=== PATIENT | female | born 1955 | race Caucasian/White ===

== ENCOUNTER 2023-05-17 07:36 | Outpatient (OUT) | payer BC, SELFPAY ==
[2023-05-17 08:29] LABS: Chol HDL Ratio 3.1; Cholesterol 135 mg/dL (<=200); HDL Cholesterol 44 mg/dL (40-60); LDL Cholesterol Calculated 73.6 mg/dL; Triglycerides 87 mg/dL (<=150); VLDL CHOLESTEROL 17.4 mg/dL
== END 2023-05-17 07:37 ==
LOC: LAB 07:39
PROVIDERS: PCP Family Medicine; Visit Provider Nurse Practitioner Family
DX: I25.10 Atherosclerotic heart disease of native coronary artery without angina pectoris (principal)
CPT/HCPCS: 36415; 80061

== ENCOUNTER 2023-06-14 12:46 | Outpatient (OUT) | payer BC, SELFPAY ==
[2023-06-14 14:12] LABS: Bilirubin Urine NEGATIVE (NEGATIVE); Blood Urine MODERATE (NEGATIVE); Glucose Urine UA NEGATIVE (NEGATIVE); Ketones Urine NEGATIVE (NEGATIVE); Leukocyte Esterase Urine MODERATE (NEGATIVE); Nitrite Urine POSITIVE (NEGATIVE); Protein Urine 30 mg/dL (NEG/TRACE); Specific Gravity Urine 1.025 (1.005-1.025); Urobilinogen Urine 0.2 EU/dL (0.2-1.0)
[2023-06-14 14:19] LABS: Clarity Urine CLOUDY (CLEAR); Color Urine YELLOW (YELLOW)
[2023-06-14 14:22] LABS: WBC Urine >100 #/HPF (NONE SEEN)
[2023-06-14 14:23] LABS: Bacteria Urine LARGE #/HPF (NONE SEEN); Mucus Urine NONE SEEN (NONE SEEN)
[2023-06-14 14:24] LABS: Squamous Epithelial Cell Urine FEW #/LPF (NONE/RARE)
== END 2023-06-14 12:47 | disposition home or self-care (01) ==
PROVIDERS: PCP Family Medicine; Visit Provider Internal Medicine
DX: N30.01 Acute cystitis with hematuria (principal)
CPT/HCPCS: 81001; 87086; 87186

== ENCOUNTER 2023-07-04 15:25 | Outpatient (OUT) | payer BC, SELFPAY ==
--- NOTE | 2023-07-04 16:04 | CA_ITS ---
Patient: MAXWELL TAI Exam Date: 07/04/2023 : 1955 Gender:F Ordering : MENDOZA NICK [facility] Admission #: [id number] Family : Order #: [id number] CLICK HERE TO VIEW EXAM ECHOCARDIOGRAM REPORT PROCEDURE: CA ECHO DOPPLER COMPLETE INDICATIONS: CAD, Chronic systolic heart failure COMPARISON: None. DESCRIPTION: COMPLETE ECHOCARDIOGRAM Real-time transthoracic echocardiography with 2D, M-mode, spectral and color flow Doppler performed. QUALITY: Technical quality was good. LEFT VENTRICLE: Normal chamber size. Normal left ventricular wall thickness. Global left ventricular systolic function is normal. LV EF: Visual estimation of left ventricular ejection fraction is 65-70% DIASTOLIC: Diastolic function is indeterminate. ATRIAL SEPTUM: LEFT ATRIUM: Mild dilatation. RIGHT ATRIUM: Mild dilatation. RIGHT VENTRICLE: Normal chamber size. Normal right ventricular systolic function. TRICUSPID VALVE: Normal mobility and thickness. No stenosis with mild regurgitation. Moderate pulmonary hypertension. RVSP 45 mmHg MITRAL VALVE: Normal mobility and thickness. No evidence of mitral valve stenosis. There is no mitral annular calcification. Trivial mitral regurgitation. AORTIC VALVE: Normal trileaflet appearance. No visible sclerosis. Normal leaflet mobility. No evidence of aortic valve stenosis. No aortic regurgitation. AORTIC ROOT: Normal diameter and appearance. PULMONIC VALVE: Normal thickness and mobility. No stenosis. No regurgitation. PERICARDIUM: No evidence of pericardial effusion. IVC: Collapses with inspirations. Normal size. PLEURA: CONCLUSION: 1. Normal left ventricular systolic function. LVEF is estimated at 65 to 70%. 2. Normal right ventricular size and systolic function. 3. Mild biatrial dilatation. 4. Mild tricuspid regurgitation. 5. Moderately elevated right-sided pressures. RVSP is 45 mmHg. 6. No pericardial effusion. Adult Echocardiography Procedure Report Left Ventricle LVEDD (3.7 - 5.6 cm): 5.43 cm LVESD (2.2 - 4.0 cm): 3.56 cm LVIVS thickness (0.6 - 1.2 cm): 0.96 cm LVPW thickness (0.5 - 1.0 cm): 1.01 cm e': 0.09 m/s E - e': 8.94 LVOT Max Gradient: 3.69 mm[Hg] LVOT Area (cm2): 0.96 m/s Peak Velocity (LVOT): 0.96 m/s Mean Velocity (LVOT): 0.60 m/s LVOT Diameter 2.03 cm Left Ventricular Ejection Fraction: 65-70% Left Atrium LA Volume Index (2D A2C): 41.91 ml/m2 Left Atrium Systolic Dimension: 4.77 cm Mitral Valve MV E to A Ratio: 1.08 Mitral Valve A-Wave Peak Velocity: 0.72 m/s Mitral Valve E-Wave Peak Velocity: 0.77 m/s Right Ventricle RV Internal Diastolic Dimension: 2.95 cm Aorta AO Root Diam: 2.75 cm Ascending Ao Diam: 2.58 cm Aortic Valve AoV Area (Peak Brad): 1.67 cm2, 1.67 cm2 AoV Area (VTI): 1.60 cm2, 1.60 cm2 Peak Velocity(Antegrade Flow): 1.86 m/s Peak Gradient(Antegrade Flow): 13.77 mm[Hg] Mean Velocity(Antegrade Flow): 1.24 m/s Mean Gradient(Antegrade Flow): 7.02 mm[Hg] Velocity Time Integral: 44.54 cm Tricuspid Valve Peak Velocity (Regurgitant Flow): 2.97 m/s, 2.82 m/s, 3.26 m/s Pulmonic Valve Mean Gradient: 3.22 mm[Hg], 3.70 mm[Hg] Mean Velocity: 0.85 m/s, 0.91 m/s Peak Velocity: 1.20 m/s Peak Gradient: 5.21 mm[Hg], 6.29 mm[Hg] Right Atrium Right Atrium Systolic Pressure: 46.77 ml, 46.77 ml Dictated by: Marv Cox M.D. on 07/04/2023 at 17:27 Approved by: Marv Cox M.D. on 07/04/2023 at 17:30
== END 2023-07-04 15:26 | disposition home or self-care (01) ==
LOC: CARD 15:27
PROVIDERS: PCP Family Medicine; Visit Provider Nurse Practitioner Family
DX: I25.10 Atherosclerotic heart disease of native coronary artery without angina pectoris (principal); I50.22 Chronic systolic (congestive) heart failure; I07.1 Rheumatic tricuspid insufficiency
CPT/HCPCS: 93306

== ENCOUNTER 2023-09-17 15:31 | Outpatient (OUT) | payer BC, SELFPAY ==
--- NOTE | 2023-09-17 15:55 | MM_ITS ---
Patient: MAXWELL TAI Exam Date: 09/17/2023 : 1955 Gender:F Ordering : DR Florencia Tipton M.D. Admission #: [id number] Family : Order #: [id number] CLICK HERE TO VIEW EXAM RADIOLOGY REPORT PROCEDURE: MM TOMOSYNTHESIS SCREENING BI COMPARISON: MG MAMM SCREEN 3D PETAR CAD, 09/06/2021. MG MAMM SCREEN 3D PETAR CAD, 09/10/2022. INDICATIONS: Screening Calculator Name NCI Breast Cancer Risk Assessment Tool 5 Year Breast Cancer Risk 3.60% Lifetime Breast Cancer Risk 12.60% Personal Breast Cancer No Personal Ovarian Cancer No Treatments None Family Cancers Mother with breast cancer at age 73; Father with skin cancer at age ~70. LOCATION: [facility] BREAST COMPOSITION: Heterogeneously dense,which may obscure small masses. FINDINGS: DIAGNOSTIC CATEGORY 1--NEGATIVE. NO CHANGE FROM COMPARISON ASSESSMENT. Scattered benign-appearing calcifications are present. RIGHT BREAST: No significant suspicious finding. LEFT BREAST: No significant suspicious finding. RECOMMENDATIONS: ROUTINE MAMMOGRAM AND CLINICAL EVALUATION IN 12 MONTHS. PLEASE NOTE: A NORMAL MAMMOGRAM DOES NOT EXCLUDE THE POSSIBILITY OF BREAST CANCER. A CLINICALLY SUSPICIOUS PALPABLE LUMP SHOULD BE BIOPSIED. Dictated by: Angel Young MD on 09/18/2023 at 06:48 Approved by: Angel Young MD on 09/18/2023 at 06:49
== END 2023-09-17 15:32 | disposition home or self-care (01) ==
LOC: MAMMO 15:31
PROVIDERS: PCP Family Medicine; Visit Provider Family Medicine
DX: Z12.31 Encounter for screening mammogram for malignant neoplasm of breast (principal); Z80.3 Family history of malignant neoplasm of breast; Z80.8 Family history of malignant neoplasm of other organs or systems
CPT/HCPCS: 77063; 77067

== ENCOUNTER 2023-11-22 07:05 | Outpatient (OUT) | payer BC, SELFPAY ==
[2023-11-22 07:25] LABS: Basophils Percent Auto 0.5 % (0.2-2.0); Eosinophils Absolute Auto 0.4 10^3/uL (0.0-0.7); Eosinophils Percent Auto 4.7 % (0.9-7.0); Hematocrit 42.9 % (36.0-48.0); Hemoglobin 14.3 g/dL (12.0-16.0); Immature Granulocytes Abs Auto 0.02 10^3/uL (0.00-0.03); Immature Granulocytes Pct Auto 0.2 % (0.0-0.5); Lymphocytes Absolute Auto 2.9 10^3/uL (1.2-3.8); Lymphocytes Percent Auto 35.5 % (20.5-60.0); Mean Corpuscular HGB Conc 33.3 g/dL (29.9-35.2); Mean Corpuscular Hemoglobin 30.2 pg (26.7-34.0); Mean Corpuscular Volume 90.7 fL (81.0-99.0); Mean Platelet Volume 10.3 fL (9.5-13.5); Monocytes Absolute Auto 0.8 10^3/uL (0.3-0.8); Neutrophils Absolute Auto 4.1 10^3/uL (1.4-6.5); Neutrophils Percent Auto 49.1 % (43.0-75.0); Platelet Count 310 10^3/uL (150-450); Red Blood Count 4.73 10^6/uL (4.20-5.40); Red Cell Distribution Width 12.2 % (11.0-15.0); White Blood Count 8.3 10^3/uL (4.0-11.0)
[2023-11-22 07:59] LABS: Estimated Average Glucose 131 mg/dL; Glycohemoglobin A1C 6.2 % (4.5-6.2)
[2023-11-22 08:13] LABS: Alanine Aminotransferase 23 U/L (14-59); Albumin Globulin Ratio 1.2; Albumin Level 3.8 g/dL (3.4-5.0); Alkaline Phosphatase 65 U/L (46-116); Anion Gap 10.8; Aspartate Amino Transferase 13 U/L (15-37); BUN Creatinine Ratio 33.3; Bilirubin Total 0.5 mg/dL (0.2-1.0); Calcium 9.4 mg/dL (8.5-10.1); Carbon Dioxide 30.7 mmol/L (21.0-32.0); Chloride 101 mmol/L (98-107); Chol HDL Ratio 3.1; Cholesterol 126 mg/dL (<=200); Estimated GFR (African America >60 (>=60); Estimated GFR (Non-African Ame >60 (>=60); Globulin 3.1 g/dL; Glucose 119 mg/dL (74-106); HDL Cholesterol 41 mg/dL (40-60); LDL Cholesterol Calculated 68.6 mg/dL; Potassium 3.5 mmol/L (3.5-5.1); Sodium 139 mmol/L (136-145); Thyroid Stimulating Hormone 0.258 uIU/mL (0.358-3.740); Total Protein 6.9 g/dL (6.4-8.2); Triglycerides 82 mg/dL (<=150); VLDL CHOLESTEROL 16.4 mg/dL
== END 2023-11-22 07:06 | disposition home or self-care (01) ==
LOC: LAB 07:05
PROVIDERS: PCP Family Medicine; Visit Provider Family Medicine
DX: Z00.00 Encounter for general adult medical examination without abnormal findings (principal); R39.15 Urgency of urination
CPT/HCPCS: 36415; 80053; 80061; 83036; 84443; 85025; 87086; 87150; 87186

== ENCOUNTER 2023-12-05 15:42 | Outpatient (OUT) | payer BC, SELFPAY ==
[2023-12-05 15:53] LABS: Bilirubin Urine NEGATIVE (NEGATIVE); Blood Urine TRACE-I (NEGATIVE); Clarity Urine CLEAR (CLEAR); Color Urine YELLOW (YELLOW); Glucose Urine UA NEGATIVE (NEGATIVE); Ketones Urine NEGATIVE (NEGATIVE); Leukocyte Esterase Urine TRACE (NEGATIVE); Nitrite Urine NEGATIVE (NEGATIVE); Protein Urine NEGATIVE (NEG/TRACE); Specific Gravity Urine >=1.030 (1.005-1.025); Urobilinogen Urine 0.2 EU/dL (0.2-1.0); pH Urine 5.5 (5.0-9.0)
--- OUTSIDE RECORDS SUMMARY | 2023-12-05 16:04 | XMS_ITS | CCD ---
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 common femoral vein and artery was obtained. A 6-Telugu 11 cm sheath was placed in each. Baseline femoral angiography was performed via the inner cannula of a micropuncture kit prior to up sizing to a 6-Telugu sheath. Right heart catheterization was performed using a Martinez catheter via the venous sheath. Pressures were measured in the right atrium, right ventricle, pulmonary artery, and pulmonary capillary wedge positions. Oxygen saturations were obtained and cardiac output/cardiac index was calculated using the Nithya principle. Bilateral selective coronary angiography was performed using JL4 and JR4 catheters. An angled pigtail catheter was used for left heart catheterization and left ventriculography utilizing 36 mL at a constant rate of 12 mL/second. Aortic pullback pressure measurements were performed. At this point, it was elected to conclude the procedure. A 6-Telugu MynxGrip closure device was deployed per protocol achieving optimal hemostasis over the femoral arterial puncture site. The venous sheath was removed with application of manual pressure to achieve optimal hemostasis. Overall, the patient tolerated the procedure well. There were no overt complications. She was to be transferred to the holding area in stable condition. FINDINGS: Hemodynamics: AO 118/64. RA 10. RV 35/8, 10. PA 35/16 (25). PCWP 15. TPG 10. Cardiac output 4.59/cardiac index 2.65. AO sat 89%/PA sat 65%. LEFT VENTRICULOGRAPHY: This shows an ejection fraction of 30% to 35% with global hypokinesis and 1 to 2+ mitral regurgitation. The left ventricular cavity appears enlarged. The aorta is within normal limits with no obvious aneurysmal segments or dissection flaps. CORONARY ARTERIES: Left main coronary artery: This arises from the left coronary cusp. It bifurcates into the left anterior descending and left circumflex coronary arteries and is free of significant stenosis. Left anterior descending coronary artery: This shows mild luminal irregularities. Left circumflex coronary artery: This shows mild luminal irregularities particularly in the midportion and the AV groove. Right coronary artery: This shows a dominant vessel giving rise to the posterior descending and posterolateral branches. It shows a 20% to 30% proximal stenosis with superimposed spasm. The distal circulation shows mild caliber reduction. No high-grade stenosis is seen. Limited femoral angiography: that shows mild plaque and anatomy suitable for closure device. INDICATIONS: The patient is a 64-year-old woman who requires upcoming orthopedic surgery; an echocardiogram revealed a significantly reduced ejection fraction. She was referred for invasive coronary angiography and a hemodynamic study. Findings and management strategies are outlined above. Electronically Signed by: Benitez Vallejo M.D. 11/12/2019 03:17 P Benitez Vallejo M.D. Date Dict: 11/05/201901:53 Ravi/Benitez Vallejo M.D. Date Trans: 11/06/2019 06:49 Neri/ryan [id number] cc: Florencia Wolf M.D. [address] [place] [address] Girish Schilling M.D. [address] [place] [id number] Normal [facility] BASIC METABOLIC PANELon 12-0 Calcium [Mass/Vol] 7.4 mg/dL Low 8.6-10.3 [facility] Comment on above: Performed By: #### 0 0071 #### [facility] [address] [facility] [place] [address], [facility] Chloride [Moles/Vol] 110 mmol/L High 98-107 [facility] Comment on above: Performed By: #### 0 0071 #### [facility] [address] [place] [address], [facility] CO2 [Moles/Vol] 24 mmol/L Normal 21-31 [facility] Comment on above: Performed By: #### 0 0071 #### [facility] [address] [address], [facility] Creatinine [Mass/Vol] 0.50 mg/dL Low 0.60-1.20 [facility] Comment on above: Performed By: #### 0 0071 #### [facility] [address] [place] [address], [place] GFR/1.73 sq M predicted among blacks MDRD (S/P/Bld) [Vol rate/Area] mL/min/{1.73_m2} Normal >60 [facility] Comment on above: Performed By: #### 0 0071 #### [facility] [address] [place] [address], [place] GFR/1.73 sq M predicted among non-blacks MDRD (S/P/Bld) [Vol rate/Area] mL/min/{1.73_m2} Normal >60 [facility] Comment on above: Performed By: #### 0 0071 #### [facility] [address] [place] [address], [place] Glucose [Mass/Vol] 75 mg/dL Normal 70-100 [facility] Comment on above: Performed By: #### 0 0071 #### [facility] [address] [place] [address], [place] Potassium [Moles/Vol] 2.7 mmol/L Low 3.5-5.1 [facility] Comment on above: Performed By: #### 0 0071 #### [facility] [address] [place] [address], [place] Sodium [Moles/Vol] 141 mmol/L Normal 136-145 [facility] Comment on above: Performed By: #### 0 0071 #### [facility] [address] [place] [address], [place] Urea nitrogen [Mass/Vol] 16 mg/dL Normal 7-25 [facility] Comment on above: Performed By: #### 0 0071 #### [facility] [address] [place] [address], [place] Vital Signs Date Time Vital Sign Value Performing Clinician Facility 11-18-2023 14:00-0500 Body height 157.48 cm Florencia Wolf Other [facility] 11-18-2023 14:00-0500 Body mass index (BMI) [Ratio] 28.82 kg/m2 Florencia Wolf Other [facility] 11-18-2023 14:00-0500 Body temperature 96.8 [degF] Florencia Wolf Other [facility] Other 11-18-2023 14:00-0500 Body weight 71.49 kg Florencia Wolf Other [facility] Other 11-18-2023 14:00-0500 Diastolic blood pressure 72 mm[Hg] Florencia Wolf Other [facility] Other 11-18-2023 14:00-0500 Systolic blood pressure 130 mm[Hg] Florencia Wolf Other [facility] Other Encounters Encounter Date Encounter Type Care Provider Facility Start: 11-28-2023 End: 11-28-2023 ambulatory Florencia Wolf Other [facility] Start: 11-28-2023 Telephone encounter Florencia Wolf [facility] Start: 11-18-2023 End: 11-18-2023 ambulatory Florencia Wolf Other [facility] Start: 11-18-2023 Encounter for genera l adult medical examination without abnormal findings Florencia Wolf [facility] Start: 11-18-2023 Periodic preventive med est patient 65yrs& older Florencia Wolf [facility] Start: 11-15-2023 End: 11-15-20[facility] Start: 09-11-2023 End: 09-11-2023 ambulatory Florencia Wolf Other [facility] Start: 09-11-2023 Telephone encounter Florencia Wolf [facility] Start: 07-10-2023 End: 07-10-2023 ambulatory Boo Walker Other [facility] Other Start: 07-10-2023 Telephone encounter Boo Walker [facility] Start: 06-18-2023 End: 06-18-2023 ambulatory Boo Walker Other [facility] Other Start: 06-18-2023 Telephone encounter Boo Walker [facility] Start: 06-14-2023 End: 06-14-2023 ambulatory Boo Walker Other [facility] Other Start: 06-14-2023 Telephone encounter Boo Walker [facility] Start: 06-07-2023 End: 06-07-2023 ambulatory Florencia Wolf Other [facility] Other Start: 06-07-2023 Nursing evaluation o f patient and report Florencia Wolf [facility] Start: 05-06-2023 End: 05-06-2023 ambulatory [facility] Start: 03-28-2023 End: 03-29-[address] BOO WALKER Facility:[facility] Start: 12-12-2022 ambulatory [facility] Facility:[facility] Start: 11-19-2022 End: 11-20-[address] HORACIO ORO Facility:[facility] Start: 11-19-2022 End: 11-19-2022 ambulatory [facility] Start: 11-13-2022 Adult health examination Boo Walker Other [facility] Other Start: 11-12-2022 Encounter for genera l adult medical examination without abnormal findings DR FLORENCIA WOLF [facility] Start: 11-09-2022 End: 11-10-[address] FLORENCIA WOLF Facility:[facility] Start: 11-09-2022 End: 11-10-2022 Encounter for general adult medical examination without abnormal findings DR FLORENCIA WOLF Facility: Start: 10-05-2022 End: 10-06-[address] LILIYA PONCE . Facility:[facility] Start: 09-10-2022 End: 09-11-[address] FLORENCIA WOLF Facility: Start: 11-05-2019 End: 11-06-2019 Patient encounter procedure EHAB Neri VALLEJO Facility:[facility] Start: 10-06-2019 Problem, abnormal examination Boo Walker Other [facility] Other Procedures Date Procedure Procedure Detail Performing Clinician Start: 04-08-2014 General examination of patient Boo Walker Other Screening for malign ant neoplasm of breast Boo Walker Other Immunizations Immunization Date Immunization Notes Care Provider Miguel kirk 03-25-2023 Shingrix 50 MCG/0.5M L; Translations: [Shingrix 50 MCG/0.5ML] Florencia Wolf Other [facility] Other Payers Date Payer Category Payer Unknown [id number] 2022 Unknown [id number] 2019 Unknown [id number] 1957 Self-pay [id number] 1955 Unknown [id number] 2.16.8 [id number] 1955 Unknown [id number] 2.16.84 [id number] 1955 Unknown [id number] 2.16.84 [id number] 1955 Unknown [id number] 2.16.84 [id number] 1955 Unknown [id number] 2.16.84 [id number] 1955 Unknown [id number] 2.16.84 [id number] Unknown [id number] Unknown [id number] Social History Date Type Detail Facility Sex Assigned At [facility] Other Clinical Notes 11-19-2022 to 11-29-2023 Note Date & Type Note Facility 11-29-2023 History general N arrative - Reported Type Medical History Problem Title : Adul t BMI between 22 kg/m2 and 30 kg/m2, Problem Description : Adult BMI between 22 kg/m2 and 30 kg/m2, Problem Comment : 0~0~0, Problem Status : Active,, Medical History Problem Title : Adul t BMI greater than or equal to 30 kg/m2, Problem Description : Adult BMI greater than or equal to 30 kg/m2, Problem Comment : 0~1~0, Problem Status : Active,, Medical History Problem Title : Adul t BMI less than 22 kg/m2, Problem Description : Adult BMI less than 22 kg/m2, Problem Comment : 0~0~0, Problem Status : Active,, Medical History Problem Title : Chil d BMI less than 18.5 kg/m2, Problem Description : Child BMI less than 18.5 kg/m2, Problem Comment : 0~1~0, Problem Status : Active,, Medical History Problem Title : comp liance with medical treatment, Problem Description : compliance with medical treatment, Problem Comment : Done, Problem Status : Active,, Medical History Problem Title : Depr ession Screening, Problem Description : Depression Screening, Problem Comment : Negative, Problem Status : Active,, Medical History Problem Title : Esse ntial (primary) hypertension [], Problem Description : Essential (primary) hypertension [], Problem Comment : Essential (primary) hypertension, Problem Status : Active,, Medical History Problem Title : narc otic contract, date signed, Problem Description : narcotic contract, date signed, Problem Comment : Done , Problem Status : Active,, Medical History Problem Title : no k nown problems, Problem Description : no known problems, Problem Comment : F, Problem Status : Active,, Medical History Problem Title : past medical history E&M, Problem Description : past medical history E&M, Problem Comment : HTN Anxiety Insomnia Hx of nephrocalcinosis GERD Hypertriglycerides, Problem Status : Active,, Medical History Problem Title : past medical history reviewed, Problem Description : past medical history reviewed, Problem Comment : reviewed - no changes required, Problem Status : Active,, Medical History Problem Title : PHQ2 Questionairre Score, Problem Description : PHQ2 Questionairre Score, Problem Comment : 0, Problem Status : Active,, Medical History Problem Title : PHQ9 Question One score, Problem Description : PHQ9 Question One score, Problem Comment : 0, Problem Status : Active,, Medical History Problem Title : PHQ9 Question Two score, Problem Description : PHQ9 Question Two score, Problem Comment : 0, Problem Status : Active,, Medical History Problem Title : smok ing/tobacco cessation, patient education and counseling, Problem Description : smoking/tobacco cessation, patient education and counseling, Problem Comment : yes, Problem Status : Active,, Medical History Problem Title : very low density lipoproteins, Problem Description : very low density lipoproteins, Problem Comment : 29.0, Problem Status : Active,, Surgical History Problem Title : past surgical history reviewed, Problem Description : past surgical history reviewed, Problem Comment : reviewed - no changes required, Problem Status : Active, Surgical History Problem Title : surg ical procedures, hx of, Problem Description : surgical procedures, hx of, Problem Comment : [facility] 1996 - dysmenorrhea - BSO and Appy B upper blepharoplasty Colonoscopy 2010 - hyperplastic polyp, Problem Status : Active, Surgical History 2: 06/2018 - Stepanic, Problem S tatus : Active, Surgical History 1: Problem Title : s urgical procedures, hx of, Problem Description : surgical procedures, hx of, Problem Comment : [facility] 1996 - dysmenorrhea - BSO and Appy B upper blepharoplasty Colonoscopy 2010 - hyperplastic polyp R knee arthroscopic surgery Surgical History 2: 06/2018, Problem Status : Act linnea, [facility] Other 12-28-2023 Evaluation note* Encounter Date Diagnosis Assessment Notes Treatment Notes Treatment Clinical Notes Nov, Acute cystitis without hematuria (ICD-10 - N30.00) [facility] Other 12-22-2023 History general Narrative - Reported* Type Description Date Medical History Problem Title : Adul t BMI between 22 kg/m2 and 30 kg/m2, Problem Description : Adult BMI between 22 kg/m2 and 30 kg/m2, Problem Comment : 0~0~0, Problem Status : Active,, Medical History Problem Title : Adul t BMI greater than or equal to 30 kg/m2, Problem Description : Adult BMI greater than or equal to 30 kg/m2, Problem Comment : 0~1~0, Problem Status : Active,, Medical History Problem Title : Adul t BMI less than 22 kg/m2, Problem Description : Adult BMI less than 22 kg/m2, Problem Comment : 0~0~0, Problem Status : Active,, Medical History Problem Title : Chil d BMI less than 18.5 kg/m2, Problem Description : Child BMI less than 18.5 kg/m2, Problem Comment : 0~1~0, Problem Status : Active,, Medical History Problem Title : comp liance with medical treatment, Problem Description : compliance with medical treatment, Problem Comment : Done, Problem Status : Active,, Medical History Problem Title : Depr ession Screening, Problem Description : Depression Screening, Problem Comment : Negative, Problem Status : Active,, Medical History Problem Title : Esse ntial (primary) hypertension [], Problem Description : Essential (primary) hypertension [], Problem Comment : Essential (primary) hypertension, Problem Status : Active,, Medical History Problem Title : narc otic contract, date signed, Problem Description : narcotic contract, date signed, Problem Comment : Done , Problem Status : Active,, Medical History Problem Title : no k nown problems, Problem Description : no known problems, Problem Comment : F, Problem Status : Active,, Medical History Problem Title : past medical history E&M, Problem Description : past medical history E&M, Problem Comment : HTN Anxiety Insomnia Hx of nephrocalcinosis GERD Hypertriglycerides, Problem Status : Active,, Medical History Problem Title : past medical history reviewed, Problem Description : past medical history reviewed, Problem Comment : reviewed - no changes required, Problem Status : Active,, Medical History Problem Title : PHQ2 Questionairre Score, Problem Description : PHQ2 Questionairre Score, Problem Comment : 0, Problem Status : Active,, Medical History Problem Title : PHQ9 Question One score, Problem Description : PHQ9 Question One score, Problem Comment : 0, Problem Status : Active,, Medical History Problem Title : PHQ9 Question Two score, Problem Description : PHQ9 Question Two score, Problem Comment : 0, Problem Status : Active,, Medical History Problem Title : smok ing/tobacco cessation, patient education and counseling, Problem Description : smoking/tobacco cessation, patient education and counseling, Problem Comment : yes, Problem Status : Active,, Medical History Problem Title : very low density lipoproteins, Problem Description : very low density lipoproteins, Problem Comment : 29.0, Problem Status : Active,, Surgical History Problem Title : past surgical history reviewed, Problem Description : past surgical history reviewed, Problem Comment : reviewed - no changes required, Problem Status : Active, Surgical History Problem Title : surg ical procedures, hx of, Problem Description : surgical procedures, hx of, Problem Comment : [facility] 1996 - dysmenorrhea - BSO and Appy B upper blepharoplasty Colonoscopy 2010 - hyperplastic polyp, Problem Status : Active, Surgical History 2: 06/2018 - Stepanic, Problem S tatus : Active, Surgical History 1: Problem Title : s urgical procedures, hx of, Problem Description : surgical procedures, hx of, Problem Comment : [facility] 1996 - dysmenorrhea - BSO and Appy B upper blepharoplasty Colonoscopy 2010 - hyperplastic polyp R knee arthroscopic surgery Surgical History 2: 06/2018, Problem Status : Act [facility] Other 12-18-2023 Evaluation note* Encounter Date Diagnosis Assessment Notes Treatment Notes Treatment Clinical Notes Nov, Well adult exam (ICD-10 - Z00.00) We have discussed the necessity of following up with PCP regularly as well as specialists, as needed. Discussed F/U with dentistry and optometry at least yearly. Discussed all preventative measures/ cancer screenings as applicable to this patient. Emphasized the importance of a reduced fat, low carb diet to promote heart health and controlled blood sugars. Reviewed social history and ensured patient is safe within the home today. Pt denies any abuse of alcohol, nicotine, caffeine or recreational drugs. I have ensured patient is of stable mental and physical health today. We have discussed appropriate F/U schedule as well as blood work and vaccinations that apply. All questions answered and patient is sent home pleased, without concerns. Nov, Urinary urgency (ICD-10 - R39.15) assess UA r/o UTI Nov, Acute sinusitis, unspecified (ICD-10 - J01.90) Sinus infections can be triggered by a secondary infection from a viral URI or even seasonal allergies. Take antibiotic as directed, and complete all doses even if symptoms are no longer present. Encouraged pt to take antibiotic with food to prevent GI upset. Use Flonase, once daily. Takes 5-7 days of consistent use to see full benefits of medication. Encouaged patient to begin using Mucinex OTC as directed to help thin and break up mucus. Patient advised to follow up with PCP if symptoms persist despite treatment, or sooner if symptoms worsen. Patient verbalized understanding and agreement with treatment plan. Nov, Anxiety, generalized (ICD-10 - F41.1) Pt uses med sparingly Take medication PRN for anxiety. Never use Alprazolam in any other way than it is prescribed on the bottle by the provider. Alprazolam may be habit-forming. Never share this medicine with another person, especially someone with a history of drug abuse or addiction. Keep the medication in a place where others cannot get to it, especially out of reach of children. Misuse of habit-forming medicine can cause addiction, overdose, or . Selling or giving away this medicine is against the law. Do not drink alcohol while taking this medication. Can cause drowsiness. Do not drive or operate machinery while taking this medication. [facility] Other [id number] NoteCurrently euvolemic without exacerbation She has never been evaluated for any pulmonary disease emphysema that she has a long history of smoking and is a current Discussed with her about pulmonary function test and referral to pulmonology with RSVP/right-sided pressures elevated and she does not want to pursue this at this time.[facility]12-15-2023 NoteCoronary artery disease is stable Continue GDMT continue risk factor modifications- heart healthy diet, regular exercise as tolerated and continue all medications.[facility] 11-15-2023 NoteHypertension is Currently well-controlled 109/68 Continue all current medications including carvedilol, hydrochlorothiazide, lisinopril Patient has annual follow-up with her PCP [facility]Un[facility] NoteMild MR on current echo- Will monitor with routine echoes currently asymptomaticUnMercy Health St. [facility]12-15-2023 Note Recovered EF- 65% on recent echo [facility] II- currently euvolemic without exacerbation Continue GDMT- ASA, lipitor, coreg and lisinopril Diuretic therapy- none needed at this time Monitor daily weights, I&O, fluid restriction 1.5-2L/day, renal function and electrolytesWadsworth-Rittman Hospital12-15-2023 NoteUTP CARDIOLOGY PROGRESS NOTE HPI: Robyn Tai is a 68 y.o. female here for PMHx of HFrEF, NICM (viral), mild CAD per 11/2019 cath, diastolic dysfunction, MR, HTN, anxiety. Patient here for 6 mo follow up CAD, chronic CHF, hypertension, and mitral valve regurgitation. Had echo in Jul 2023. She denies chest pain, palpitations, and lightheadedness. Says her SOB w/ exertion remains unchanged. Remains a current smoker states she is not ready to quit smoking at this time Does admit typical shortness of breath but denies chest pain, orthopnea. Currently states she has a upper respiratory infection, denies fever, chills, worsening shortness of breath Review of Systems HENT: Positive for tinnitus. Cardiovascular: Positive for dyspnea on exertion. Respiratory: Positive for cough. Musculoskeletal: Positive for back pain and joint pain. All other systems reviewed and are negative. Visit Vitals BP 109/68 (BP Location: Left arm, Patient Position: Sitting) Pulse 77 Ht 1.575 m (5' 2 ) Wt 71.2 kg (157 lb) SpO2 94% BMI 28.72 kg/m??? Smoking Status Every Day BSA 1.76 m??? No Known Allergies Medications: Current Outpatient Medications on File Prior to Visit Medication Sig Dispense Refill aspirin 81 mg EC tablet Take 1 tablet every day by oral route. atorvastatin (Lipitor) 40 mg tablet Take 1 tablet (40 mg) by mouth in the morning. 90 tablet 3 carvedilol (Coreg) 6.25 mg tablet Take 1 tablet (6.25 mg) by mouth in the morning and at bedtime. 180 tablet 3 fenofibrate (Lofibra) 160 mg tablet Take 160 mg by mouth in the morning. hydroCHLOROthiazide (HYDRODiuril) 25 mg tablet Take 25 mg by mouth in the morning. lansoprazole (Prevacid) [address] capsule Take by mouth in the morning. lisinopril 10 mg tablet TAKE 1 TABLET BY MOUTH EVERY DAY 90 tablet 3 No current facility-administered medications on file prior to visit. Physical Exam: Constitutional: Appearance: Normal appearance. Without apparent distress HENT: Head: Normocephalic and atraumatic. Nose: Nose normal. Mouth/Throat: Mouth: Mucous membranes are moist. Eyes: Extraocular Movements: Extraocular movements intact. Conjunctiva/sclera: Conjunctivae normal. Neck: Vascular: No JVD. Cardiovascular: Rate and Rhythm: Normal rate and regular rhythm. Pulses: Dorsalis pedis pulses are 3 on the right side and 3on the left side. Posterior tibial pulses are 3 on the right side and 3 on the left side. Heart sounds: Normal heart sounds, S1 normal and S2 normal. Pulmonary: Effort: Pulmonary effort is normal. Breath sounds: Normal breath sounds. Abdominal: General: Bowel sounds are normal. Palpations: Abdomen is soft. Musculoskeletal: General: Normal range of motion. Cervical back: Normal range of motion. Right lower leg: No edema. Left lower leg: No edema. Skin: General: Skin is warm and dry. Capillary Refill: Capillary refill takes less than 2 seconds. Neurological: General: No focal deficit present. Mental Status: She is alert and oriented to person, place, and time. Psychiatric: Mood and Affect: Mood normal. Behavior: Behavior normal. Thought Content: Thought content normal. Judgment: Judgment normal. Labs: Lipid levels well-controlled cholesterol 135 and LDL 73.6- Continue statin Chol 135, TRIG 87, HDL 44, LDL 73.6 Last lab values have been reviewed CV Testing: Reviewed echocardiogram with patient ejection fraction LV systolic function normal, elevated right-sided pressures with RVSP of 45 and discussed with her about pulmonary studies and she defers at this time 07/04/23 TTE ECHO 08/25/20: EF >55%, grade I DD, mild LA dilatation, mild MR and mild TR, normal right sided pressures Echocardiogram 01/2020 Global left ventricular systolic function is low normal limits. EF is 50 to 55%. Normal right ventricular systolic function. Moderate diastolic dysfunction. Left ventricular hypertrophy. Mild mitral regurgitation. Normal right-sided pressures. Event monitor 12/2019: Sinus rhythm with couplets, PVCs, trigeminal PVCs and multifocal PVCs. Heart rate average of 80 bpm. Assessment/Plan: Systolic heart failure (CMS/HCC) Recovered EF- 65% on recent echo [facility] II- currently euvolemic without exacerbation Continue GDMT- ASA, lipitor, coreg and lisinopril Diuretic therapy- none needed at this time Monitor daily weights, I&O, fluid restriction 1.5-2L/day, renal function and electrolytes Mitral valve regurgitation Mild MR on current echo- Will monitor with routine echoes currently asymptomatic Essential hypertension Hypertension is Currently well-controlled 109/68 Continue all current medications including carvedilol, hydrochlorothiazide, lisinopril Patient has annual follow-up with her PCP tomorrow Coronary atherosclerosis Coronary artery disease is stable Continue GDMT continue risk factor modifications- heart healthy diet, regular exercise as tolerated and continue al (more content not included)...[facility]12-15-2023 NotePatient here for 6 mo follow up CAD, chronic CHF, hypertension, and mitral valve regurgitation. Had echo in Jul 2023. She denies chest pain, palpitations, and lightheadedness. Says her SOB w/ exertion remains unchanged. Review of Systems HENT: Positive for tinnitus. Cardiovascular: Positive for dyspnea on exertion. Respiratory: Positive for cough. Musculoskeletal: Positive for back pain and joint pain. All other systems reviewed and are negative.[facility] 09-11-2023 Evaluation note* Encounter Date Diagnosis Assessment Notes Treatment Notes Treatment Clinical Notes Sep, Screening mammogram, encounter for (ICD-10 - Z12.31) [facility] Other 07-14-2023 Evaluation note* Encounter Date Diagnosis Assessment Notes Treatment Notes Treatment Clinical Notes Jun, Acute cystitis with hematuria (ICD-10 - N30.01) [employer] Other 07-14-2023 Evaluation note* Encounter Date Diagnosis Assessment Notes Treatment Notes Treatment Clinical Notes Jun, Acute cystitis without hematuria (ICD-10 - N30.00) [facility] Other 07-07-2023 Evaluation note* Encounter Date Diagnosis Assessment Notes Treatment Notes Treatment Clinical Notes Jun, Acute cystitis with hematuria (ICD-10 - N30.01) [facility] SUB[facility] Chief Complaint Patient presents with Coronary Artery Disease Hypertension Congestive Heart Failure Robyn aTi is a 67 y.o. female here for follow-up. HPI PMHx of HFrEF, NICM (viral), mild CAD per 11/2019 cath, diastolic dysfunction, MR, HTN, anxiety. 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 She gets her BP checked at work periodically and readings have been normal. She stays active at her job, no other exercise regimen. She denies c/o CP, worsening dyspnea, orthopnea, PND, LE edema, dizziness/LH, palpitations. Patient Active Problem List Diagnosis Coronary atherosclerosis Diastolic dysfunction Essential hypertension Generalized anxiety disorder Mitral valve regurgitation Systolic heart failure (CMS/HCC) Past Medical History: Diagnosis Date CHF (congestive heart failure) (CMS/HCC) Coronary artery disease Diastolic dysfunction Heart valve disease Hypertension No family history on file. No Known Allergies ROS HENT: Positive for tinnitus. Cardiovascular: Positive for dyspnea on exertion. Respiratory: Positive for cough. Musculoskeletal: Positive for back pain and joint pain. All other systems reviewed and are negative. OBJECTIVE Visit Vitals BP 101/57 (BP Location: Left arm, Patient Position: Sitting) Pulse 59 Ht 1.575 m (5' 2 ) Wt 73.9 kg (163 lb) SpO2 98% BMI 29.81 kg/m??? BSA 1.8 m??? Medications: Current Outpatient Medications: aspirin 81 mg EC tablet, Take 1 tablet every day by oral route., Disp: , Rfl: atorvastatin (Lipitor) 40 mg tablet, TAKE 1 TABLET BY MOUTH EVERY DAY, Disp: 90 tablet, Rfl: 2 carvedilol (Coreg) 6.25 mg tablet, Take 1 tablet (6.25 mg) by mouth in the morning and at bedtime., Disp: 180 tablet, Rfl: 3 fenofibrate (Lofibra) 160 mg tablet, Take 160 mg by mouth in the morning., Disp: , Rfl: hydroCHLOROthiazide (HYDRODiuril) 25 mg tablet, Take 25 mg by mouth in the morning., Disp: , Rfl: lansoprazole (Prevacid) [address] capsule, Take by mouth in the morning., Disp: , Rfl: lisinopril 10 mg tablet, TAKE 1 TABLET BY MOUTH EVERY DAY, Disp: 90 tablet, Rfl: 3 Physical Exam Vitals reviewed. Constitutional: Appearance: Normal appearance. She is normal weight. HENT: Head: Normocephalic and atraumatic. Right Ear: External ear normal. Left Ear: External ear normal. Eyes: Extraocular Movements: Extraocular movements intact. Conjunctiva/sclera: Conjunctivae normal. Pupils: Pupils are equal, round, and reactive to light. Neck: Vascular: No carotid bruit. Cardiovascular: Rate and Rhythm: Normal rate and regular rhythm. Pulses: Normal pulses. Heart sounds: Normal heart sounds. Pulmonary: Effort: Pulmonary effort is normal. Breath sounds: Normal breath sounds. Abdominal: General: Bowel sounds are normal. Palpations: Abdomen is soft. Musculoskeletal: Cervical back: Neck supple. Right lower leg: No edema. Left lower leg: No edema. Skin: General: Skin is warm and dry. Neurological: General: No focal deficit present. Mental Status: She is alert and oriented to person, place, and time. Psychiatric: Mood and Affect: Mood normal. Behavior: Behavior normal. Thought Content: Thought content normal. Judgment: Judgment normal. Labs: 11/09/2022 Cr 0.71, BUN 21, K 3.6, Na 141, eGFR >60 Chol 150, HDL 46, trig 72, LDL 89 TSH 0.294 [facility] Encounter on 11/05/2019 Component Date Value Ref Range Status Glucose 11/05/2019 75 70 - 100 mg/dL Final BUN 11/05/2019 16 7 - 25 mg/dL Final Creatinine 11/05/2019 0.50 (A) 0.60 - 1.20 mg/dL Final Sodium 11/05/2019 141 136 - 145 meq/L Final Potassium 11/05/2019 2.7 (A) 3.5 - 5.1 meq/L Final Chloride 11/05/2019 110 (A) 98 - 107 meq/L Final CO2 11/05/2019 24 21 - 31 meq/L Final Calcium 11/05/2019 7.4 (A) 8.6 - 10.3 mg/dL Final eGFR - Non- 11/05/2019 >60 >60 ml/min/1.73sq m Final eGFR - 11/05/2019 >60 >60 ml/min/1.73sq m Final Testing/Procedures: ECHO 08/25/20: EF >55%, grade I DD, mild LA dilatation, mild MR and mild TR, normal right sided pressures Echocardiogram 01/2020 Global left ventricular systolic function is low normal limits. EF is 50 to 55%. Normal right ventricular systolic function. Moderate diastolic dysfunction. Left ventricular hypertrophy. Mild mitral regurgitation. Normal right-sided pressures. Event monitor 12/2019: Sinus rhythm with couplets, PVCs, trigeminal PVCs and multifocal PVCs. Heart rate average of 80 bpm. ASSESSMENT/PLAN: Diagnosis Plan 1. Coronary artery disease involving kar[place] coronary artery of kar[place] heart without angina pectoris Lipid panel Transthoracic echo (TTE) complete 2. Chronic combined systolic and diastolic heart failure (CMS/HCC) Transthoracic echo (TTE) complete 3. Benign hypertensive heart disease with heart failure (CMS/HCC) 4. Mixed hyperlipidemia 5 (more content not included)...[facility]06-05-2023 NotePatient here for 6 mo follow up CAD, systolic heart failure, and hypertension. No lab work or testing since last visit in Nov 2022. Denies chest pain, and states her SOB w/ exertion remains unchanged. Review of Systems HENT: Positive for tinnitus. Cardiovascular: Positive for dyspnea on exertion. Respiratory: Positive for cough. Musculoskeletal: Positive for back pain and joint pain. All other systems reviewed and are negative.[facility] 11-19-2022 Note-recent echo 08/2020 shows EF 55%, mild MR and TR -she has had no symptoms in last 6 months -appears euvolemic today -continue coreg, lisinopril, coreg, statin, fenofibrate, hydrochlorothiazide [facility]12-19-2022 NoteHypertension is stable today -continue coreg, hydrochlorothiazide, lisinoprilUn[facility]12-[facility]2022 NoteMild grade 1 -stable at this timeUnMercy [facility] St[facility]12-19-2022 NoteCoronary artery disease is stable -continue lipitor, fenofibrate, aspirin -opted to wait 6 months and repeat lipids to determine if she needs increase in lipitor as LDL was elevated at 89 compared to previous -she is aware if she does end up planning right knee replacement she will need a stress test priorUnMercy Health St. [facility]12-19-2022 NoteUT Cardiology Note [facility] Reason for follow up: 6 month follow chronic systolic heart failure HPI: Robyn Tai is a 67 y.o. year old with past medical history of heart failure with reduced ejection fraction which is now preserved with ef 55%, nonischemic cardiomyopathy, mild CAD, mild diastolic dysfunction, mitral regurgitation, hypertension. She is here for routine 6 month follow up. Her recent echo From 08/25/2020 shows improved EF >55% when compared to previous echo in 2019 with an EF of 30-35% when she was being cleared for knee arthroscopy and had complaints of chest pain, shortness of breath. She has been doing well since last visit, with no complaints of chest pain, shortness of breath, lower extremity edema, palpitations. She states she is looking in to try to get her right knee replaced within the next year. She is aware if she is to proceed we recommend a stress test prior to per her last visit note with Dr. Vallejo. Review of Systems Constitutional: Negative for fever and malaise/fatigue. Eyes: Negative for blurred vision. Cardiovascular: Negative for chest pain, dyspnea on exertion, leg swelling, near-syncope, orthopnea and palpitations. Respiratory: Negative for shortness of breath. Neurological: Negative for dizziness, headaches and light-headedness. All other systems reviewed and are negative. ---- Previous HPI Carlitos HAMPTON 10/2021 Ms. Tai is a 66 y/o F who presents to clinic as a 6 month f/u. She has a known hx of HFrEF, NICM (viral), mild CAD per 11/2019 cath, diastolic dysfunction, MR, HTN, anxiety. 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 -Mother dx'd with dementia - she has been living with her and her siblings, possibly will be admitting her to an ECF -Notes SILVEIRA while wearing mask -Denies any CP, SOB, dizziness/LH, syncope, LE edema, PND, orthopnea. Weight has been stable. -Of note...she was put on HCTZ in the past for kidney stones _ ECHO 08/25/20: EF >55%, grade I DD, mild LA dilatation, mild MR and mild TR, normal right sided pressures Echocardiogram 01/2020 Global left ventricular systolic function is low normal limits. EF is 50 to 55%. Normal right ventricular systolic function. Moderate diastolic dysfunction. Left ventricular hypertrophy. Mild mitral regurgitation. Normal right-sided pressures. Event monitor: Sinus rhythm with couplets, PVCs, trigeminal PVCs and multifocal PVCs. Heart rate average of 80 bpm PMH: Past Medical History: Diagnosis Date CHF (congestive heart failure) ([facility]) Coronary artery disease Diastolic dysfunction Heart valve disease Hypertension PSH: Past Surgical History: Procedure Laterality Date CARDIAC CATHETERIZATION SH: Social Determinants of Health Tobacco Use: Not on file Alcohol Use: Not on file Financial Resource Strain: Not on file Food Insecurity: Not on file Transportation Needs: Not on file Physical Activity: Not on file Stress: Not on file Social Connections: Not on file Intimate Partner Violence: Not on file Depression: Not on file Housing Stability: Not on file Allergies: No Known Allergies Weight: 72.6kg (160lb), was 159lb on last visit in 05/2022. Meds: Current Outpatient Medications on File Prior to Visit Medication Sig Dispense Refill aspirin 81 mg EC tablet Take 1 tablet every day by oral route. atorvastatin (Lipitor) 40 mg tablet TAKE 1 TABLET BY MOUTH EVERY DAY 90 tablet 2 carvedilol (Coreg) 6.25 mg tablet Take 6.25 mg by mouth in the morning and at bedtime. fenofibrate (Lofibra) 160 mg tablet Take 160 mg by mouth in the morning. hydroCHLOROthiazide (HYDRODiuril) 25 mg tablet Take 25 mg by mouth in the morning. lansoprazole (Prevacid) [address] capsule Take by mouth in the morning. lisinopril 10 mg tablet TAKE 1 TABLET BY MOUTH EVERY DAY 90 tablet 3 [DISCONTINUED] loratadine (Claritin) 10 mg tablet Take 10 mg by mouth in the morning. No current facility-administered medications on file prior to visit. Physical Exam: Constitutional General Appearance: well-nourished, well-developed, appears stated age Level of Distress: comfortable Psychiatric Mental Status: alert, normal affect Orientation: oriented to time, place, and person Insight: good judgement Eyes Lids and Conjunctivae: non-injected, no xanthelasma ENMT Ears: no lesions on external ear Nose: no lesions on external nose Oropharynx: no cyanosis, no pallor Neck Neck: supple, trachea midline Carotid Arteries: bilateral normal upstroke, no bruits Jugular Veins: normal jugular venous pressure Thyroid: not enlarged Lungs Respiratory Effort: unlabored Chest Exam: normal c (more content not included)...[facility]12-19-2022 NotePatient here for 6 mo follow up systolic heart failure, CAD, and palpitations. Had routine labs 2 weeks ago. Does sometimes get chest pain at rest, and sometimes with position changes. Review of Systems HENT: Positive for tinnitus. Cardiovascular: Positive for dyspnea on exertion. Respiratory: Positive for cough. Musculoskeletal: Positive for back pain and joint pain. All other systems reviewed and are negative.[facility] Evaluation noteNo [employer] Other History general Narrative - Reported* Type Description Date Surgical History Problem Title : past surgical history reviewed, Problem Description : past surgical history reviewed, Problem Comment : reviewed - no changes required, Problem Status : Active, Surgical History Problem Title : surg ical procedures, hx of, Problem Description : surgical procedures, hx of, Problem Comment : [facility] 1996 - dysmenorrhea - BSO and Appy B upper blepharoplasty Colonoscopy 2010 - hyperplastic polyp, Problem Status : Active, Surgical History 2: 06/2018 - Stepanic, Problem S tatus : Active, Surgical History 1: Problem Title : s urgical procedures, hx of, Problem Description : surgical procedures, hx of, Problem Comment : [facility] 1996 - dysmenorrhea - BSO and Appy B upper blepharoplasty Colonoscopy 2010 - hyperplastic polyp R knee arthroscopic surgery Surgical History 2: 06/2018, Problem Status : Act linnea, [facility] Other Summary Purpose Family History No Family History Records FoundNo Family History Records FoundNo Family History Records Found Advance Directives No Advanced Directives Records FoundNo Advanced Directives Records FoundNo Advanced Directives Records Found Additional Source Comments INFORMATION SOURCE (unrecogn ized section and content) DATE CREATED AUTHOR 03/29/2020 [facility] DATE CREATED AUTHOR AUTHOR'S ORGANIZ ATION 04/04/2023 [facility] DATE CREATED AUTHOR AUTHOR'S ORGANIZ ATION 11/17/2023 [facility] REASON FOR VISIT (unrecogniz ed section and content) UA-Frequency, BurningNo Info rmationNo InformationNo InformationUpdaterefillMammogram [facility] FOR RECORDS PERTAINING TO PATIENTS WHO ARE OR HAVE BEEN ENROLLED IN A CHEMICAL DEPENDENCY/SUBSTANCEABUSE PROGRAM, SOME INFORMATION MAY BE OMITTED. This clinical summary was aggregated from multiple sources. Caution should be exercised in using it in the provision of clinical care. This summary normalizes information from multiple sources, and as a consequence, information in this document may materially change the coding, format and clinical context of patient data. In addition, data may be omitted in some cases. CLINICAL DECISIONS SHOULD BE BASED ON THE PRIMARY CLINICAL RECORDS. [facility]. provides no warranty or guarantee of the accuracy or completeness of information in this document.
== END 2023-12-05 15:43 | disposition home or self-care (01) ==
LOC: LAB 15:42
PROVIDERS: PCP Family Medicine; Visit Provider Family Medicine
DX: N30.00 Acute cystitis without hematuria (principal)
CPT/HCPCS: 81003; 87086

== ENCOUNTER 2024-03-05 10:38 | Emergency (ER) | payer OTHER, BC, SELFPAY ==
[2024-03-05 10:43] VITALS: BP 135/69; PULSE 61; TEMP 36.6; O2SAT 97; BMI 29.3
--- NOTE | 2024-03-05 10:51 | PC.NURSE ---
AT WORK, PT WAS PICKING UP NEEDLE OFF THE FLOOR FROM A PATIENT ROOM. PRICKED R POINTER FINGER. KNOWN SOURCE. PT UNSURE IF SHE IS VACCINATED FOR HEPATITIS.
--- NOTE | 2024-03-05 12:15 | ED.GENADUL1 ---
HPI HPI - General Adult General Chief complaint: Needle Stick Stated complaint: FINGER STICK-[facility] Time Seen by Provider: 03/05/24 12:07 Source: patient Mode of arrival: walk-in Limitations: no limitations History of Present Illness HPI narrative: Patient here for evaluation of an accidental needlestick. 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 Actually there was a needle in it and she poked herself with her right index finger. She thinks she had a needlestick, accidental, approximately 10 years ago. She has never had hepatitis HIV previously. She is otherwise healthy. Routine laboratory protocol his blood work has already been done on her after she poked herself. Same has been done for the source up in room 230. We do not have any stat laboratory results back as of yet. She did clean her wound thoroughly. She is behind on her tetanus update so we will get her that updated. She is to follow-up with [facility]. Related Data Home Medications ?Medication ?Instructions ?Recorded ?Confirmed alprazolam 0.25 mg tablet 0.25 mg PO PRN 03/05/24 03/05/24 atorvastatin 40 mg tablet 40 mg PO .qhs 03/05/24 03/05/24 carvedilol 6.25 mg tablet 6.25 mg PO Q12H 03/05/24 03/05/24 fenofibrate 160 mg tablet 160 mg PO QDAY 03/05/24 03/05/24 hydrochlorothiazide 25 mg tablet 25 mg PO QDAY 03/05/24 03/05/24 lansoprazole 30 mg capsule,delayed 30 mg PO QDAY 03/05/24 03/05/24 release lisinopril 10 mg tablet 10 mg PO QDAY 03/05/24 03/05/24 loratadine 10 mg tablet 10 mg PO Q24H 03/05/24 03/05/24 Allergies Allergy/AdvReac Type Severity Reaction Status Date / Time No Known Drug Allergies Allergy Verified 03/05/24 10:55 Opioid HPI Opioid Management Most Recent Opioid Data: No Data to Display [facility] Medical History (Updated 03/05/24 @ 12:18 by Gerry Childs MD) HTN (hypertension) ?I10 - Essential (primary) hypertension (ICD-10) Exam Narrative Exam Narrative: Well-hydrated well-nourished pleasant vital signs are stable. Problem focused examination shows a fine needle PICC in the midline volar surface distal phalanx right index finger. No active bleeding no swelling no tenderness. Constitutional Vital Signs, click to edit/add: Last Vital Signs Temp 98 F 03/05/24 10:43 Pulse 61 03/05/24 10:43 Resp 14 03/05/24 10:43 BP 135/69 03/05/24 10:43 Pulse Ox 97 03/05/24 10:43 O2 Del Method Room Air 03/05/24 10:43 Course Vital Signs Vital signs: Vital Signs Temperature 98 F 03/05/24 10:43 Pulse Rate 61 03/05/24 10:43 Respiratory Rate 14 03/05/24 10:43 Blood Pressure 135/69 03/05/24 10:43 Pulse Oximetry 97 03/05/24 10:43 Oxygen Delivery Method Room Air 03/05/24 10:43 Temperature 98 F 03/05/24 10:43 Pulse Rate 61 03/05/24 10:43 Respiratory Rate 14 03/05/24 10:43 Blood Pressure 135/69 03/05/24 10:43 Pulse Oximetry 97 03/05/24 10:43 Oxygen Delivery Method Room Air 03/05/24 10:43 Discharge Plan Discharge Stand Alone Forms: Portal Instructions Chief Complaint: Needle Stick Clinical Impression: Needlestick injury accident Patient Disposition: Home, Self-Care Time of Disposition Decision: 12:17 Prescriptions / Home Meds: No Action lisinopril 10 mg tablet 10 mg PO QDAY lansoprazole 30 mg capsule,delayed release(DR/EC) 30 mg PO QDAY hydrochlorothiazide 25 mg tablet 25 mg PO QDAY fenofibrate 160 mg tablet 160 mg PO QDAY carvedilol 6.25 mg tablet 6.25 mg PO Q12H atorvastatin 40 mg tablet 40 mg PO .qhs loratadine 10 mg tablet 10 mg PO Q24H alprazolam 0.25 mg tablet 0.25 mg PO PRN Print Language: Peruvian Additional Instructions: Follow-up with [facility] for follow up recommendations and treatment as necessary Referrals: Florencia Tipton MD [Primary Care Provider] - 1 week
--- NOTE | 2024-03-05 12:23 | ED_ITS ---
HPI HPI - General Adult General Chief complaint: Needle Stick Stated complaint: FINGER STICK-C [facility] Time Seen by Provider: 03/05/24 12:07 Source: patient Mode of arrival: walk-in Limitations: no limitations Related Data Home Medications ?Medication ?Instructions ?Recorded ?Confirmed alprazolam 0.25 mg tablet 0.25 mg PO PRN 03/05/24 03/05/24 atorvastatin 40 mg tablet 40 mg PO .qhs 03/05/24 03/05/24 carvedilol 6.25 mg tablet 6.25 mg PO Q12H 03/05/24 03/05/24 fenofibrate 160 mg tablet 160 mg PO QDAY 03/05/24 03/05/24 hydrochlorothiazide 25 mg tablet 25 mg PO QDAY 03/05/24 03/05/24 lansoprazole 30 mg capsule,delayed 30 mg PO QDAY 03/05/24 03/05/24 release lisinopril 10 mg tablet 10 mg PO QDAY 03/05/24 03/05/24 loratadine 10 mg tablet 10 mg PO Q24H 03/05/24 03/05/24 Allergies Allergy/AdvReac Type Severity Reaction Status Date / Time No Known Drug Allergies Allergy Verified 03/05/24 10:55 Opioid HPI Opioid Management Most Recent Opioid Data: No Data to Display [facility] Medical History (Updated 03/05/24 @ 12:18 by Gerry Childs MD) HTN (hypertension) ?I10 - Essential (primary) hypertension (ICD-10) Exam Constitutional Vital Signs, click to edit/add: Last Vital Signs Temp 98 F 03/05/24 10:43 Pulse 61 03/05/24 10:43 Resp 14 03/05/24 10:43 BP 135/69 03/05/24 10:43 Pulse Ox 97 03/05/24 10:43 O2 Del Method Room Air 03/05/24 10:43 Course Vital Signs Vital signs: Vital Signs Temperature 98 F 03/05/24 10:43 Pulse Rate 61 03/05/24 10:43 Respiratory Rate 14 03/05/24 10:43 Blood Pressure 135/69 03/05/24 10:43 Pulse Oximetry 97 03/05/24 10:43 Oxygen Delivery Method Room Air 03/05/24 10:43 Temperature 98 F 03/05/24 10:43 Pulse Rate 61 03/05/24 10:43 Respiratory Rate 14 03/05/24 10:43 Blood Pressure 135/69 03/05/24 10:43 Pulse Oximetry 97 03/05/24 10:43 Oxygen Delivery Method Room Air 03/05/24 10:43 Discharge Plan Discharge Stand Alone Forms: Portal Instructions Chief Complaint: Needle Stick Clinical Impression: Needlestick injury accident Patient Disposition: Home, Self-Care Time of Disposition Decision: 12:17 Prescriptions / Home Meds: No Action lisinopril 10 mg tablet 10 mg PO QDAY lansoprazole 30 mg capsule,delayed release(DR/EC) 30 mg PO QDAY hydrochlorothiazide 25 mg tablet 25 mg PO QDAY fenofibrate 160 mg tablet 160 mg PO QDAY carvedilol 6.25 mg tablet 6.25 mg PO Q12H atorvastatin 40 mg tablet 40 mg PO .qhs loratadine 10 mg tablet 10 mg PO Q24H alprazolam 0.25 mg tablet 0.25 mg PO PRN Print Language: Korean Additional Instructions: Follow-up with [facility] for follow up recommendations and treatment as necessary Referrals: Florencia Tipton MD [Primary Care Provider] - 1 week
[2024-03-05] MEDS: ADACEL DIPH,PERTUSS(ACELL),TET VAC/PF 0.5 ML ADULT SYRINGE IM (12:30)
[2024-03-06 06:09] LABS: HCV Antibody Non Reactive (Non Reactive); HIV Ab/p24 Ag Screen Non Reactive (Non Reactive); Hepatitis B Surf Ab Quant 16.5 mIU/mL (Immunity>9.9)
[2024-03-06 11:09] LABS: Rapid Plasma Reagin, Quant Non Reactive titer (NonRea<1:1)
== END 2024-03-05 12:39 | disposition home or self-care (01) ==
PROVIDERS: Emergency Provider Emergency Medicine Emergency Medical Services; PCP Family Medicine
DX: Z77.21 Contact with and (suspected) exposure to potentially hazardous body fluids (principal); Z23 Encounter for immunization
CPT/HCPCS: 36415; 86317; 86592; 86803; 87389; 90471; 90715; 99283

== ENCOUNTER 2024-07-08 07:45 | Outpatient (OUT) | payer BC, SELFPAY ==
--- NOTE | 2024-07-08 | PCN_ITS ---
CARDIAC STRESS TEST Requesting Physician: Procedure Date: 07/08/2024 This was a Lexiscan Stress Test with myocardial perfusion imaging, performed at the [facility] on 07/08/2024. Informed consent was obtained. An intravenous line was secured. Baseline ECG and vital signs were obtained. Lexiscan 0.4 mg was administered intravenously, followed by administration of Cardiolite. The patient then went on to obtain myocardial perfusion imaging. Baseline heart rate was 72 BPM and maximum heart rate was 92 BPM. Resting blood pressure was 122/68 and maximum blood pressure was 142/68. Resting ECG showed sinus rhythm with possible old anteroseptal myocardial infarction and occasional PVCs. ECG following infusion of Lexiscan showed evidence of sinus rhythm with occasional PVCs. No ischemic ST changes were seen. SUMMARY OF THE FINDINGS: 1. No evidence of ischemic ECG changes seen following infusion of Lexiscan. 2. Myocardial perfusion imaging will be reportedly separately. MTDD
--- OUTSIDE RECORDS SUMMARY | 2024-07-08 07:47 | XMS_ITS | CCD ---
Author Organization [facility] Inform ion [facility] Care Team Providers Care Research Mechanic Name Role Phone ELTAHAWY, EHAB A Admitting Unavailable ELSUZAN EHAB A Attending Unavailable FLORENCIA WOLF Primary [...] ASHTON Admitting Unavailable FRAN ASHTON Attending Unavailable WOLF, DR FLORENCIA [place] [facility] Unavailable PREETHI, [...] NICK Attending Unavailable GABRIELE ESTEBAN Attending Unavailable Allergies Allergy Classification Reported Allergen(s) Allergy Type Date of Onset Reaction(s) Facility (2 sources) patient allergy list reviewed by nurse or physicia Propensity to adverse reactions 4 Comment:Done [place] [facility] [place] Other (2 sources) Allergies Reconciled Propensity to adverse reactions Unknown Green [facility] [place] Other Medications Current Medications Medication Drug Class(es) Dates Sig (Normalized) Sig (Original) ALPRAZolam 0.25 mg oral tablet (4 sources) Benzodiazepine Start: 11-18-20 take 1 tablet by mouth twice daily as needed ALPRAZolam 0.25 MG 1 tablet Orally Twice a day prn for 30 days Nov, Active azithromycin 250 mg oral tablet (4 sources) Macrolide Antimicrobial Start: 11-18-20 Azithromycin 250 MG as directed Orally 2 tabs po today, then 1 tab daily x 4 more days for 5 Nov, Active carvedilol 6.25 mg oral tablet (4 sources) alpha-Adrenergic Darius, beta-Adrenergic Darius take 1 tablet by mouth every twelve hours Carvedilol 6.25 MG 1 tablet twice a day Active ciprofloxacin 250 mg oral tablet (3 sources) Quinolone Antimicrobial Start: 06-14-20 take 1 tablet by mouth every twelve hours Cipro 250 MG 1 tablet Orally every 12 hrs for 7 days Jun, Active fenofibrate 160 mg oral tablet (11 sources) Peroxisome Proliferator Receptor alpha Agonist take 1 tablet by mouth once daily Fenofibrate 160 MG TAKE 1 TABLET BY MOUTH EVERY DAY for 90 Active hydroCHLOROthiazide 25 mg oral tablet (11 sources) Thiazide Diuretic take 1 tablet by mouth once daily hydroCHLOROthiazide 25 MG TAKE 1 TABLET BY MOUTH EVERY DAY for 90 Active lansoprazole 30 mg delayed release oral capsule (11 sources) Proton Pump Inhibitor take 1 capsule by mouth once daily Lansoprazole 30 MG TAKE 1 CAPSULE BY MOUTH EVERY DAY for 90 Active lisinopril 10 mg oral tablet (4 sources) Angiotensin Converting Enzyme Inhibitor Lisinopril 10 MG 1tablet once a day Active loratadine 10 mg oral tablet (11 sources) take 1 tablet by mouth once [...] Problem Date Documented Date Episodic/Chronic Anxiety disorders (12 sources) Anxiety disorder; Translations: [Other specified anxiety disorders] Chronic Congestive heart failure; nonhypertensive (2 sources) Chronic systolic (congestive) heart failure; Translations: [Chronic systolic (congestive) heart failure] Onset: 11-19-2022 Chronic Coronary atherosclerosis and other heart disease (2 sources) Atherosclerotic heart disease of [place] coronary artery without angina pectoris; Translations: [Atherosclerotic heart disease of [place] coronary artery without angina pectoris] Onset: 11-19-2022 Chronic Disorders of lipid metabolism (18 sources) Familial hypercholesterolemia; Translations: [Familial hypercholesterolemia] Onset: 04-08-2014 Chronic Esophageal disorders (11 sources) Esophageal reflux finding; Translations: [Esophageal reflux] Onset: 04-08-2014 Chronic Esophageal disorders (1 source) Esophageal disorders; Translations: [Gastro-esophageal reflux disease with esophagitis, without bleeding] Essential hypertension (14 sources) Essential hypertension; Translations: [Essential (primary) hypertension] Onset: 04-08-2014 Chronic Genitourinary symptoms and ill-defined conditions (2 sources) Urgency of urination Episodic Heart valve disorders (2 sources) Nonrheumatic mitral (valve) insufficiency; Translations: [Nonrheumatic mitral (valve) insufficiency] Onset: 11-19-2022 Chronic Immunizations and screening for infectious disease (4 sources) Encounter for immunization; Translations: [ENCOUNTER FOR IMMUNIZATION] Onset: 03-28-2023 Episodic Osteoarthritis (6 sources) Idiopathic osteoarthritis; 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, right knee] Chronic Other and ill-defined heart disease (2 sources) Other ill-defined heart diseases; Translations: [Other ill-defined heart diseases] Onset: 11-19-2022 Chronic Other lower respiratory disease (2 sources) Other forms of dyspnea; Translations: [Other forms of dyspnea] Onset: 06-17-2024 Episodic Other nutritional; endocrine; and metabolic disorders (12 sources) Body mass index 25-29 - overweight; Translations: [Body mass index (BMI) 29.0-29.9, adult] Onset: 10-17-2017 Episodic Other screening for suspected conditions (not mental disorders or infectious disease) (15 sources) Other specified abnormal findings of blood chemistry; Translations: [Encounter for screening mammogram for malignant neoplasm of breast] Onset: 09-10-2022 Episodic Other upper respiratory infections (8 sources) Acute sinusitis; Translations: [Acute sinusitis, unspecified] Onset: 02-01-2014 Episodic [place]-; endo-; and myocarditis; cardiomyopathy (except that caused by tuberculosis or sexually transmitted disease) (6 sources) Cardiomyopathy associated with another disorder; Translations: [Other cardiomyopathies] Chronic Residual codes; unclassified (6 sources) Tobacco user; Translations: [Tobacco use] Episodic Urinary tract infections (5 sources) Acute cystitis with hematuria; Translations: [Acute cystitis without hematuria] Episodic Past or Other Problems Problem Classification Problem Date Documented Date Episodic/Chronic Acute bronchitis (6 sources) Acute bronchitis; Translations: [Acute bronchitis, unspecified] Onset: 02-01-2014 Episodic Blindness and vision defects (6 sources) Visual disturbance; Translations: [Unspecified visual disturbance] Onset: 09-08-2018 Episodic Intestinal infection (6 sources) Viral enteritis; Translations: [Intestinal infection due to other organism, NEC] Onset: 07-26-2017 Episodic Other non-traumatic joint disorders (6 sources) Arthralgia of the lower leg; Translations: [Pain in joint, lower leg] Onset: 06-05-2018 Episodic Residual codes; unclassified (1 source) Family history of malignant neoplasm of breast; Translations: [FAMILY HX MALIG NEOPLASM OF BREAST] Onset: 09-13-2022 Episodic Residual codes; unclassified (1 source) Family history of malignant neoplasm of other organs or systems; Translations: [FAM HX MALIG NEOPLASM OTH ORGN/SYS] Onset: 09-13-2022 Episodic Residual codes; unclassified (6 sources) Postmenopausal state; Translations: [Asymptomatic menopausal state] Onset: 10-17-2017 Episodic Residual codes; unclassified (6 sources) Family history of breast cancer; Translations: [Family history of malignant neoplasm of breast] Onset: 04-08-2014 Episodic Residual codes; unclassified (6 sources) Family history of diabetes mellitus; Translations: [Family history of diabetes mellitus] Onset: 04-08-2014 Episodic Unclassified (6 sources) Blisters with epidermal loss due to burn (second degree) of single digit [finger (nail)] other than thumb; Translations: [Blisters with epidermal loss due to burn (second degree) of single digit [finger (nail)] other than thumb] Onset: 02-01-2015 Results Test Name Value Interpretation Reference Range Facility Office Visiton 06-17-2024 Follow-up visit [id number] Robyn Tai 1955 F Date Provider Department Center 06/17/2024 166-APRKMENDOZA MENJIVAR MARCOS [facility] No family history on file Level of Service:04559 DC OFFICE/OUTPATIENT ESTABLISHED MOD MDM 30 MIN Reason for Visit and Comments: Follow-up [015788] - 6 month follow up Normal [facility] Office Visiton 11-15-2023 Follow-up visit [id number] Robyn Tai 1955 F Date Provider Department Center 11/15/2023 120-GABRIELE ESTEBAN M[facility] No family history on file Level of Service:13119 DC OFFICE/OUTPATIENT ESTABLISHED MOD MDM 30-39 MIN Normal [facility] Orders Onlyon 10-22-2023 Orders Only [id number] Robyn Tai 1955 Date Provider Department Center 10/22/2023 FRAN REYES [facility]. No family history on file Normal [facility] US THYROIDon 11-20-2022 US THYROID EXAMINATION: US [...] cm, fine needle aspiration. Electronically authenticated by: HORACIO ORO Date: 2022-11-19 23:59 Normal [facility] CBC AUTO DIFFon 11-09-2022 BASO # 0.0 103/ul Normal 0.0-0.1 [facility] Comment on above: Performed By: #### C BC #### [facility] [address] [address] [address] Mike Ball Basophils/100 WBC (Bld) 0.2 % Normal 0.2-2.0 [facility] Comment on above: Performed By: #### C BC #### [facility] [address] [address] [address] Mike Ball EO # 0.3 103/ul Normal 0.0-0.7 [facility] Comment on above: Performed By: #### C BC #### [facility] [address] [place] [address] Dr. Mike Ball Eosinophils/100 WBC (Bld) 4.2 % Normal 0.9-7.0 [facility] Comment on above: Performed By: #### C BC #### [facility] [address] [address] [address] Mike Ball Erythrocyte distribution width (RBC) [Ratio] 12.5 % Normal 11.0-15.0 [facility] Comment on above: Performed By: #### C BC #### [facility] [address] [place] [address] Dr. Mike Ball Hematocrit (Bld) [Volume fraction] 43.2 % Normal 36.0-48.0 [facility] Comment on above: Performed By: #### C BC #### [facility] [address] [address] [address] Mike Ball Hemoglobin (Bld) [Mass/Vol] 14.6 g/dL Normal 12.0-16.0 [facility] Comment on above: Performed By: #### C BC #### [facility] [address] [place] [address] Dr. Mike Ball IG # 0.01 10e3/ul Normal 0.00-0.03 [facility] Comment on above: Performed By: #### C BC #### [facility] [address] [place] [address] Dr. Mike Ball IG % 0.1 % Normal 0.0-0.5 [facility] Comment on above: Performed By: #### C BC #### [facility] [address] [place] [address] Dr. Mike Ball LYMPH # 2.4 103/ul Normal 1.2-3.8 [facility] Comment on above: Performed By: #### C BC #### [facility] [address] [place] [address] Dr. Mike Ball Lymphocytes/100 WBC (Bld) 30.0 % Normal 20.5-60.0 [facility] Comment on above: Performed By: #### C BC #### [facility] [address] [place] [address] Dr. Mike Ball MANUAL DIFF REQ NO Normal [facility] Comment on above: Performed By: #### C BC #### [facility] [address] [place] [address] Dr. Mike Ball MCH (RBC) [Entitic mass] 30.4 pg Normal 26.7-34.0 [facility] Comment on above: Performed By: #### C BC #### [facility] [address] [place] [address] Dr. Mike Ball MCHC (RBC) [Mass/Vol] 33.8 g/dL Normal 29.9-35.2 [facility] Comment on above: Performed By: #### C BC #### [facility] [address] [place] [address] Dr. Mike Ball MCV (RBC) [Entitic vol] 89.8 fL Normal 81.0-99.0 [facility] Comment on above: Performed By: #### C BC #### [facility] [address] [place] [address] Dr. Mike Ball MONO # 0.7 103/ul Normal 0.3-0.8 [facility] Comment on above: Performed By: #### C BC #### [facility] [address] [place] [address] Dr. Mike Ball Monocytes/100 WBC (Bld) 8.6 % Normal 1.7-12.0 [facility] Comment on above: Performed By: #### C BC #### [facility] [address] [place] [address] Dr. Mike Ball NEUT # 4.6 103/ul Normal 1.4-6.5 [facility] Comment on above: Performed By: #### C BC #### [facility] [address] [place] [address] Dr. Mike Ball Neutrophils/100 WBC (Bld) 56.9 % Normal 43.0-75.0 [facility] Comment on above: Performed By: #### C BC #### [facility] [address] [place] [address] Dr. Mike Ball Platelet mean volume (Bld) [Entitic vol] 10.7 fL Normal 9.5-13.5 [facility] Comment on above: Performed By: #### C BC #### [facility] [address] [place] [address] Dr. Mike Ball PLT 276 103/ul Normal 150-450 [facility] Comment on above: Performed By: #### C BC #### [facility] [address] [place] [address] Dr. Mike Ball RBC 4.81 106/ul Normal 4.20-5.40 [facility] Comment on above: Performed By: #### C BC #### [facility] [address] [place] [address] Dr. Mike Ball WBC 8.1 103/ul Normal 4.0-11.0 [facility] Comment on above: Performed By: #### C BC #### [facility] [address] [place] [address] Dr. Mike Ball GLYCOHEMOGLOBIN A1Con 2021 ADA RECOMMENDATION SEE BELOW Normal [facility] Comment on above: Result Comment: ADA RECOMMENDED LIMIT 4.0 - 6.0 ADA THERAPEUTIC TARGET < 7.0 ACTION SUGGESTED > 7.0 Performed By: #### A 1C #### [facility] [address] [place] [address] Dr. Mike Ball Glucose [Mass/Vol] 128 mg/dL Normal [facility] Comment on above: Performed By: #### A 1C #### [facility] [address] [place] [address] Dr. Mike Ball HbA1c (Bld) [Mass fraction] 6.1 % Normal 4.5-6.2 [facility] Comment on above: Performed By: #### A 1C #### [facility] [address] [place] [address] Dr. Mike Ball LIPID PROFILEon 11-09-2022 CHOL-HDL RATIO NORM SEE BELOW Normal [facility] Comment on above: Result Comment: 3.3 - 4.4 LOW RISK 4.4 - 7.1 AVERAGE RISK 7.1 - 11.0 MODERATE RISK >11.0 HIGH RISK Performed By: #### C MP, LIPID, TSH #### [facility] [address] [place] [address] Dr. Mike Ball Cholesterol [Mass/Vol] 150 mg/dL Normal <=200 [facility] Comment on above: Performed By: #### C MP, LIPID, TSH #### [facility] [address] [place] [address] Dr. Mike Ball Cholesterol in HDL [Mass/Vol] 46 mg/dL Normal 40-60 [facility] Comment on above: Performed By: #### C MP, LIPID, TSH #### [facility] [address] [place] [address] Dr. Mike Ball Cholesterol in LDL [Mass/Vol] 89.6 mg/dL Normal [facility] Comment on above: Performed By: #### C MP, LIPID, TSH #### [facility] [address] [place] [address] Dr. Mike Ball Cholesterol.total/Ch olesterol in HDL [Mass ratio] 3.3 {ratio} Normal [facility] Comment on above: Performed By: #### C MP, LIPID, TSH #### [facility] [address] [place] [address] Dr. Mike Ball HDL NORMAL > or = 60 mg/dl - LOW CARDIOVASCULAR RISK <40 mg/dl - HIGH CARDIOVASCULAR RISK Normal [facility] Comment on above: Performed By: #### C MP, LIPID, TSH #### [facility] [address] [address] [address] Mike Ball LDL CALC NORMAL SEE BELOW Normal [facility] Comment on above: Result Comment: <100 mg/dl OPTIMAL 100 - 129 mg/dl NEAR OR ABOVE OPTIMAL 130 - 159 mg/dl BORDERLINE HIGH 160 - 189 mg/dl HIGH >190 mg/dl VERY HIGH Performed By: #### C MP, LIPID, TSH #### [facility] [address] [address] [address] Mike Ball Triglyceride [Mass/Vol] 72 mg/dL Normal <=150 [facility] Comment on above: Performed By: #### C MP, LIPID, TSH #### [facility] [address] [address] [address] Mike Ball VLDL CALC 14.4 mg/dL Normal [facility] Comment on above: Performed By: #### C MP, LIPID, TSH #### [facility] [address] [address] [address] Mike Ball PROF 14(COMP METB)on 022 Albumin [Mass/Vol] 4.1 g/dL Normal 3.4-5.0 [facility] Comment on above: Performed By: #### C MP, LIPID, TSH #### [facility] [address] [address] [address] Mike Ball Albumin/Globulin [Mass ratio] 1.4 {ratio} Normal [facility] Comment on above: Performed By: #### C MP, LIPID, TSH #### [facility] [address] [address] [address] Mike Ball ALP [Catalytic activity/Vol] 63 U/L Normal 46-116 [facility] Comment on above: Performed By: #### C MP, LIPID, TSH #### [facility] [address] [address] [address] Mike Ball ALT [Catalytic activity/Vol] 22 U/L Normal 14-59 [facility] Comment on above: Performed By: #### C MP, LIPID, TSH #### [facility] [address] [address] [address] Mike Ball Anion gap [Moles/Vol] 9.0 mmol/L Normal [facility] Comment on above: Performed By: #### C MP, LIPID, TSH #### [facility] [address] [address] [address] Mike Ball AST [Catalytic activity/Vol] 18 U/L Normal 15-37 [facility] Comment on above: Performed By: #### C MP, LIPID, TSH #### [facility] [address] [address] [address] Mike Ball Bilirubin [Mass/Vol] 0.5 mg/dL Normal 0.2-1.0 [facility] Comment on above: Performed By: #### C MP, LIPID, TSH #### [facility] [address] [place] [address] Dr. Mike Ball Calcium [Mass/Vol] 9.2 mg/dL Normal 8.5-10.1 [facility] Comment on above: Performed By: #### C MP, LIPID, TSH #### [facility] [address] [place] [address] Dr. Mike Ball Chloride [Moles/Vol] 102 mmol/L Normal 98-107 [facility] Comment on above: Performed By: #### C MP, LIPID, TSH #### [facility] [address] [place] [address] Dr. Mike Ball CO2 [Moles/Vol] 33.6 mmol/L Critically high 21.0-32.0 [facility] Comment on above: Performed By: #### C MP, LIPID, TSH #### [facility] [address] [place] [address] Dr. Mike Ball Creatinine [Mass/Vol] 0.71 mg/dL Normal 0.55-1.02 [facility] Comment on above: Performed By: #### C MP, LIPID, TSH #### [facility] [address] [place] [address] Dr. Mike Ball EGFR-AF [place] >60 Normal >=60 [facility] Comment on above: Performed By: #### C MP, LIPID, TSH #### [facility] [address] [place] [address] Dr. Mike Ball EGFR-NON AF [place] >60 Normal >=60 [facility] Comment on above: Performed By: #### C MP, LIPID, TSH #### [facility] [address] [address] [address] Mike Ball Globulin (S) [Mass/Vol] 2.9 g/dL Normal [facility] Comment on above: Performed By: #### C MP, LIPID, TSH #### [facility] [address] [place] [address] Dr. Mike Ball Glucose [Mass/Vol] 120 mg/dL Critically high 74-106 [facility] Comment on above: Performed By: #### C MP, LIPID, TSH #### [facility] [address] [place] [address] Dr. Mike Ball Potassium [Moles/Vol] 3.6 mmol/L Normal 3.5-5.1 [facility] Comment on above: Performed By: #### C MP, LIPID, TSH #### [facility] [address] [place] [address] Dr. Mike Ball Protein [Mass/Vol] 7.0 g/dL Normal 6.4-8.2 [facility] Comment on above: Performed By: #### C MP, LIPID, TSH #### [facility] [address] [place] [address] Dr. Mike Ball Sodium [Moles/Vol] 141 mmol/L Normal 136-145 [facility] Comment on above: Performed By: #### C MP, LIPID, TSH #### [facility] [address] [place] [address] Dr. Mike Ball Urea nitrogen [Mass/Vol] 21.0 mg/dL Critically high 7.0-18.0 [facility] Comment on above: Performed By: #### C MP, LIPID, TSH #### [facility] [address] [place] [address] Dr. Mike Ball Urea nitrogen/Creatinine [Mass ratio] 29.6 mg/mg Normal [facility] Comment on above: Performed By: #### C MP, LIPID, TSH #### [facility] [address] [address] [address] Mike Ball TSHon 11-09-2022 TSH 0.294 uIU/mL Critically low 0.358-3.740 [facility] Comment on above: Performed By: #### C MP, LIPID, TSH #### [facility] [address] [address] [address] Mike Ball MG MAMM SCREEN 3D PETAR CADon 09-10-2022 MG MAMM SCREEN 3D PETAR CAD Patient: ROBYN TAI Exam Date: 09/10/2022 : 1955 Gender:F Ordering : DR FLORENCIA WOLF M.D. Admission #: [id number] Family : Order #: [id number] CLICK HERE TO VIEW EXAM RADIOLOGY REPORT [...] skin cancer at age 72. LOCATION: [facility] BREAST COMPOSITION: Heterogeneously dense,which may obscure small [...] MD on 09/10/2022 at 11:53 Normal [facility] Cardiovascular Lab Reporton 11-06-2019 Cardiovascular Lab Report [facility] Patient Name: [facility] Robyn He MR #: [id number] Department of Physician: Louis Miranda M.D. Division of Service Date: 11/05/2019 Cardiology Birthdate: 1955 Adult Cardiovascular Room #: [address] [place] [id number] Cardiovascular Laboratory Report FINAL IMPRESSIONS: 1. Mild coronary artery disease. 2. Moderately reduced global left ventricular systolic function. 3. [id number] mitral regurgitation. 4. Mildly elevated right-sided heart [...] asymptomatic. 5. Follow up with Dr. Schilling/Dr. Patterson in the [facility]. 6. Follow up with Dr. Florencia oWlf as scheduled. PROCEDURES: Right heart catheterization, bilateral selective coronary angiography, left heart catheterization, left ventriculography, limited femoral angiography, placement of a 6-[place] MynxGrip closure device. METHODS: After risks, benefits, and alternatives were explained, written informed consent was obtained. The patient was prepped and draped in the usual sterile fashion over the right groin. Using 1% lidocaine solution, local infiltration anesthesia was achieved. Using a modified Seldinger technique, micropuncture kit, access to the right common femoral vein and artery was obtained. A 6-[place] 11 cm sheath was placed in each. Baseline femoral angiography was performed via the inner cannula of a micropuncture kit prior to up sizing to a 6-[place] sheath. Right heart catheterization was performed using [...] was elected to conclude the procedure. A 6-[place] MynxGrip closure device was deployed per protocol [...] are outlined above. Electronically Signed by: Benitez Patterson M.D. 11/12/2019 03:17 P Benitez Patterson M.D. Date Dict: 11/05/2019/01:53 PLois Patterson M.D. Date Trans: 11/06/2019 06:49 A/evelino [id number] cc: Florencia Wolf M.D. [address] [facility] [address] Girish Schilling M.D. [address] [id number] Normal [facility] BASIC METABOLIC PANELon 12-0 Calcium [Mass/Vol] 7.4 mg/dL Low 8.6-10.3 [facility] Comment on above: Performed By: #### 0 0071 #### [facility] [address] [place] [address], [place] Chloride [Moles/Vol] 110 mmol/L High 98-107 [facility] Comment on above: Performed By: #### 0 0071 #### [facility] [address] [place] [address], [place] CO2 [Moles/Vol] 24 mmol/L Normal 21-31 [facility] Comment on above: Performed By: #### 0 0071 #### [facility] [address] [place] [address], [place] Creatinine [Mass/Vol] 0.50 mg/dL Low 0.60-1.20 [facility] Comment on above: Performed By: #### 0 0071 #### [facility] [address] [place] [address], [place] GFR/1.73 sq M predicted among blacks MDRD (S/P/Bld) [Vol rate/Area] mL/min/{1.73_m2} Normal >60 [facility] Comment on above: Performed By: #### 0 0071 #### [facility] [address] [place] [address], [place] GFR/1.73 sq M predicted among non-blacks MDRD (S/P/Bld) [Vol rate/Area] mL/min/{1.73_m2} Normal >60 [facility] Comment on above: Performed By: #### 0 0071 #### [facility] [address] [place] [address], [place] Glucose [Mass/Vol] 75 mg/dL Normal 70-100 [facility] Comment on above: Performed By: #### 0 [id number] #### [facility] [address] [place] [address], [place] Potassium [Moles/Vol] 2.7 mmol/L Low 3.5-5.1 The [facility] Comment on above: Performed By: #### [id number] #### [facility] [address] [place] [address], [place] Sodium [Moles/Vol] 141 mmol/L Normal 136-145 The [facility] Comment on above: Performed By: #### [id number] #### [facility] [address] [place] [address], [place] Urea nitrogen [Mass/Vol] 16 mg/dL Normal 7-25 The [facility] Comment on above: Performed By: #### [id number] #### [facility] [address] [place] [address], [place] Vital Signs Date Time Vital Sign Value Performing Clinician Facility 12-16-2023 16:05-0500 Body height 157.48 cm Florencia Wolf Other [facility] 11-18-2023 14:00-0500 Body height 157.48 cm Florencia Wolf Other [facility] Other 11-18-2023 14:00-0500 Body mass index (BMI) [Ratio] 28.82 kg/m2 Florencia Wolf Other [facility] Other 11-18-2023 14:00-0500 Body temperature 96.8 [degF] Florencia Wolf Other [facility] Other 11-18-2023 14:00-0500 Body weight 71.49 kg Florencia Wolf Other [facility] Other 11-18-2023 14:00-0500 Diastolic blood pressure 72 mm[Hg] Florencia Wolf Other [facility] Other 11-18-2023 14:00-0500 Systolic blood pressure 130 mm[Hg] Florencia Wolf Other [facility] Other Encounters Encounter Date Encounter Type Care Provider Facility Start: 06-17-2024 End: 06[facility]17[facility]: 12-16-2023 End: 12-16-2023 ambulatory Florencia Wolf Other [facility] Start: 12-16-2023 Telephone encounter Florencia Wolf [facility] Start: 11-28-2023 End: 11-28-2023 ambulatory Florencia Wolf Other [facility] Other Start: 11-28-2023 Telephone encounter Florencia Wolf [facility] Start: 11-18-2023 End: 11-18-2023 ambulatory Florencia Wolf Other [facility] Other Start: 11-18-2023 Encounter for genera l adult medical examination without abnormal findings Florencia Wolf [facility] Start: 11-18-2023 Periodic preventive med est patient 65yrs& older Florencia Wolf [facility] Start: 11-15-2023 End: 11-15-2023 ambulatory GABRIELE ESTEBAN [facility] Start: 09-11-2023 End: 09-11-2023 ambulatory Florencia Wolf Other [facility] Start: 09-11-2023 Telephone encounter Florencia Wolf [facility] Start: 07-10-2023 End: 07-10-2023 ambulatory Boo Walker Other [facility] Other Start: 07-10-2023 Telephone encounter Boo Walker [facility] Start: 06-18-2023 End: 06-18-2023 ambulatory Boo Walker Other [facility] Other Start: 06-18-2023 Telephone encounter Boo Walker [facility] Start: 06-14-2023 End: 06-14-2023 ambulatory Boo Walker Other [facility] Other Start: 06-14-2023 Telephone encounter Boo Walker [facility] Start: 06-07-2023 End: 06-07-2023 ambulatory Florencia Wolf Other [facility] Other Start: 06-07-2023 Nursing evaluation o f patient and report Florencia Wolf [facility] Start: 03-28-2023 End: 03-29-[address] BOO WALKER Facility:[facility] Start: 12-12-2022 ambulatory FRAN ASHTON Facility:[facility] Start: 11-19-2022 End: 11-20-[address] HORACIO ORO Facility:[facility] Start: 11-13-2022 Adult health examination Boo Walker Other [facility] Start: 11-12-2022 Encounter for genera l adult medical examination without abnormal findings DR FLORENCIA WOLF [facility] Start: 11-09-2022 End: 11-10-[address] FLORENCIA WOLF Facility:[facility] Start: 11-09-2022 End: 11-10-2022 Encounter for general adult medical examination without abnormal findings DR FLOERNCIA WOLF Facility:[facility] Start: 10-05-2022 End: 10-06-[address] LILIYA PONCE . Facility:[facility] Start: 09-10-2022 End: 09-11-[address] FLORENCIA WOLF Facility: Start: 11-05-2019 End: 11-06-2019 Patient encounter procedure EHAB Neri REMYGRISELDAARSALANLeatha Facility:[facility] Start: 10-06-2019 Problem, abnormal examination Boo Walker Other [facility] Other Procedures Date Procedure Procedure Detail Performing Clinician Start: 04-08-2014 General examination of patient Boo Walker Other Screening for malign ant neoplasm of breast Boo Walker Other Immunizations Immunization Date Immunization Notes Care Provider Fa reagan 03-25-2023 Shingrix 50 MCG/0.5M L; Translations: [Shingrix 50 MCG/0.5ML] Florencia Wolf Other [facility] Other Payers Date Payer Category Payer Unknown [id number] 2019 Unknown [id number] 1957 Self-pay [id number] 1955 Unknown [id number] [id number] 1955 Unknown [id number] 2.16.84 [id number] 1955 Unknown [id number] 2.16.84 [id number] 1955 Unknown [id number] 2.16.84 [id number] 1955 Unknown [id number] 2.16.84 [id number] 1955 Unknown [id number] 2.16.84 [id number] Unknown [id number] Unknown [id number] 2.16.84 [id number] Social History Date Type Detail Facility Sex Assigned At [facility] Other Clinical Notes 06-07-2023 to 06-17-2024 Note Date & Type Note Facility 06-17-2024 Note Cardiovascular [facility] SUBJECTIVE Chief Complaint Patient presents with Follow-up 6 month follow up Robyn Tai is a 68 y.o. female here for follow-up. HPI PMHx of HFrEF, NICM (viral), mild CAD per 11/2019 cath, diastolic dysfunction, MR, HTN, anxiety. 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 She has intermittent dizziness, warmer humid weather makes it worse. She stays active at her job, no other exercise regimen. She denies c/o CP, orthopnea, PND, LE edema, palpitations. Patient Active Problem List Diagnosis Coronary atherosclerosis Diastolic dysfunction Essential hypertension Generalized anxiety disorder Mitral valve regurgitation Systolic heart failure (CMS/HCC) Past Medical History: Diagnosis Date CHF (congestive heart failure) (CMS/HCC) Coronary artery disease Diastolic dysfunction Heart valve disease Hypertension No family history on file. Social History Tobacco Use Smoking status: Every Day Types: Cigarettes Smokeless tobacco: Never No Known Allergies ROS HENT: Positive for tinnitus. Cardiovascular: Positive for dyspnea on exertion. Respiratory: Positive for cough. Musculoskeletal: Positive for back pain and joint pain. All other systems reviewed and are negative. OBJECTIVE Visit Vitals BP 108/70 (BP Location: Left arm, Patient Position: Sitting, BP Cuff Size: Adult) Pulse 79 Resp 13 Ht 1.575 m (5' 2 ) Wt 73.9 kg (163 lb) SpO2 94% BMI 29.81 kg/m??? Smoking Status Every Day BSA 1.8 m??? Medications: Current Outpatient Medications: aspirin 81 mg EC tablet, Take 1 tablet every day by oral route., Disp: , Rfl: atorvastatin (Lipitor) 40 mg tablet, Take 1 tablet (40 mg) by mouth in the morning., Disp: 90 tablet, Rfl: 3 carvedilol (Coreg) 6.25 mg tablet, TAKE 1 TABLET (6.25 MG) BY MOUTH IN THE MORNING AND AT BEDTIME., Disp: 180 tablet, Rfl: 3 fenofibrate (Lofibra) [...] Thought content normal. Judgment: Judgment normal. Labs: 11/22/2023 CBC - unremarkable Cr 0.78, BN 26, K 3.5, eGFR >60, AST 13, ALT 23 Chol 126, trig 82, LDL 68, HDL 41 11/09/2022 Cr 0.71, BUN 21, K 3.6, Na 141, eGFR >60 Chol 150, HDL 46, trig 72, LDL 89 TSH 0.294 [facility] Encounter on 11/05/2019 Component Date Value Ref Range Status Glucose 11/05/2019 75 70 - 100 mg/dL Final BUN 11/05/2019 16 7 - 25 mg/dL Final Creatinine 11/05/2019 0.50 (L) 0.60 - 1.20 mg/dL Final Sodium 11/05/2019 141 136 - 145 meq/L Final Potassium 11/05/2019 2.7 (L) 3.5 - 5.1 meq/L Final Chloride 11/05/2019 110 (H) 98 - 107 meq/L Final CO2 11/05/2019 24 21 - 31 meq/L Final Calcium 11/05/2019 7.4 (L) 8.6 - 10.3 mg/dL Final eGFR - Non- 11/05/2019 >60 >60 ml/min/1.73sq m Final eGFR - 11/05/2019 >60 >60 ml/min/1.73sq m Final Testing/Procedures: 07/04/23 TTE ECHO 08/25/20: EF >55%, grade [...] of 80 bpm. ASSESSMENT/PLAN: Diagnosis Plan 1. Dyspnea on exertion Transthoracic echo (TTE) complete Lexiscan Stress Myocardial Perfusion Imaging 2. Coronary (more content not included)... [facility] 11-29-2023 History general N arrative - Reported [...] surgical procedures, hx of, Problem Comment : [facility] 1996 - dysmenorrhea - BSO and Appy B upper blepharoplasty Colonoscopy 2010 - hyperplastic polyp, Problem Status : Active, Surgical History 2: 06/2018 - Stepanic, Problem S tatus : Active, Surgical History 1: Problem Title : s urgical procedures, hx of, Problem Description : surgical procedures, hx of, Problem Comment : [facility] 1996 - dysmenorrhea - BSO and Appy B upper blepharoplasty Colonoscopy 2010 - hyperplastic polyp R knee arthroscopic surgery Surgical History 2: 06/2018, Problem Status : Act linnea, [facility] Other 12-28-2023 Evaluation note* Encounter Date Diagnosis Assessment Notes Treatment Notes Treatment Clinical Notes Nov, Acute cystitis without hematuria (ICD-10 - N30.00) [facility] Other 12-22-2023 History general Narrative - Reported* [...] surgical procedures, hx of, Problem Comment : [facility] 1996 - dysmenorrhea - BSO and Appy B upper blepharoplasty Colonoscopy 2010 - hyperplastic polyp, Problem Status : Active, Surgical History 2: 06/2018 - Stepanic, Problem S tatus : Active, Surgical History 1: Problem Title : s urgical procedures, hx of, Problem Description : surgical procedures, hx of, Problem Comment : [facility] 1996 - dysmenorrhea - BSO and Appy B upper blepharoplasty Colonoscopy 2010 - hyperplastic polyp R knee arthroscopic surgery Surgical History 2: 06/2018, Problem Status : Act linnea, [facility] Other 12-18-2023 Evaluation note* Encounter Date Diagnosis [...] or operate machinery while taking this medication. [facility] Other [id number] NoteCurrently euvolemic without exacerbation She has never been evaluated for any pulmonary disease emphysema that she has a long history of smoking and is a current Discussed with her about pulmonary function test and referral to pulmonology with RSVP/right-sided pressures elevated and she does not want to pursue this at this time.[facility]12-15-2023 NoteCoronary artery disease is stable Continue GDMT continue risk factor modifications- heart healthy diet, regular exercise as tolerated and continue all medications.[facility] 11-15-2023 NoteHypertension is Currently well-controlled 109/68 Continue all current medications including carvedilol, hydrochlorothiazide, lisinopril Patient has annual follow-up with her PCP tomorrowUnTri[facility]12-[facility]-2023 NoteMild MR on current echo- Will monitor with routine echoes currently asymptomaticUnTriHealth Good Samaritan Hospital12-15-2023 Note Recovered EF- 65% on recent echo [facility] II- currently euvolemic without exacerbation Continue GDMT- ASA, lipitor, coreg and lisinopril Diuretic therapy- none needed at this time Monitor daily weights, I&O, fluid restriction 1.5-2L/day, renal function and electrolytesUnTriHealth Good Samaritan [facility]12-15-2023 NoteUTP CARDIOLOGY PROGRESS NOTE HPI: Robyn [...] (CMS/HCC) Recovered EF- 65% on recent echo [facility] II- currently euvolemic without exacerbation Continue GDMT- [...] tolerated and continue al (more content not included)...[facility]12-15-2023 NotePatient here for 6 mo follow up [...] pain. All other systems reviewed and are negative.[facility] 09-11-2023 Evaluation note* Encounter Date Diagnosis Assessment Notes Treatment Notes Treatment Clinical Notes Sep, Screening mammogram, encounter for (ICD-10 - Z12.31) [facility] Other 07-14-2023 Evaluation note* Encounter Date Diagnosis Assessment Notes Treatment Notes Treatment Clinical Notes Jun, Acute cystitis with hematuria (ICD-10 - N30.01) [facility] Other 07-14-2023 Evaluation note* Encounter Date Diagnosis Assessment Notes Treatment Notes Treatment Clinical Notes Jun, Acute cystitis without hematuria (ICD-10 - N30.00) [facility] Other 07-07-2023 Evaluation note* Encounter Date Diagnosis Assessment Notes Treatment Notes Treatment Clinical Notes Jun, Acute cystitis with hematuria (ICD-10 - N30.01) [facility] Other Evaluation noteNo InformationNort [email or web address] Other History general Narrative - Reported* Type Description Date Surgical History Problem Title : past surgical history reviewed, Problem Description : past surgical history reviewed, Problem Comment : reviewed - no changes required, Problem Status : Active, Surgical History Problem Title : surg ical procedures, hx of, Problem Description : surgical procedures, hx of, Problem Comment : [facility] 1996 - dysmenorrhea - BSO and Appy B upper blepharoplasty Colonoscopy 2010 - hyperplastic polyp, Problem Status : Active, Surgical History 2: 06/2018 - Stepanic, Problem S tatus : Active, Surgical History 1: Problem Title : s urgical procedures, hx of, Problem Description : surgical procedures, hx of, Problem Comment : [facility] 1996 - dysmenorrhea - BSO and Appy B upper blepharoplasty Colonoscopy 2010 - hyperplastic polyp R knee arthroscopic surgery Surgical History 2: 06/2018, Problem Status : Act linnea, [facility] Other History general Narrative - Reported* Type Description Date Medical History hypertension Medical History anxiety Medical History insomnia Medical History hypertriglyceridemia Medical History GERD Surgical History Hysterectomy 1996 Surgical History Bilateral Salpingo oophorectomy Surgical History Blepharoplasty Surgical History Colonoscopy [facility] Other Summary Purpose Family History No Family History Records FoundNo Family History Records FoundNo Family History Records Found Advance Directives No Advanced Directives Records FoundNo Advanced Directives Records FoundNo Advanced Directives Records Found Additional Source Comments INFORMATION SOURCE (unrecogn ized section and content) DATE CREATED AUTHOR 03/29/2020 [facility] DATE CREATED AUTHOR AUTHOR'S ORGANIZ ATION 04/04/2023 [facility] DATE CREATED AUTHOR AUTHOR'S ORGANIZ ATION 06/21/2024 [facility] REASON FOR VISIT (unrecogniz ed section and content) UA-Frequency, BurningNo Info rmationNo InformationNo InformationUpdaterefillMammogram OrderwellnesslabsUpdated Medical Historywellness FOR RECORDS PERTAINING TO PATIENTS WHO ARE [...] BE BASED ON THE PRIMARY CLINICAL RECORDS. [facility]. provides no warranty or guarantee of the accuracy or completeness of information in this document.
--- NOTE | 2024-07-08 07:50 | NM_ITS ---
Patient Name: MAXWELL TAI MR#: [id number] : 1955 Exam Date: 07/08/2024 Ordering Doctor: MENDOZA NICK CNP RADIOLOGY REPORT PROCEDURE: NM VINOD PERF SPECT REST STR COMPARISON: None. INDICATIONS: SHORTNESS OF BREATH, CORONARY ARTERY DISEASE TECHNIQUE: Exam Description: Stress/Rest one day protocol gated SPECT Rest Imagin.4 mCi Tc-99m Cardiolite IV on 07/08/2024 Stress Imaging 31.1 mCi Tc-99m Cardiolite IV on 07/08/2024 Exercise Protocol: 0.4 mg Lexiscan given IV Heart Rate (bpm): Rest: 72 Max: 92 PMHR: 59 Blood Pressure: Rest: 122/68 Max: 142/68 Symptoms: Rest and peak stress ECG findings were normal and the exercise portion of the study was normal per attending physician Dr. Cox . For more details please see separate cardiac stress test report. FINDINGS: QUALITY OF STUDY: Good. PERFUSION DEFECT: LOCATION: Basal anterior. Mid-anterior. SIZE: Small (1-2 segments). SEVERITY: Mild. TYPE: Persistent. WALL MOTION: Normal. LV SIZE: Normal. 109 mL. TID / TCD: None; 0.9 LVEF: Normal. Calculated EF 64%. SUMMARY: Myocardial perfusion imaging study has ABNORMAL findings. CONCLUSION: 1. Small area of decreased uptake in the anterior wall, I favor breast attenuation artifact 2. No reversible ischemia 3. Normal exercise test Dictated by: Angel Young MD on 07/09/2024 at 12:43 Approved by: Angel Young MD on 07/09/2024 at 12:47
--- NOTE | 2024-07-08 08:30 | CA_ITS ---
Patient Name: MAXWELL TAI MR#: [id number] : 1955 Exam Date: 07/08/2024 Ordering Doctor: MENDOZA NICK CR[employer] UNION TELLER ECHOCARDIOGRAM REPORT PROCEDURE: CA ECHO DOPPLER COMPLETE INDICATIONS: Dyspnea on exertion, coronary artery disease, mitral regurgitation COMPARISON: None. DESCRIPTION: COMPLETE ECHOCARDIOGRAM Real-time transthoracic echocardiography with 2D, M-mode, spectral and color flow Doppler performed. QUALITY: Technical quality was good. LEFT VENTRICLE: Normal chamber size. Normal left ventricular wall thickness. LV EF: Normal left ventricular systolic function is hyperdynamic; visually estimated ejection fraction is 65 to 70%. No obvious wall motion abnormalities. DIASTOLIC: Diastolic function is indeterminate. ATRIAL SEPTUM: Visually appears intact. LEFT ATRIUM: Normal chamber size. RIGHT ATRIUM: Normal chamber size. RIGHT VENTRICLE: Normal chamber size. Normal right ventricular systolic function. TRICUSPID VALVE: Normal mobility and thickness. No stenosis with trivial regurgitation. Doppler studies reveal mildly (35-45) elevated right sided pressures. RVSP 37 mmHg MITRAL VALVE: Normal mobility and thickness. No evidence of mitral valve stenosis. There is no mitral annular calcification. Mild mitral regurgitation. AORTIC VALVE: Normal trileaflet appearance. No visible sclerosis. Normal leaflet mobility. No evidence of aortic valve stenosis. No aortic regurgitation. AORTIC ROOT: Normal diameter and appearance. PULMONIC VALVE: Normal thickness and mobility. No stenosis. No regurgitation. PERICARDIUM: No evidence of pericardial effusion. IVC: Collapses with inspirations. IVC is normal in size. CONCLUSION: 1. Global left ventricular systolic function is hyperdynamic; visually estimated ejection fraction is 65 to 70% 2. Normal right ventricular size and systolic function 3. Diastolic function is indeterminant 4. Mildly elevated right ventricular systolic pressure; RVSP 37 mmHg 5. Mild mitral regurgitation Adult Echocardiography Procedure Report Left Ventricle LVEDD (3.7 - 5.6 cm): 5.54 cm LVESD (2.2 - 4.0 cm): 4.29 cm LVIVS thickness (0.6 - 1.2 cm): 0.96 cm LVPW thickness (0.5 - 1.0 cm): 0.96 cm e': 0.07 m/s E - e': 8.91 LVOT Max Gradient: 2.31 mm[Hg] LVOT Area (cm2): 0.76 m/s Peak Velocity (LVOT): 0.76 m/s Mean Velocity (LVOT): 0.60 m/s LVOT Diameter 2.38 cm Left Atrium LA Volume Index (2D A2C): 28.87 ml/m2 Left Atrium Systolic Dimension: 4.16 cm Mitral Valve MV E to A Ratio: 0.99 Mitral Valve A-Wave Peak Velocity: 0.67 m/s Mitral Valve E-Wave Peak Velocity: 0.66 m/s Right Ventricle Aorta AO Root Diam: 2.81 cm Ascending Ao Diam: 2.59 cm Aortic Valve AoV Area (Peak Brad): 2.89 cm2, 2.89 cm2 AoV Area (VTI): 2.88 cm2, 2.88 cm2 Peak Velocity(Antegrade Flow): 1.17 m/s Peak Gradient(Antegrade Flow): 5.48 mm[Hg] Mean Velocity(Antegrade Flow): 0.88 m/s Mean Gradient(Antegrade Flow): 3.41 mm[Hg] Velocity Time Integral: 31.05 cm Tricuspid Valve Peak Velocity (Regurgitant Flow): 2.92 m/s Pulmonic Valve Peak Gradient: 2.14 mm[Hg], 3.70 mm[Hg] Right Atrium Right Atrium Systolic Pressure: 45.09 ml, 45.09 ml Dictated by: Benitez Patterson M.D. on 07/08/2024 at 11:32 Approved by: Benitez Patterson M.D. on 07/08/2024 at 11:38
[2024-07-08] MEDS: REGADENOSON 0.4 MG/5 ML SYRINGE IV (09:59)
== END 2024-07-08 07:46 | disposition home or self-care (01) ==
LOC: NM 07:45
PROVIDERS: PCP Family Medicine; Visit Provider Nurse Practitioner Family
DX: R06.09 Other forms of dyspnea (principal); I25.10 Atherosclerotic heart disease of native coronary artery without angina pectoris; I34.0 Nonrheumatic mitral (valve) insufficiency
CPT/HCPCS: 78452; 93017; 93306; A9500; J2785

== ENCOUNTER 2024-09-21 10:47 | Outpatient (OUT) | payer BC, SELFPAY ==
--- NOTE | 2024-09-21 10:50 | MM_ITS ---
Patient Name: MAXWELL TAI MR#: [id number] : 1955 Exam Date: 09/21/2024 Ordering Doctor: DR Florencia Tipton M.D. RADIOLOGY REPORT PROCEDURE: MM TOMOSYNTHESIS SCREENING BI COMPARISON: MG MAMM SCREEN 3D PETAR CAD, 09/10/2022. MM TOMOSYNTHESIS SCREENING BI, 09/17/2023. INDICATIONS: Screening Calculator Name NCI Breast Cancer Risk Assessment Tool 5 Year Breast Cancer Risk 3.60% Lifetime Breast Cancer Risk 12.10% Personal Breast Cancer No Personal Ovarian Cancer No Treatments None Family Cancers Mother with breast cancer at age 73; Father with skin cancer at age ~70. LOCATION: [facility] BREAST COMPOSITION: The breasts are heterogeneously dense,which may obscure small masses. FINDINGS: DIAGNOSTIC CATEGORY 2--BENIGN FINDING. NO CHANGE FROM COMPARISON. Scattered benign-appearing calcifications are present. Scattered benign-appearing lymph nodes are present. RIGHT BREAST: No significant suspicious finding. LEFT BREAST: No significant suspicious finding. RECOMMENDATIONS: ROUTINE MAMMOGRAM AND CLINICAL EVALUATION IN 12 MONTHS. PLEASE NOTE: A NORMAL MAMMOGRAM DOES NOT EXCLUDE THE POSSIBILITY OF BREAST CANCER. A CLINICALLY SUSPICIOUS PALPABLE LUMP SHOULD BE BIOPSIED. Dictated by: Angel Young MD on 09/21/2024 at 12:14 Approved by: Angel Young MD on 09/21/2024 at 12:28
--- OUTSIDE RECORDS SUMMARY | 2024-09-21 10:54 | XMS_ITS | CCD ---
Author Organization [facility] Team Providers Care Gasket Maker Name Role Phone ELTAHAWY, EHAB A Admitting [...] Florencia Wolf Unavailable Boo Walker Unavailable MENDOZA URBINA Attending Unavailable GABRIELE ESTEBAN Attending Unavailable Allergies Allergy Classification Reported Allergen(s) Allergy Type Date of Onset Reaction(s) Facility (2 sources) patient allergy list reviewed by nurse or physicia Propensity to adverse reactions 4 Comment:Done [facility] Other (2 sources) Allergies Reconciled Propensity to adverse reactions Unknown [facility] Other Medications Current Medications Medication Drug Class(es) [...] disease (2 sources) Atherosclerotic heart disease of [place] coronary artery without angina pectoris; Translations: [Atherosclerotic heart disease of [place] coronary artery without angina pectoris] Onset: 11-19-2022 [...] Test Name Value Interpretation Reference Range Facility 36on 07-21-2024 36 LM on patient's VM with message from Marimar Urbina CNP. [facility] 36on 07-16-2024 36 Please let her know her stress test was negative. Her ECHO was also good, no significant changes. She has mild mitral regurg which has been stable compared to previous ECHOs. No objections for her to proceed with surgery if she decides to proceed with things. Thanks! [facility] 36on 07-15-2024 36 Patient had echo and stress test completed and they're scanned into [employer]. Can you please review when you have time and let me know what you need for her? Thanks! [facility] Office Visiton 06-17-2024 Follow-up visit [id number] Robyn Tai 1955 F Date Provider Department Center 06/17/2024 166MENDOZA FAUST MARCOS [facility] No family history on file Level of Service:05052 MD OFFICE/OUTPATIENT ESTABLISHED MOD MDM 30 MIN Reason for Visit and Comments: Follow-up [579892] - 6 month follow up [facility] Office Visiton 11-15-2023 Follow-up visit [id number] Robyn Tai 1955 F Date Provider Department Center 11/15/2023 120-GABRIELE ESTEBAN MARCOS [facility] No family history on file Level of Service:48871 MD OFFICE/OUTPATIENT ESTABLISHED MOD MDM 30-39 MIN [facility] Orders Onlyon 10-22-2023 Orders Only [id number] Robyn Tai 1955 Date Provider Department Center 10/22/2023 Jaimee-FRAN ASHTON. No family history on file [facility] US THYROIDon 11-20-2022 US THYROID EXAMINATION: [...] HORACIO ORO Date: 2022-11-19 23:59 Normal [facility] CBC AUTO DIFFon 11-09-2022 BASO # 0.0 103/ul Normal 0.0-0.1 [facility] Comment on above: Performed By: #### C BC #### [facility] [address] [place] [address] Dr. Mike Ball Basophils/100 WBC (Bld) 0.2 % Normal 0.2-2.0 [facility] Comment on above: Performed By: #### C BC #### [facility] [address] [place] [address] Dr. Mike Ball EO # 0.3 103/ul Normal 0.0-0.7 [facility] Comment on above: Performed By: #### C BC #### [facility] [address] [place] [address] Dr. Mike Ball Eosinophils/100 WBC (Bld) 4.2 % Normal 0.9-7.0 [facility] Comment on above: Performed By: #### C BC #### [facility] [address] [place] [address] Dr. Mike Ball Erythrocyte distribution width (RBC) [Ratio] 12.5 % Normal 11.0-15.0 [facility] Comment on above: Performed By: #### C BC #### [facility] [address] [place] [address] Dr. Mike Ball Hematocrit (Bld) [Volume fraction] 43.2 % Normal 36.0-48.0 [facility] Comment on above: Performed By: #### C BC #### [facility] [address] [place] [address] Dr. Mike Ball Hemoglobin (Bld) [Mass/Vol] 14.6 g/dL Normal 12.0-16.0 [facility] Comment on above: Performed By: #### C BC #### [facility] [address] [place] [address] Dr. Mike Ball IG # 0.01 10e3/ul Normal 0.00-0.03 [facility] Comment on above: Performed By: #### C BC #### [facility] [address] [place] [address] Dr. Mike Ball IG % 0.1 % Normal 0.0-0.5 [facility] Comment on above: Performed By: #### C BC #### [facility] [address] [place] [address] Dr. Mike Ball LYMPH # 2.4 103/ul Normal 1.2-3.8 [facility] Comment on above: Performed By: #### C BC #### [facility] [address] [place] [address] Dr. Mike Ball Lymphocytes/100 WBC (Bld) 30.0 % Normal 20.5-60.0 [facility] Comment on above: Performed By: #### C BC #### [facility] [address] [place] [address] Dr. Mike Ball MANUAL DIFF REQ NO Normal [facility] Comment on above: Performed By: #### C BC #### [facility] [address] [place] [address] Dr. iMke Ball MCH (RBC) [Entitic mass] 30.4 pg Normal 26.7-34.0 [facility] Comment on above: Performed By: #### C BC #### [facility] [address] [place] [address] Dr. Mike Ball MCHC (RBC) [Mass/Vol] 33.8 g/dL Normal 29.9-35.2 [facility] Comment on above: Performed By: #### C BC #### [facility] [address] [address] [address] Mike Ball MCV (RBC) [Entitic vol] 89.8 fL Normal 81.0-99.0 [facility] Comment on above: Performed By: #### C BC #### [facility] [address] [address] [address] Mike Ball MONO # 0.7 103/ul Normal 0.3-0.8 [facility] Comment on above: Performed By: #### C BC #### [facility] [address] [place] [address] Dr. Mike Ball Monocytes/100 WBC (Bld) 8.6 % Normal 1.7-12.0 [facility] Comment on above: Performed By: #### C BC #### [facility] [address] [place] [address] Dr. Mike Ball NEUT # 4.6 103/ul Normal 1.4-6.5 [facility] Comment on above: Performed By: #### C BC #### [facility] [address] [place] [address] Dr. Mike Ball Neutrophils/100 WBC (Bld) 56.9 % Normal 43.0-75.0 [facility] Comment on above: Performed By: #### C BC #### [facility] [address] [place] [address] Dr. Mike Ball Platelet mean volume (Bld) [Entitic vol] 10.7 fL Normal 9.5-13.5 [facility] Comment on above: Performed By: #### C BC #### [facility] [address] [place] [address] Dr. Mike Ball PLT 276 103/ul Normal 150-450 [facility] Comment on above: Performed By: #### C BC #### [facility] [address] [place] [address] Dr. Mike Ball RBC 4.81 106/ul Normal 4.20-5.40 [facility] Comment on above: Performed By: #### C BC #### [facility] [address] [address] [address] Mike Ball WBC 8.1 103/ul Normal 4.0-11.0 [facility] Comment on above: Performed By: #### C BC #### [facility] [address] [place] [address] Dr. Mike Ball GLYCOHEMOGLOBIN A1Con 2021 ADA RECOMMENDATION SEE BELOW Normal [facility] Comment on above: Result Comment: ADA RECOMMENDED LIMIT 4.0 - 6.0 ADA THERAPEUTIC TARGET < 7.0 ACTION SUGGESTED > 7.0 Performed By: #### A 1C #### [facility] [address] [place] [address] Dr. Mike Ball Glucose [Mass/Vol] 128 mg/dL Normal [facility] Comment on above: Performed By: #### A 1C #### [facility] [address] [place] [address] Dr. Mike Ball HbA1c (Bld) [Mass fraction] 6.1 % Normal 4.5-6.2 [facility] Comment on above: Performed By: #### A 1C #### [facility] [address] [place] [address] Dr. Mike Ball LIPID PROFILEon 11-09-2022 CHOL-HDL RATIO NORM SEE BELOW Normal [facility] Comment on above: Result Comment: 3.3 - 4.4 LOW RISK 4.4 - 7.1 AVERAGE RISK 7.1 - 11.0 MODERATE RISK >11.0 HIGH RISK Performed By: #### C MP, LIPID, TSH #### [facility] [address] [place] [address] Dr. Mike Ball Cholesterol [Mass/Vol] 150 mg/dL Normal <=200 [facility] Comment on above: Performed By: #### C MP, LIPID, TSH #### [facility] [address] [place] [address] Dr. Mike Ball Cholesterol in HDL [Mass/Vol] 46 mg/dL Normal 40-60 [facility] Comment on above: Performed By: #### C MP, LIPID, TSH #### [facility] [address] [address] [address] Mike Ball Cholesterol in LDL [Mass/Vol] 89.6 mg/dL Normal [facility] Comment on above: Performed By: #### C MP, LIPID, TSH #### [facility] [address] [address] [address] Mike Ball Cholesterol.total/Ch olesterol in HDL [Mass ratio] 3.3 {ratio} Normal [facility] Comment on above: Performed By: #### C MP, LIPID, TSH #### [facility] [address] [address] [address] Mike Ball HDL NORMAL > or = 60 mg/dl - LOW CARDIOVASCULAR RISK <40 mg/dl - HIGH CARDIOVASCULAR RISK Normal [facility] Comment on above: Performed By: #### C MP, LIPID, TSH #### [facility] [address] [place] [address] Dr. Mike Ball LDL CALC NORMAL SEE BELOW Normal [facility] Comment on above: Result Comment: <100 mg/dl OPTIMAL 100 - 129 mg/dl NEAR OR ABOVE OPTIMAL 130 - 159 mg/dl BORDERLINE HIGH 160 - 189 mg/dl HIGH >190 mg/dl VERY HIGH Performed By: #### C MP, LIPID, TSH #### [facility] [address] [place] [address] Dr. Mike Ball Triglyceride [Mass/Vol] 72 mg/dL Normal <=150 [facility] Comment on above: Performed By: #### C MP, LIPID, TSH #### [facility] [address] [address] [address] Mike Ball VLDL CALC 14.4 mg/dL Normal [facility] Comment on above: Performed By: #### C MP, LIPID, TSH #### [facility] [address] [place] [address] Dr. Mike Ball PROF 14(COMP METB)on 022 Albumin [Mass/Vol] 4.1 g/dL Normal 3.4-5.0 [facility] Comment on above: Performed By: #### C MP, LIPID, TSH #### [facility] [address] [address] [address] Mike Ball Albumin/Globulin [Mass ratio] 1.4 {ratio} Normal [facility] Comment on above: Performed By: #### C MP, LIPID, TSH #### [facility] [address] [address] [address] Mike Ball ALP [Catalytic activity/Vol] 63 U/L Normal 46-116 [facility] Comment on above: Performed By: #### C MP, LIPID, TSH #### [facility] [address] [address] [address] Mike Ball ALT [Catalytic activity/Vol] 22 U/L Normal 14-59 [facility] Comment on above: Performed By: #### C MP, LIPID, TSH #### [facility] [address] [address] [address] Mike Ball Anion gap [Moles/Vol] 9.0 mmol/L Normal [facility] Comment on above: Performed By: #### C MP, LIPID, TSH #### [facility] [address] [address] [address] Mike Ball AST [Catalytic activity/Vol] 18 U/L Normal 15-37 [facility] Comment on above: Performed By: #### C MP, LIPID, TSH #### [facility] [address] [address] [address] Mike Ball Bilirubin [Mass/Vol] 0.5 mg/dL Normal 0.2-1.0 [facility] Comment on above: Performed By: #### C MP, LIPID, TSH #### [facility] [address] [address] [address] Mike Ball Calcium [Mass/Vol] 9.2 mg/dL Normal 8.5-10.1 [facility] Comment on above: Performed By: #### C MP, LIPID, TSH #### [facility] [address] [address] [address] Mike Ball Chloride [Moles/Vol] 102 mmol/L Normal 98-107 [facility] Comment on above: Performed By: #### C MP, LIPID, TSH #### [facility] [address] [address] [address] Mike Ball CO2 [Moles/Vol] 33.6 mmol/L Critically high 21.0-32.0 [facility] Comment on above: Performed By: #### C MP, LIPID, TSH #### [facility] [address] [address] [address] Mike Ball Creatinine [Mass/Vol] 0.71 mg/dL Normal 0.55-1.02 [facility] Comment on above: Performed By: #### C MP, LIPID, TSH #### [facility] [address] [address] [address] Mike Ball EGFR-AF THAI >60 Normal >=60 [facility] Comment on above: Performed By: #### C MP, LIPID, TSH #### [facility] [address] [address] [address] Mike Ball EGFR-NON AF THAI >60 Normal >=60 [facility] Comment on above: Performed By: #### C MP, LIPID, TSH #### [facility] [address] [address] [address] Mike Ball Globulin (S) [Mass/Vol] 2.9 g/dL Normal [facility] Comment on above: Performed By: #### C MP, LIPID, TSH #### [facility] [address] [address] [address] Mike Ball Glucose [Mass/Vol] 120 mg/dL Critically high 74-106 [facility] Comment on above: Performed By: #### C MP, LIPID, TSH #### [facility] [address] [address] [address] Mike Ball Potassium [Moles/Vol] 3.6 mmol/L Normal 3.5-5.1 [facility] Comment on above: Performed By: #### C MP, LIPID, TSH #### [facility] [address] [address] [address] Mike Ball Protein [Mass/Vol] 7.0 g/dL Normal 6.4-8.2 [facility] Comment on above: Performed By: #### C MP, LIPID, TSH #### [facility] [address] [address] [address] Mike Ball Sodium [Moles/Vol] 141 mmol/L Normal 136-145 [facility] Comment on above: Performed By: #### C MP, LIPID, TSH #### [facility] [address] [address] [address] Mike Ball Urea nitrogen [Mass/Vol] 21.0 mg/dL Critically high 7.0-18.0 [facility] Comment on above: Performed By: #### C MP, LIPID, TSH #### [facility] [address] [address] [address] Mike Ball Urea nitrogen/Creatinine [Mass ratio] 29.6 mg/mg Normal [facility] Comment on above: Performed By: #### C MP, LIPID, TSH #### [facility] [address] [address] [address] Mike Ball TSHon 11-09-2022 TSH 0.294 uIU/mL Critically low 0.358-3.740 [facility] Comment on above: Performed By: #### C MP, LIPID, TSH #### [facility] [address] [address] [address] Mike Ball MG MAMM SCREEN 3D PETAR CADon 09-10-2022 MG MAMM SCREEN 3D PETAR CAD Patient: ROBYN TAI Exam Date: 09/10/2022 : 1955 Gender:F Ordering : DR FLORENCIA WOLF M.D. Admission #: [id number] Family : Order #: [id number] CLICK HERE TO VIEW EXAM RADIOLOGY REPORT [...] skin cancer at age 72. LOCATION: [facility] BREAST COMPOSITION: Heterogeneously dense,which may [...] MD on 09/10/2022 at 11:53 Normal [facility] Cardiovascular Lab Reporton 11-06-2019 Cardiovascular Lab Report [facility] Patient Name: [facility] Robyn He MR #: [id number] Department of Physician: Louis Miranda M.D. Division of Service Date: 11/05/2019 Cardiology Birthdate: 1955 Adult Cardiovascular Room #: [address] [place] [address] Cardiovascular Laboratory Report FINAL IMPRESSIONS: 1. Mild coronary artery disease. 2. Moderately reduced global left ventricular systolic function. 3. Tlyk-zo-erlajdxu mitral regurgitation. 4. Mildly elevated right-sided heart [...] up with Dr. Schilling/Dr. Vallejo in the [facility]. 6. Follow up with Dr. Florencia Wolf as scheduled. PROCEDURES: Right heart catheterization, bilateral selective coronary angiography, left heart catheterization, left ventriculography, limited femoral angiography, placement of a 6-Barbadian MynxGrip closure device. METHODS: After risks, benefits, and alternatives were explained, written informed consent was obtained. The patient was prepped and draped in the usual sterile fashion over the right groin. Using 1% lidocaine solution, local infiltration anesthesia was achieved. Using a modified Seldinger technique, micropuncture kit, access to the right common femoral vein and artery was obtained. A 6-Barbadian 11 cm sheath was placed in each. Baseline femoral angiography was performed via the inner cannula of a micropuncture kit prior to up sizing to a 6-Barbadian sheath. Right heart catheterization was performed using [...] was elected to conclude the procedure. A 6-Barbadian MynxGrip closure device was deployed per protocol [...] 03:17 P Benitez Vallejo M.D. Date Dict: 11/05/2019/01:53 P/Benitez Vallejo M.D. Date Trans: 11/06/2019 06:49 Neri/ryan [id number] cc: Florencia Wolf M.D. [address] [place] [address] Girish Schilling M.D. [address] [address] Normal [facility] BASIC METABOLIC PANELon 12-0 Calcium [Mass/Vol] 7.4 mg/dL Low 8.6-10.3 [facility] Comment on above: Performed By: #### 0 0071 #### [facility] [address] [place] [address], [facility] Chloride [Moles/Vol] 110 mmol/L High 98-107 [facility] Comment on above: Performed By: #### 0 0071 #### [facility] [address] [place] [id number], [facility] CO2 [Moles/Vol] 24 mmol/L Normal 21-31 [facility] Comment on above: Performed By: #### 0 0071 #### [facility] [address] [place] [address], [facility] Creatinine [Mass/Vol] 0.50 mg/dL Low 0.60-1.20 [facility] Comment on above: Performed By: #### 0 0071 #### [facility] [address] [place] [address], [place] GFR/1.73 sq M predicted among blacks MDRD (S/P/Bld) [Vol rate/Area] mL/min/{1.73_m2} Normal >60 [facility] Comment on above: Performed By: #### 0 0071 #### [facility] [address] [place] [address], [place] GFR/1.73 sq M predicted among non-blacks MDRD (S/P/Bld) [Vol rate/Area] mL/min/{1.73_m2} Normal >60 [facility] Comment on above: Performed By: #### 0 0071 #### [facility] [address] [place] [address], [place] Glucose [Mass/Vol] 75 mg/dL Normal 70-100 [facility] Comment on above: Performed By: #### 0 0071 #### [facility] [address] [place] [address], [facility] Potassium [Moles/Vol] 2.7 mmol/L Low 3.5-5.1 [facility] Comment on above: Performed By: #### 0 0071 #### [facility] [address] [place] [address], [place] Sodium [Moles/Vol] 141 mmol/L Normal 136-145 [facility] Comment on above: Performed By: #### 0 0071 #### [facility] [address] [place] [address], [facility] Urea nitrogen [Mass/Vol] 16 mg/dL Normal 7-25 [facility] Comment on above: Performed By: #### 0 0071 #### [facility] [address] Vital Signs Date Time Vital Sign Value Performing Clinician Facility 12-16-2023 16:05-0500 Body height 157.48 cm Florencia Wolf Other [facility] Other 11-18-2023 14:00-0500 Body height 157.48 cm Florencia Wolf Other [facility] Other 11-18-2023 14:00-0500 Body mass index (BMI) [Ratio] 28.82 kg/m2 Florencia Wolf Other [facility] Other 11-18-2023 14:00-0500 Body temperature 96.8 [degF] Florencia Wolf Other [facility] Other 11-18-2023 14:00-0500 Body weight 71.49 kg Florencia Wolf Other [facility] Other 11-18-2023 14:00-0500 Diastolic blood pressure 72 mm[Hg] Florencia Wolf Other [facility] Other 11-18-2023 14:00-0500 Systolic blood pressure 130 mm[Hg] Florencia Wolf Other [facility] Other Encounters Encounter Date Encounter Type Care Provider Facility Start: 06-17-2024 End: 06-17-2024 ambulatory [facility] Start: 12-16-2023 End: 12-16-2023 ambulatory Florencia Wolf Other [facility] Other Start: 12-16-2023 Telephone encounter Florencia Wolf [facility] Start: 11-28-2023 End: 11-28-2023 ambulatory Florencia Wolf Other [facility] Other Start: 11-28-2023 Telephone encounter Florencia Wolf [facility] Start: 11-18-2023 End: 11-18-2023 ambulatory Florencia Saeed Other [facility] Other Start: 11-18-2023 Encounter for sol l adult medical examination without abnormal findings Florenciaalisson Wolf [facility] Start: 11-18-2023 Periodic preventive med est patient 65yrs& older Florencia Wolf [facility] Start: 11-15-2023 End: 11-15-2023 ambulatory GABRIELE CARLITO [facility] Start: 09-11-2023 End: 09-11-2023 ambulatory Florencia Wolf Other [facility] Other Start: 09-11-2023 Telephone encounter Florencia Saeed [facility] Start: 07-10-2023 End: 07-10-2023 ambulatory Boo Walker Other [facility] Other Start: 07-10-2023 Telephone encounter Boo Walker [facility] Start: 06-18-2023 End: 06-18-2023 ambulatory Boo Walker Other [facility] Other Start: 06-18-2023 Telephone encounter Boo Walker [facility] Start: 06-14-2023 End: 06-14-2023 ambulatory Boo Walker Other [facility] Other Start: 06-14-2023 Telephone encounter Boo Walker [facility] Start: 06-07-2023 End: 06-07-2023 ambulatory Florencia Wolf Other [facility] Other Start: 06-07-2023 Nursing evaluation o f patient and report Florencia Wolf [facility] Start: 03-28-2023 End: 03-29-[address] BOO WALKER Facility:[facility] Start: 12-12-2022 ambulatory FRAN ASHTON Facility:[facility] Start: 11-19-2022 End: 11-20-[address] HORACIO ORO Facility:[facility] Start: 11-13-2022 Adult health examination Boo Walker Other [facility] Other Start: 11-12-2022 Encounter for genera l adult medical examination without abnormal findings DR FLORENCIA WOLF [facility] Start: 11-09-2022 End: 11-10-[address] FLORENCIA WOLF Facility:[facility] Start: 11-09-2022 End: 11-10-2022 Encounter for general adult medical examination without abnormal findings DR FLORENCIA WOLF Facility:[facility] Start: 10-05-2022 End: 10-06-[address] LILIYA PONCE . Facility:[facility] Start: 09-10-2022 End: 09-11-[address] FLORENCIA WOLF Facility:[facility] Start: 11-05-2019 End: 11-06-2019 Patient encounter procedure EHAB Neri VALLEJO Facility:[facility] Start: 10-06-2019 Problem, abnormal examination Boo Walker Other [facility] Other Procedures Date Procedure Procedure Detail Performing Clinician Start: 04-08-2014 General examination of patient Boo Walker Other Screening for malign ant neoplasm of breast Boo Walker Other Immunizations Immunization Date Immunization Notes Care Provider Miguel kirk 03-25-2023 Shingrix 50 MCG/0.5M L; Translations: [Shingrix 50 MCG/0.5ML] Florencia Wolf Other [facility] Other Payers Date Payer Category Payer Unknown [id number] 2019 Unknown [id number] 1957 Self-pay [id number] 1955 Unknown [id number] 2.16.8 [id number] 1955 Unknown [id number] 2.16.84 [id number] 1955 Unknown [id number] 2.16.84 [id number] 1955 Unknown [id number] 2.16.84 [id number] 1955 Unknown [id number] 2.16.84 [id number] 1955 Unknown [id number] 2.16.84 [id number] Unknown [id number] Unknown [id number] 2.16.84 [id number] Social History Date Type Detail Facility Sex Assigned At [facility] Other Clinical Notes 06-07-2023 to 06-17-2024 Note Date & Type Note Facility 06-17-2024 Note Cardiovascular Medic [facility] SUBJECTIVE Chief Complaint Patient presents with Follow-up 6 month follow up Robyn Tai is a 68 y.o. female here for follow-up. HPI PMHx of HFrEF, NICM (viral), mild CAD per 11/2019 cath, diastolic dysfunction, MR, HTN, anxiety. 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 Coronary (more content not included)... [facility] 11-29-2023 History general N arrative - Reported [...] surgical procedures, hx of, Problem Comment : [facility] 1996 - dysmenorrhea - BSO and Appy B upper blepharoplasty Colonoscopy 2010 - hyperplastic polyp, Problem Status : Active, Surgical History 2: 06/2018 - Stepanic, Problem S tatus : Active, Surgical History 1: Problem Title : s urgical procedures, hx of, Problem Description : surgical procedures, hx of, Problem Comment : [facility] 1996 - dysmenorrhea - BSO and Appy B upper blepharoplasty Colonoscopy 2010 - hyperplastic polyp R knee arthroscopic surgery Surgical History 2: 06/2018, Problem Status : Act linnea, [facility] Other 12-28-2023 Evaluation note* Encounter Date Diagnosis Assessment Notes Treatment Notes Treatment Clinical Notes Nov, Acute cystitis without hematuria (ICD-10 - N30.00) [facility] Other 12-22-2023 History general Narrative - Reported* [...] surgical procedures, hx of, Problem Comment : [facility] 1996 - dysmenorrhea - BSO and Appy B upper blepharoplasty Colonoscopy 2010 - hyperplastic polyp, Problem Status : Active, Surgical History 2: 06/2018 - Stepanic, Problem S tatus : Active, Surgical History 1: Problem Title : s urgical procedures, hx of, Problem Description : surgical procedures, hx of, Problem Comment : [facility] 1996 - dysmenorrhea - BSO and Appy B upper blepharoplasty Colonoscopy 2010 - hyperplastic polyp R knee arthroscopic surgery Surgical History 2: 06/2018, Problem Status : Andrzej yarbrough, [employer] Other 12-18-2023 Evaluation note* Encounter Date Diagnosis [...] or operate machinery while taking this medication. [employer] Other [id number] NoteCurrently euvolemic without exacerbation She has never been evaluated for any pulmonary disease emphysema that she has a long history of smoking and is a current Discussed with her about pulmonary function test and referral to pulmonology with RSVP/right-sided pressures elevated and she does not want to pursue this at this time.[facility]12-15-2023 NoteCoronary artery disease is stable Continue GDMT continue risk factor modifications- heart healthy diet, regular exercise as tolerated and continue all medications.[facility] 11-15-2023 NoteHypertension is Currently well-controlled 109/68 Continue all current medications including carvedilol, hydrochlorothiazide, lisinopril Patient has annual follow-up with her [facility]CP [facility]Un[facility] NoteMild MR on current echo- Will monitor with routine echoes currently asymptomaticUnFort [facility] Hospital12-15-2023 Note Recovered EF- 65% on recent echo [facility] II- currently euvolemic without exacerbation Continue GDMT- ASA, lipitor, coreg and lisinopril Diuretic therapy- none needed at this time Monitor daily weights, I&O, fluid restriction 1.5-2L/day, renal function and electrolytesUnFort [facility]12-15-2023 NoteUTP CARDIOLOGY PROGRESS NOTE HPI: Robyn [...] EF- 65% on recent echo [facility] II- currently euvolemic without exacerbation Continue GDMT- [...] tolerated and continue al (more content not included)...[facility]12-15-2023 NotePatient here for 6 mo follow [...] pain. All other systems reviewed and are negative.[facility] 09-11-2023 Evaluation note* Encounter Date Diagnosis Assessment Notes Treatment Notes Treatment Clinical Notes Sep, Screening mammogram, encounter for (ICD-10 - Z12.31) [facility] Other 07-14-2023 Evaluation note* Encounter Date Diagnosis Assessment Notes Treatment Notes Treatment Clinical Notes Jun, Acute cystitis with hematuria (ICD-10 - N30.01) [facility] Other 07-14-2023 Evaluation note* Encounter Date Diagnosis Assessment Notes Treatment Notes Treatment Clinical Notes Jun, Acute cystitis without hematuria (ICD-10 - N30.00) [employer] Other 07-07-2023 Evaluation note* Encounter Date Diagnosis Assessment Notes Treatment Notes Treatment Clinical Notes Jun, Acute cystitis with hematuria (ICD-10 - N30.01) [employer] Other Evaluation noteNo InformationNort Tute [employer] Other History general Narrative - Reported* Type Description Date Surgical History Problem Title : past surgical history reviewed, Problem Description : past surgical history reviewed, Problem Comment : reviewed - no changes required, Problem Status : Active, Surgical History Problem Title : surg ical procedures, hx of, Problem Description : surgical procedures, hx of, Problem Comment : [facility] 1996 - dysmenorrhea - BSO and Appy B upper blepharoplasty Colonoscopy 2010 - hyperplastic polyp, Problem Status : Active, Surgical History 2: 06/2018 - Stepanic, Problem S tatus : Active, Surgical History 1: Problem Title : s urgical procedures, hx of, Problem Description : surgical procedures, hx of, Problem Comment : [facility] 1996 - dysmenorrhea - BSO and Appy B upper blepharoplasty Colonoscopy 2010 - hyperplastic polyp R knee arthroscopic surgery Surgical History 2: 06/2018, Problem Status : Act linnea, [employer] Other History general Narrative - Reported* Type Description Date Medical History hypertension Medical History anxiety Medical History insomnia Medical History hypertriglyceridemia Medical History GERD Surgical History Hysterectomy 1996 Surgical History Bilateral Salpingo oophorectomy Surgical History Blepharoplasty Surgical History Colonoscopy [employer] Other Summary Purpose Family History No Family History Records FoundNo Family History Records FoundNo Family History Records Found Advance Directives No Advanced Directives Records FoundNo Advanced Directives Records FoundNo Advanced Directives Records Found Additional Source Comments INFORMATION SOURCE (unrecogn ized section and content) DATE CREATED AUTHOR 03/29/2020 [facility] DATE CREATED AUTHOR AUTHOR'S ORGANIZ ATION 04/04/2023 [facility] DATE CREATED AUTHOR AUTHOR'S ORGANIZ ATION 07/23/2024 [facility] REASON FOR VISIT (unrecogniz ed section and [...] BE BASED ON THE PRIMARY CLINICAL RECORDS. [facility] provides no warranty or guarantee of the accuracy or completeness of information in this document.
== END 2024-09-21 10:48 | disposition home or self-care (01) ==
LOC: MAMMO 10:47
PROVIDERS: PCP Family Medicine; Visit Provider Family Medicine
DX: Z12.31 Encounter for screening mammogram for malignant neoplasm of breast (principal); Z80.3 Family history of malignant neoplasm of breast; Z80.8 Family history of malignant neoplasm of other organs or systems
CPT/HCPCS: 77063; 77067

== ENCOUNTER 2025-01-11 07:02 | Outpatient (OUT) | payer BC, SELFPAY ==
--- OUTSIDE RECORDS SUMMARY | 2025-01-11 07:05 | XMS_ITS | CCD ---
Author Organization [facility] Care Team Providers Care Visualization Developer Name Role Phone YONI, EHAB A Admitting Unavailable YONI EHAB A Attending Unavailable FLROENCIA WOLF Primary Care Unavailable GIRISH SCHILLING Referring Unavailable WOLF, DR FLORENCIA [place] Primary Care Unavailable WOLF, DR FLORENCIA [place] Attending Unavailable WOLF, DR FLORENCIA [place] Admitting Unavailable WEST, DR SHEELA [employer] Unavailable WOLF, DR FLORENCIA [place] Consulting Unavailable HOY ., DR LOVELL Consulting Unavailable JEEVANY ., DR LOVELL Attending Unavailable WOLF, DR [...] Unavailable Florencia Wolf Unavailable Boo Walker Unavailable BENITEZ PATTERSON Attending Unavailable MENDOZA URBINA Attending Unavailable Allergies Allergy Classification Reported Allergen(s) Allergy Type Date of Onset Reaction(s) Facility (2 sources) patient allergy list reviewed by nurse or physicia Propensity to adverse reactions 4 Comment:Done [facility] Other (2 sources) Allergies Reconciled Propensity to adverse reactions Unknown [facility] Other Medications Current Medications Medication Drug Class(es) [...] Translations: [Chronic systolic (congestive) heart failure] Onset: 11-15-2023 Chronic Coronary atherosclerosis and other heart disease (2 sources) Atherosclerotic heart disease of [place] coronary artery without angina pectoris; Translations: [Atherosclerotic heart disease of [place] coronary artery without angina pectoris] Onset: 01-06-2025 Chronic Disorders of lipid metabolism (20 sources) Familial hypercholesterolemia; Translations: [Familial hypercholesterolemia] Onset: [...] [Unilateral primary osteoarthritis, right knee] Chronic Other nutritional; endocrine; and metabolic disorders (12 [...] other organism, NEC] Onset: 07-26-2017 Episodic Other lower respiratory disease (2 sources) Other forms of dyspnea; Translations: [Other forms of dyspnea] Onset: 06-17-2024 Episodic Other non-traumatic joint disorders (6 sources) [...] Value Interpretation Reference Range Facility Office Visiton 01-06-2025 Follow-up visit [id number] Robyn Tai 1955 F Date Provider Department Center 01/06/2025 [facility]-BENITEZ PATTERSON CARD [facility] No family history on file Level of Service:93380 HI OFFICE/OUTPATIENT ESTABLISHED MOD MDM 30 MIN [facility] 36on 07-21-2024 36 LM on patient's VM with message from Marimar Urbina CNP. [facility] 36on 07-16-2024 36 Please let her know her stress test was negative. Her ECHO was also good, no significant changes. She has mild mitral regurg which has been stable compared to previous ECHOs. No objections for her to proceed with surgery if she decides to proceed with things. Thanks! [facility] 36on 07-15-2024 36 Patient had echo and stress test completed and they're scanned into multimedia manager. Can you please review when you have time and let me know what you need for her? Thanks! [facility] Office Visiton 06-17-2024 Follow-up visit [id number] Robyn Tai 1955 Date Provider Department Center 06/17/2024 M[facility] No family history on file Level of Service:23591 HI OFFICE/OUTPATIENT ESTABLISHED MOD MDM 30 MIN Reason for Visit and Comments: Follow-up [166188] - 6 month follow up [facility] US THYROIDon 11-20-2022 US THYROID EXAMINATION: [...] HORACIO ORO Date: 2022-11-19 23:59 Normal [facility] CBC AUTO DIFFon 11-09-2022 BASO # 0.0 103/ul Normal 0.0-0.1 [facility] Comment on above: Performed By: #### C BC #### [facility] [address] [address] [address] Mike Ball Basophils/100 WBC (Bld) 0.2 % Normal 0.2-2.0 [facility] Comment on above: Performed By: #### C BC #### [facility] [address] [address] [address] Mike Ball EO # 0.3 103/ul Normal 0.0-0.7 [facility] Comment on above: Performed By: #### C BC #### [facility] [address] [address] [address] Mike Ball Eosinophils/100 WBC (Bld) 4.2 % Normal 0.9-7.0 [facility] Comment on above: Performed By: #### C BC #### [facility] [address] [address] [address] Mike Ball Erythrocyte distribution width (RBC) [Ratio] 12.5 % Normal 11.0-15.0 [facility] Comment on above: Performed By: #### C BC #### [facility] [address] [place] [address] Dr. Mike Ball Hematocrit (Bld) [Volume fraction] 43.2 % Normal 36.0-48.0 [facility] Comment on above: Performed By: #### C BC #### [facility] [address] [address] [address] Mike Ball Hemoglobin (Bld) [Mass/Vol] 14.6 g/dL Normal 12.0-16.0 [facility] Comment on above: Performed By: #### C BC #### [facility] [address] [place] [address] Dr. Mike Ball IG # 0.01 10e3/ul Normal 0.00-0.03 [facility] Comment on above: Performed By: #### C BC #### [facility] [address] [place] [address] Dr. Mike Ball IG % 0.1 % Normal 0.0-0.5 [facility] Comment on above: Performed By: #### C BC #### [facility] [address] [place] [address] Dr. Mike Ball LYMPH # 2.4 103/ul Normal 1.2-3.8 [facility] Comment on above: Performed By: #### C BC #### [facility] [address] [place] [address] Dr. Mike Ball Lymphocytes/100 WBC (Bld) 30.0 % Normal 20.5-60.0 [facility] Comment on above: Performed By: #### C BC #### [facility] [address] [place] [address] Dr. Mike Ball MANUAL DIFF REQ NO Normal [facility] Comment on above: Performed By: #### C BC #### [facility] [address] [place] [address] Dr. Mike Ball MCH (RBC) [Entitic mass] 30.4 pg Normal 26.7-34.0 [facility] Comment on above: Performed By: #### C BC #### [facility] [address] [place] [address] Dr. Mike Ball MCHC (RBC) [Mass/Vol] 33.8 g/dL Normal 29.9-35.2 [facility] Comment on above: Performed By: #### C BC #### [facility] [address] [place] [address] Dr. Mike Ball MCV (RBC) [Entitic vol] 89.8 fL Normal 81.0-99.0 [facility] Comment on above: Performed By: #### C BC #### [facility] [address] [place] [address] Dr. Mike Ball MONO # 0.7 103/ul Normal 0.3-0.8 [facility] Comment on above: Performed By: #### C BC #### [facility] [address] [place] [address] Dr. Mike Ball Monocytes/100 WBC (Bld) 8.6 % Normal 1.7-12.0 [facility] Comment on above: Performed By: #### C BC #### [facility] [address] [place] [address] Dr. Mike Ball NEUT # 4.6 103/ul Normal 1.4-6.5 [facility] Comment on above: Performed By: #### C BC #### [facility] [address] [place] [address] Dr. Mike Ball Neutrophils/100 WBC (Bld) 56.9 % Normal 43.0-75.0 [facility] Comment on above: Performed By: #### C BC #### [facility] [address] [place] [address] Dr. Mike Ball Platelet mean volume (Bld) [Entitic vol] 10.7 fL Normal 9.5-13.5 [facility] Comment on above: Performed By: #### C BC #### [facility] [address] [place] [address] Dr. Mike Ball PLT 276 103/ul Normal 150-450 [facility] Comment on above: Performed By: #### C BC #### [facility] [address] [place] [address] Dr. Mike Ball RBC 4.81 106/ul Normal 4.20-5.40 [facility] Comment on above: Performed By: #### C BC #### [facility] [address] [place] [address] Dr. Mike Ball WBC 8.1 103/ul Normal 4.0-11.0 [facility] Comment on above: Performed By: #### C BC #### [facility] [address] [place] [address] Dr. Mike Ball GLYCOHEMOGLOBIN A1Con 2021 ADA RECOMMENDATION SEE BELOW Normal [facility] Comment on above: Result Comment: ADA RECOMMENDED LIMIT 4.0 - 6.0 ADA THERAPEUTIC TARGET < 7.0 ACTION SUGGESTED > 7.0 Performed By: #### A 1C #### [facility] [address] [place] [address] Dr. Mike Ball Glucose [Mass/Vol] 128 mg/dL Normal [facility] Comment on above: Performed By: #### A 1C #### [facility] [address] [address] [address] Mike Ball HbA1c (Bld) [Mass fraction] 6.1 % Normal 4.5-6.2 [facility] Comment on above: Performed By: #### A 1C #### [facility] [address] [place] [address] Dr. Mike Ball LIPID PROFILEon 11-09-2022 CHOL-HDL RATIO NORM SEE BELOW Normal [facility] Comment on above: Result Comment: 3.3 - 4.4 LOW RISK 4.4 - 7.1 AVERAGE RISK 7.1 - 11.0 MODERATE RISK >11.0 HIGH RISK Performed By: #### C MP, LIPID, TSH #### [facility] [address] [place] [address] Dr. Mike Ball Cholesterol [Mass/Vol] 150 mg/dL Normal <=200 [facility] Comment on above: Performed By: #### C MP, LIPID, TSH #### [facility] [address] [place] [address] Dr. Mike Ball Cholesterol in HDL [Mass/Vol] 46 mg/dL Normal 40-60 [facility] Comment on above: Performed By: #### C MP, LIPID, TSH #### [facility] [address] [address] [address] Mike Ball Cholesterol in LDL [Mass/Vol] 89.6 mg/dL Normal [facility] Comment on above: Performed By: #### C MP, LIPID, TSH #### [facility] [address] [place] [address] Dr. Mike Ball Cholesterol.total/Ch olesterol in HDL [Mass ratio] 3.3 {ratio} Normal [facility] Comment on above: Performed By: #### C MP, LIPID, TSH #### [facility] [address] [address] [address] Mike Ball HDL NORMAL > or = 60 mg/dl - LOW CARDIOVASCULAR RISK <40 mg/dl - HIGH CARDIOVASCULAR RISK Normal [facility] Comment on above: Performed By: #### C MP, LIPID, TSH #### [facility] [address] [address] [address] Mike Ball LDL CALC NORMAL SEE BELOW Normal [facility] Comment on above: Result Comment: <100 mg/dl OPTIMAL 100 - 129 mg/dl NEAR OR ABOVE OPTIMAL 130 - 159 mg/dl BORDERLINE HIGH 160 - 189 mg/dl HIGH >190 mg/dl VERY HIGH Performed By: #### C MP, LIPID, TSH #### [facility] [address] [place] [address] Dr. Mike Ball Triglyceride [Mass/Vol] 72 mg/dL Normal <=150 [facility] Comment on above: Performed By: #### C MP, LIPID, TSH #### [facility] [address] [address] [address] Mike Ball VLDL CALC 14.4 mg/dL Normal [facility] Comment on above: Performed By: #### C MP, LIPID, TSH #### [facility] [address] [address] [address] Mike Ball PROF 14(COMP METB)on 022 Albumin [Mass/Vol] 4.1 g/dL Normal 3.4-5.[address] [facility] Comment on above: Performed By: #### C MP, LIPID, TSH #### [facility] [address] [address] [address] Mike Ball Albumin/Globulin [Mass ratio] 1.4 {ratio} Normal [facility] Comment on above: Performed By: #### C MP, LIPID, TSH #### [facility] [address] [address] [address] Mike Ball ALP [Catalytic activity/Vol] 63 U/L Normal 46-116 [facility] Comment on above: Performed By: #### C MP, LIPID, TSH #### [facility] [address] [address] [address] Mike Ball ALT [Catalytic activity/Vol] 22 U/L Normal 14-59 [facility] Comment on above: Performed By: #### C MP, LIPID, TSH #### [facility] [address] [address] [address] Mike Ball Anion gap [Moles/Vol] 9.0 mmol/L Normal [facility] Comment on above: Performed By: #### C MP, LIPID, TSH #### [facility] [address] [address] [address] Mike Ball AST [Catalytic activity/Vol] 18 U/L Normal 15-37 [facility] Comment on above: Performed By: #### C MP, LIPID, TSH #### [facility] [address] [address] [address] Mike Ball Bilirubin [Mass/Vol] 0.5 mg/dL Normal 0.2-1.0 [facility] Comment on above: Performed By: #### C MP, LIPID, TSH #### [facility] [address] [address] [address] Mike Ball Calcium [Mass/Vol] 9.2 mg/dL Normal 8.5-10.[address] [facility] Comment on above: Performed By: #### C MP, LIPID, TSH #### [facility] [address] [address] [address] Mike Ball Chloride [Moles/Vol] 102 mmol/L Normal 98-107 [facility] Comment on above: Performed By: #### C MP, LIPID, TSH #### [facility] [address] [address] [address] Mike Ball CO2 [Moles/Vol] 33.6 mmol/L Critically high 21.0-32.0 [facility] Comment on above: Performed By: #### C MP, LIPID, TSH #### [facility] [address] [address] [address] Mike Ball Creatinine [Mass/Vol] 0.71 mg/dL Normal 0.55-1.02 [facility] Comment on above: Performed By: #### C MP, LIPID, TSH #### [facility] [address] [place] [address] Dr. Mike Ball EGFR-AF HAITIAN >60 Normal >=60 [facility] Comment on above: Performed By: #### C MP, LIPID, TSH #### [facility] [address] [address] [address] Mike Ball EGFR-NON AF HAITIAN >60 Normal >=60 [facility] Comment on above: Performed By: #### C MP, LIPID, TSH #### [facility] [address] [place] [address] Dr. Mike Ball Globulin (S) [Mass/Vol] 2.9 g/dL Normal [facility] Comment on above: Performed By: #### C MP, LIPID, TSH #### [facility] [address] [place] [address] Dr. Mike Ball Glucose [Mass/Vol] 120 mg/dL Critically high 74-106 [facility] Comment on above: Performed By: #### C MP, LIPID, TSH #### [facility] [address] [place] [address] Dr. Mike Ball Potassium [Moles/Vol] 3.6 mmol/L Normal 3.5-5.1 [facility] Comment on above: Performed By: #### C MP, LIPID, TSH #### [facility] [address] [place] [address] Dr. Mike Ball Protein [Mass/Vol] 7.0 g/dL Normal 6.4-8.[address] [facility] Comment on above: Performed By: #### C MP, LIPID, TSH #### [facility] [address] [place] [address] Dr. Mike Ball Sodium [Moles/Vol] 141 mmol/L Normal 136-[address] [facility] Comment on above: Performed By: #### C MP, LIPID, TSH #### [facility] [address] [place] [address] Dr. Mike Ball Urea nitrogen [Mass/Vol] 21.0 mg/dL Critically high 7.0-18.0 [facility] Comment on above: Performed By: #### C MP, LIPID, TSH #### [facility] [address], [place] [address] Dr. Mike Ball Urea nitrogen/Creatinine [Mass ratio] 29.6 mg/mg Normal [facility] Comment on above: Performed By: #### C MP, LIPID, TSH #### [facility] [address] [place], [place] [address] Dr. Mike Ball TSHon 11-09-2022 TSH 0.294 uIU/mL Critically low 0.358-3.740 [facility] Comment on above: Performed By: #### C MP, LIPID, TSH #### [facility] [address] [address] [address] Mike Ball MG MAMM SCREEN 3D PETAR CADon 09-10-2022 MG MAMM SCREEN 3D PETAR CAD Patient: ROBYN TAI Exam Date: 09/10/2022 : 1955 Gender:F Ordering : DR FLORENCIA WOLF M.D. Admission #: [id number] Family : Order #: [id number] CLICK HERE TO VIEW EXAM RADIOLOGY REPORT [...] skin cancer at age 72. LOCATION: [facility] BREAST COMPOSITION: Heterogeneously dense,which may obscure [...] MD on 09/10/2022 at 11:53 Normal [facility] Cardiovascular Lab Reporton 11-06-2019 Cardiovascular Lab Report [facility] Patient Name: [facility] Robyn He MR #: [id number] Department of Physician: Louis Miranda M.D. Division of Service Date: 11/05/2019 Cardiology Birthdate: 1955 Adult Cardiovascular Room #: [facility] [address] [facility] [place] [id number] Cardiovascular Laboratory Report FINAL IMPRESSIONS: 1. Mild coronary artery disease. 2. Moderately reduced global left ventricular systolic function. 3. Nkne-ft-gfocbuoy mitral regurgitation. 4. Mildly elevated right-sided heart [...] up with Dr. Schilling/Dr. Patterson in the [facility]. 6. Follow up with Dr. Florencia Wolf as scheduled. PROCEDURES: Right heart catheterization, bilateral selective coronary angiography, left heart catheterization, left ventriculography, limited femoral angiography, placement of a 6-M[place] MynxGrip closure device. METHODS: After risks, benefits, and alternatives were explained, written informed consent was obtained. The patient was prepped and draped in the usual sterile fashion over the right groin. Using 1% lidocaine solution, local infiltration anesthesia was achieved. Using a modified Seldinger technique, micropuncture kit, access to the right common femoral vein and artery was obtained. A 6-Marshallese 11 cm sheath was placed in each. Baseline femoral angiography was performed via the inner cannula of a micropuncture kit prior to up sizing to a 6-Marshallese sheath. Right heart catheterization was performed using [...] was elected to conclude the procedure. A 6-Marshallese MynxGrip closure device was deployed per protocol [...] P Benitez Patterson M.D. Date Dict: 11/05/2019/01:53 P/Benitez Patterson M.D. Date Trans: 11/06/2019 06:49 A/evelino [id number] cc: Florencia Wolf M.D. [address] [facility] [address] Girish Schilling M.[address]. [address] [facility] [address] Normal [facility] BASIC METABOLIC PANELon 12-0 Calcium [Mass/Vol] 7.4 mg/dL Low 8.6-10.3 [facility] Comment on above: Performed By: #### 0 [id number] #### [facility] [address] [place] [address], [facility] Chloride [Moles/Vol] 110 mmol/L High 98-107 [facility] Comment on above: Performed By: #### 0 [id number] #### [facility] [address] [place] [address], [place] CO2 [Moles/Vol] 24 mmol/L Normal 21-31 The [facility] Comment on above: Performed By: #### 0 [id number] #### [facility] [address] [place] [address], [facility] Creatinine [Mass/Vol] 0.50 mg/dL Low 0.60-1.20 [facility] Comment on above: Performed By: #### 0 [id number] #### [facility] [address] [place] [address], [place] GFR/1.73 sq M predicted among blacks MDRD (S/P/Bld) [Vol rate/Area] mL/min/{1.73_m2} Normal >60 [facility] Comment on above: Performed By: #### 0 [id number] #### [facility] [address] [place] [address], [place] GFR/1.73 sq M predicted among non-blacks MDRD (S/P/Bld) [Vol rate/Area] mL/min/{1.73_m2} Normal >60 [facility] Comment on above: Performed By: #### 0 [id number] #### [facility] [address] [place] [address], [place] Glucose [Mass/Vol] 75 mg/dL Normal 70-100 [facility] Comment on above: Performed By: #### 0 0071 #### [facility] [address] [place] [address], [place] Potassium [Moles/Vol] 2.7 mmol/L Low 3.5-5.1 [facility] Comment on above: Performed By: #### 0 0071 #### [facility] [address] [place] [address], [place] Sodium [Moles/Vol] 141 mmol/L Normal 136-145 [facility] Comment on above: Performed By: #### 0 [id number] #### [facility] [address] [place] [address], [place] Urea nitrogen [Mass/Vol] 16 mg/dL Normal 7-25 [facility] Comment on above: Performed By: #### 0 [id number] #### [facility] [address] [place] [address], [place] Vital Signs Date Time Vital Sign Value Performing Clinician Facility 12-16-2023 16:05-0500 Body height 157.48 cm Florencia Wolf Other [facility] Other 11-18-2023 14:00-0500 Body height 157.48 cm Florencia Wolf Other [facility] Other 11-18-2023 14:00-0500 Body mass index (BMI) [Ratio] 28.82 kg/m2 Florencia Wolf Other [facility] Other 11-18-2023 14:00-0500 Body temperature 96.8 [degF] Florencia Wolf Other [facility] Other 11-18-2023 14:00-0500 Body weight 71.49 kg Florencia Wolf Other [facility] Other 11-18-2023 14:00-0500 Diastolic blood pressure 72 mm[Hg] Florencia Wolf Other [facility] Other 11-18-2023 14:00-0500 Systolic blood pressure 130 mm[Hg] Florencia Wolf Other [facility] Other Encounters Encounter Date Encounter Type Care Provider Facility Start: 01-06-2025 End: 01-06-2025 ambulatory AB [facility] Start: 06-17-2024 End: 06-17-2024 ambulatory MENDOZA [facility] Start: 12-16-2023 End: 12-16-2023 ambulatory Florencia Wolf Other [facility] Other Start: 12-16-2023 Telephone encounter Florencia Wolf [facility] Start: 11-28-2023 End: 11-28-2023 ambulatory Florencia Wolf Other [facility] Other Start: 11-28-2023 Telephone encounter Florencia Wolf [facility] Start: 11-18-2023 End: 11-18-2023 ambulatory Florencia Wolf Other [facility] Other Start: 11-18-2023 Encounter for genera l adult medical examination without abnormal findings Florencia Wolf [facility] Start: 11-18-2023 Periodic preventive med est patient 65yrs& older Florencia Wolf [facility] Start: 09-11-2023 End: 09-11-2023 ambulatory Florencia Wolf Other [facility] Other Start: 09-11-2023 Telephone encounter Florencia Wlof [facility] Start: 07-10-2023 End: 07-10-2023 ambulatory Boo Walker Other [facility] Other Start: 07-10-2023 Telephone encounter Boo Walker [facility] Start: 06-18-2023 End: 06-18-2023 ambulatory Boo Walker Other [facility] Other Start: 06-18-2023 Telephone encounter Boo Walker [facility] Start: 06-14-2023 End: 06-14-2023 ambulatory Boo Walker Other [facility] Other Start: 06-14-2023 Telephone encounter Boo Walker [facility] Start: 06-07-2023 End: 06-07-2023 ambulatory Florencia Wolf Other [facility] Other Start: 06-07-2023 Nursing evaluation o f patient and report Florencia Wolf [facility] Start: 03-28-2023 End: 03-29-[address] BOO WALKER Facility:[facility] Start: 12-12-2022 ambulatory FRAN ASHTON Facility:[facility] Start: 11-19-2022 End: 11-20-[address] HORACIO ROO Facility:[facility] Start: 11-13-2022 Adult health examination Boo Walker Other [facility] Other Start: 11-12-2022 Encounter for genera l adult medical examination without abnormal findings DR FLORENCIA WOLF [facility] Start: 11-09-2022 End: 11-10-[address] FLORENCIA WOLF Facility:[facility] Start: 11-09-2022 End: 11-10-2022 Encounter for general adult medical examination without abnormal findings DR FLORENCIA WOLF Facility: Start: 10-05-2022 End: 10-06-[address] LILIYA PONCE . Facility:[facility] Start: 09-10-2022 End: 09-11-[address] FLORENCIA WOLF Facility: Start: 11-05-2019 End: 11-06-2019 Patient encounter procedure EHAB A REMYGRISELDACHEYENNE Facility:[facility] Start: 10-06-2019 Problem, abnormal examination Boo Walker Other [place] Other Procedures Date Procedure Procedure Detail Performing Clinician Start: 04-08-2014 General examination of patient Boo Walker Other Screening for malign ant neoplasm of breast Boo Walker Other Immunizations Immunization Date Immunization Notes Care Provider Miguel kirk 03-25-2023 Shingrix 50 MCG/0.5M L; Translations: [Shingrix 50 MCG/0.5ML] Florencia Wolf Other [place] Other Payers Date Payer Category Payer Unknown [id number] 2019 Unknown [id number] 1957 Self-pay [id number] 1957 Unknown [id number] [id number] 1957 Unknown [id number] 2.16.84 [id number] 1957 Unknown [id number] 2.16.84 [id number] 1957 Unknown [id number] 2.16.84 [id number] 1957 Unknown [id number] 2.16.84 [id number] 1957 Unknown [id number] 2.16.84 [id number] Unknown [id number] Unknown [id number] 2.16.84 [id number] Social History Date Type Detail Facility Sex Assigned At [facility] Other Clinical Notes 06-07-2023 to 01-06-2025 Note Date & Type Note Facility 01-06-2025 Note Cardiovascular Medic [facility] SUBJECTIVE Patient here for 6 mo follow up CAD, diastolic dysfunction, hypertension, and valve disease. She had stress test and echo in Jul 2024 after last apt in June. Taking aspirin every other day now. Denies chest pain Robyn Tai is a 69 y.o. female here for follow-up. HPI PMHx of HFrEF, NICM (viral), mild CAD per 11/2019 cath, diastolic dysfunction, MR, HTN, anxiety. 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 She has intermittent dizziness, warmer humid weather makes it worse. She stays active at her job, no other exercise regimen. She denies c/o CP, orthopnea, PND, LE edema, palpitations. Update 01/06/2025: Doing well; no new cardiovascular symptoms Patient Active Problem List Diagnosis Coronary atherosclerosis Diastolic dysfunction Essential hypertension Generalized anxiety disorder Mitral valve regurgitation Systolic heart failure (CMS/HCC) Past Medical History: Diagnosis Date CHF (congestive heart failure) (CMS/HCC) Coronary artery disease Diastolic dysfunction Heart valve disease Hypertension No family history on file. Social History Tobacco Use Smoking status: Every Day Types: Cigarettes Smokeless tobacco: Never No Known Allergies Review of Systems Cardiovascular: Positive for dyspnea on exertion. All other systems reviewed and are negative. OBJECTIVE Visit Vitals Smoking Status Every Day Medications: Current Outpatient Medications: aspirin 81 mg EC tablet, Take 1 tablet every day by oral route., Disp: , Rfl: atorvastatin (Lipitor) 40 mg tablet, TAKE 1 TABLET BY MOUTH EVERY DAY IN THE MORNING, Disp: 90 tablet, Rfl: 3 carvedilol (Coreg) [...] EVERY DAY, Disp: 90 tablet, Rfl: 3 BP 110/70 (BP Location: Left arm, Patient Position: Sitting) Pulse 72 Ht 1.575 m (5' 2 ) Wt 72.1 kg (159 lb) SpO2 95% BMI 29.08 kg/m??? Physical Exam Vitals reviewed. Constitutional: Appearance: Normal [...] PVCs. Heart rate average of 80 bpm. Stress test 07/09/2024: Breast attenuation artifact, no reversible ischemia, normal exercise test (more content not included)... [facility] 06-17-2024 Note Cardiovascular Medic [facility] SUBJECTIVE Chief Complaint Patient presents with Follow-up 6 month follow up Robyn Tai is a 68 y.o. female here for follow-up. HPI PMHx of HFrEF, NICM (viral), mild CAD per 11/2019 cath, diastolic dysfunction, MR, HTN, anxiety. 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 Coronary (more content not included)... [facility] 11-29-2023 History general N arrative - [...] surgical procedures, hx of, Problem Comment : [facility] 1996 - dysmenorrhea - BSO and Appy B upper blepharoplasty Colonoscopy 2010 - hyperplastic polyp, Problem Status : Active, Surgical History 2: 06/2018 - Stepanic, Problem S tatus : Active, Surgical History 1: Problem Title : s urgical procedures, hx of, Problem Description : surgical procedures, hx of, Problem Comment : [facility] 1996 - dysmenorrhea - BSO and Appy B upper blepharoplasty Colonoscopy 2010 - hyperplastic polyp R knee arthroscopic surgery Surgical History 2: 06/2018, Problem Status : Andrzej yarbrough, [place] Other 12-28-2023 Evaluation note* Encounter Date Diagnosis Assessment Notes Treatment Notes Treatment Clinical Notes Nov, Acute cystitis without hematuria (ICD-10 - N30.00) [facility] Other 12-22-2023 History general Narrative - Reported* [...] surgical procedures, hx of, Problem Comment : [facility] 1996 - dysmenorrhea - BSO and Appy B upper blepharoplasty Colonoscopy 2010 - hyperplastic polyp, Problem Status : Active, Surgical History 2: 06/2018 - Stepanic, Problem S tatus : Active, Surgical History 1: Problem Title : s urgical procedures, hx of, Problem Description : surgical procedures, hx of, Problem Comment : [facility] 1996 - dysmenorrhea - BSO and Appy B upper blepharoplasty Colonoscopy 2010 - hyperplastic polyp R knee arthroscopic surgery Surgical History 2: 06/2018, Problem Status : Act linnea, [place] Other 12-18-2023 Evaluation note* Encounter Date Diagnosis [...] or operate machinery while taking this medication. [facility] Other 10-11-2023 Evaluation note* Encounter Date Diagnosis Assessment Notes Treatment Notes Treatment Clinical Notes Sep, Screening mammogram, encounter for (ICD-10 - Z12.31) [place] Other 07-14-2023 Evaluation note* Encounter Date Diagnosis Assessment Notes Treatment Notes Treatment Clinical Notes Jun, Acute cystitis with hematuria (ICD-10 - N30.01) [facility] Other 07-14-2023 Evaluation note* Encounter Date Diagnosis Assessment Notes Treatment Notes Treatment Clinical Notes Jun, Acute cystitis without hematuria (ICD-10 - N30.00) [place] Other 07-07-2023 Evaluation note* Encounter Date Diagnosis Assessment Notes Treatment Notes Treatment Clinical Notes Jun, Acute cystitis with hematuria (ICD-10 - N30.01) [place] Other Evaluation noteNo [employer] Other History general Narrative - Reported* Type Description Date Surgical History Problem Title : past surgical history reviewed, Problem Description : past surgical history reviewed, Problem Comment : reviewed - no changes required, Problem Status : Active, Surgical History Problem Title : surg ical procedures, hx of, Problem Description : surgical procedures, hx of, Problem Comment : [facility] 1996 - dysmenorrhea - BSO and Appy B upper blepharoplasty Colonoscopy 2010 - hyperplastic polyp, Problem Status : Active, Surgical History 2: 06/2018 - Stepanic, Problem S tatus : Active, Surgical History 1: Problem Title : s urgical procedures, hx of, Problem Description : surgical procedures, hx of, Problem Comment : [facility] 1996 - dysmenorrhea - BSO and Appy B upper blepharoplasty Colonoscopy 2010 - hyperplastic polyp R knee arthroscopic surgery Surgical History 2: 06/2018, Problem Status : Act linnea, [place] Other History general Narrative - Reported* Type Description Date Medical History hypertension Medical History anxiety Medical History insomnia Medical History hypertriglyceridemia Medical History GERD Surgical History Hysterectomy 1996 Surgical History Bilateral Salpingo oophorectomy Surgical History Blepharoplasty Surgical History Colonoscopy [facility] Other Summary Purpose Family History No Family History Records FoundNo Family History Records FoundNo Family History Records Found Advance Directives No Advanced Directives Records FoundNo Advanced Directives Records FoundNo Advanced Directives Records Found Additional Source Comments INFORMATION SOURCE (unrecogn ized section and content) DATE CREATED AUTHOR 03/29/2020 [facility] DATE CREATED AUTHOR AUTHOR'S ORGANIZ ATION 04/04/2023 [facility] DATE CREATED AUTHOR AUTHOR'S ORGANIZ ATION 01/08/2025 [facility] REASON FOR VISIT (unrecogniz ed [...] BE BASED ON THE PRIMARY CLINICAL RECORDS. [employer] provides no warranty or guarantee of the accuracy or completeness of information in this document.
[2025-01-11 07:17] LABS: Basophils Absolute Auto 0.1 10^3/uL (0.0-0.1); Basophils Percent Auto 0.5 % (0.2-2.0); Eosinophils Absolute Auto 0.5 10^3/uL (0.0-0.7); Eosinophils Percent Auto 4.7 % (0.9-7.0); Hematocrit 44.5 % (36.0-48.0); Hemoglobin 15.3 g/dL (12.0-16.0); Immature Granulocytes Abs Auto 0.02 10^3/uL (0.00-0.03); Immature Granulocytes Pct Auto 0.2 % (0.0-0.5); Lymphocytes Absolute Auto 2.5 10^3/uL (1.2-3.8); Lymphocytes Percent Auto 24.5 % (20.5-60.0); Mean Corpuscular HGB Conc 34.4 g/dL (29.9-35.2); Mean Corpuscular Hemoglobin 31.6 pg (26.7-34.0); Mean Corpuscular Volume 91.9 fL (81.0-99.0); Mean Platelet Volume 10.2 fL (9.5-13.5); Monocytes Absolute Auto 0.8 10^3/uL (0.3-0.8); Monocytes Percent Auto 7.4 % (1.7-12.0); Neutrophils Absolute Auto 6.5 10^3/uL (1.4-6.5); Neutrophils Percent Auto 62.7 % (43.0-75.0); Platelet Count 308 10^3/uL (150-450); Red Blood Count 4.84 10^6/uL (4.20-5.40); Red Cell Distribution Width 12.5 % (11.0-15.0); White Blood Count 10.3 10^3/uL (4.0-11.0)
[2025-01-11 07:56] LABS: Estimated Average Glucose 126 mg/dL
[2025-01-11 07:57] LABS: Chol HDL Ratio 3.4; Cholesterol 136 mg/dL (<=200); HDL Cholesterol 40 mg/dL (40-60); LDL Cholesterol Calculated 74.6 mg/dL; Thyroid Stimulating Hormone 0.291 uIU/mL (0.358-3.740); Triglycerides 107 mg/dL (<=150); VLDL CHOLESTEROL 21.4 mg/dL
== END 2025-01-11 07:03 | disposition home or self-care (01) ==
LOC: LAB 07:02
PROVIDERS: PCP Family Medicine; Visit Provider Family Medicine
DX: Z00.00 Encounter for general adult medical examination without abnormal findings (principal)
CPT/HCPCS: 36415; 80061; 83036; 84443; 85025

== ENCOUNTER 2025-04-12 06:58 | Outpatient (OUT) | payer BC, SELFPAY ==
--- OUTSIDE RECORDS SUMMARY | 2025-04-12 07:01 | XMS_ITS | CCD ---
Author Organization [facility] Care Team Providers Care Chemistry Quality Control Analyst Name Role Phone BENITEZ PATTERSON Admitting Unavailable BENITEZ PATTERSON Attending Unavailable FLORENCIA WOLF Primary Care Unavailable SHAKIR, GIRISH Ribeiro Referring Unavailable WOLF, DR FLORENCIA [place] Primary Care Unavailable WOLF, DR FLORENCIA [place] Attending Unavailable WOLF, DR FLORENCIA [place] Admitting Unavailable WEST, DR SHEELA [employer] Unavailable WOLF, DR FLORENCIA [place] Consulting Unavailable HOLeatha ., DR LOVELL Consulting Unavailable HOY ., DR LOVELL Attending Unavailable WOLF, DR FLORENCIA [place] Primary Care Unavailable JEEVANY ., DR LOVELL Admitting Unavailable BALL, DR [...] physicia Propensity to adverse reactions 4 Comment:Done [employer] Other (2 sources) Allergies Reconciled Propensity to adverse reactions Unknown [employer] Other Medications Current Medications Medication Drug Class(es) Dates Sig (Normalized) Sig (Original) aspirin 81 mg delayed release oral tablet (1 source) Platelet Aggregation Inhibitor, Nonsteroidal Anti-inflammatory Drug Start: 01-13-2025 Aspirin (Adult Low Dose Aspirin) 81 mg tablet,delayed release (DR/EC) Active 81 MG PO Daily January 13, 2025 12:00am atorvastatin 40 mg oral tablet (1 source) HMG-CoA Reductase Inhibitor Start: 01-13-2025 take 1 tablet by mouth once daily Atorvastatin 40 mg tablet Active 40 MG PO Daily January 13, 2025 12:00am azithromycin 250 mg oral tablet (4 sources) Macrolide Antimicrobial Start: 11-18-2023 Azithromycin 250 MG as directed Orally 2 tabs po today, then 1 tab daily x 4 more days for 5 Nov, Active busPIRone hydrochloride 5 mg oral tablet (1 source) Start: 01-13-2025 take 1 tablet by mouth twice daily as needed for anxiety Buspirone 5 mg tablet Active 5 MG PO Twice daily as needed for anxiety January 13, 2025 12:00am carvedilol 6.25 mg oral tablet (5 sources) alpha-Adrenergic Darius, beta-Adrenergic Darius Start: 01-13-2025 take 1 tablet by mouth twice daily Carvedilol 6.25 mg tablet Active 6.25 MG PO Twice daily January 13, 2025 12:00am FreeTextSi tablet twice a day; Note: Source Status: Taking; Provider: Saeed Don ( ) take 1 tablet by marily th every twelve hours Carvedilol 6.25 MG 1 tablet twice a day Active ciprofloxacin 250 mg oral tablet (3 sources) Quinolone Antimicrobial Start: 06-14-2023 take 1 tablet by mouth every twelve hours Cipro 250 MG 1 tablet Orally every 12 hrs for 7 days Jun, Active fenofibrate 160 mg oral tablet (13 sources) Peroxisome Proliferator Receptor alpha Agonist Start: 01-13-2025 End: 01-13-2025 take 1 tablet by mouth once daily Fenofibrate 160 mg tablet Active 160 MG PO Daily January 13, 2025 11:09am FreeTextSig: TAKE 1 TABLET BY MOUTH EVERY DAY; Note: Source Status: Taking; Refills: 3; Qty: 90 Tablet; Provider: Saeed Don ( ) take 1 tablet by mouth once shelby y Fenofibrate 160 MG TAKE 1 TABLET BY MOUTH EVERY DAY for 90 Active hydroCHLOROthiazide 25 mg oral tablet (14 sources) Thiazide Diuretic Start: 04-06-2024 End: 10-01-2024 take 1 tablet by mouth once daily Hydrochlorothiazide 25 mg tablet Active 0 .ROUTE .COMPLEX 90 October 01, 2024 7:29am TAKE 1 TABLET BY MOUTH EVERY DAY Start: 04-03-2024 End: 04-06-2024 take 1 tablet by mouth once daily Hydrochlorothiazide 25 mg tablet Discontinued 25 MG PO Daily April 02, 2024 11:00pm April 06, 2024 7:38am take 1 tablet by marily once daily hydroCHLOROthiazide 25 MG TAKE 1 TABLET BY MOUTH EVERY DAY for 90 Active lansoprazole 30 mg delayed release oral capsule (13 sources) Proton Pump Inhibitor Start: 01-13-2025 take 1 capsule by mouth once daily Lansoprazole 30 mg capsule,delayed release(DR/EC) Active 0 .ROUTE .COMPLEX January 13, 2025 11:07am TAKE 1 CAPSULE BY MOUTH EVERY DAY Start: 04-03-2024 End: 04-03-2024 take 1 capsule by mouth once daily Lansoprazole 30 mg capsule,delayed release(DR/EC) Discontinued 30 MG PO Daily April 02, 2024 11:00pm April 03, 2024 1:40pm take 1 capsule by mo [facility] once daily Lansoprazole 30 MG TAKE 1 CAPSULE BY MOUTH EVERY DAY for 90 Active lisinopril 10 mg oral tablet (5 sources) Angiotensin Converting Enzyme Inhibitor Start: 01-13-2025 take 1 tablet by mouth once daily Lisinopril 10 mg tablet Active 10 MG PO January 13, 2025 12:00am FreeTextSitablet once a day; Note: Source Status: Taking; Provider: Saeed Don ( ) Lisinopril 10 MG 1tablet once a day Active loratadine 10 mg oral tablet (13 sources) Start: 01-13-2025 End: 01-13-2025 take 1 tablet by mouth once daily as needed Loratadine 10 mg tablet Active 10 MG PO .prn January 13, 2025 10:38am FreeTextSig: TAKE 1 TABLET BY MOUTH EVERY DAY; Note: Source Status: Taking; Refills: 3; Qty: 90 Tablet; Provider: Saeed oDn ( ) take 1 tablet by mouth once shelby y Loratadine 10 MG TAKE 1 TABLET BY MOUTH EVERY DAY for 90 Active nitrofurantoin, macrocrystals 25 mg / nitrofurantoin, monohydrate 75 mg oral capsule (3 sources) Nitrofuran Antibacterial Start: 06-19-2023 take 1 capsule by mouth every twelve [...] Twice a day for 5 days Active Completed/Discontinued Medications Medication Drug Class(es) Dates Sig (Normalized) Sig (Original) ALPRAZolam 0.25 mg oral tablet (6 sources) Benzodiazepine Start: 01-13-2025 End: 01-13-2025 take 1 tablet by mouth twice daily as needed Alprazolam 0.25 mg tablet Discontinued 0.25 MG PO .prn January 13, 2025 10:36am January 13, 2025 11:12am FreeTextSi tablet Orally Twice a day prn; Note: Source Status: Taking; Refills: 0; Provider: Saeed [place] Start: 11-18-2023 take 1 tablet by marily th twice daily as needed ALPRAZolam 0.25 MG 1 tablet Orally Twice a day prn for 30 days Nov, Active Lansoprazole 30 mg capsule,delayed release(DR/EC) (3 sources) Start: 09-25-2024 End: 01-13-2025 take 1 capsule by mouth once daily Lansoprazole 30 mg capsule,delayed release(DR/EC) Discontinued 0 .ROUTE .COMPLEX September 25, 2024 7:15pm January 13, 2025 11:09am TAKE 1 CAPSULE BY MOUTH EVERY DAY Start: 06-29-2024 End: 09-25-2024 take 1 capsule by mouth once daily Lansoprazole 30 mg capsule,delayed release(DR/EC) Discontinued 0 .ROUTE .COMPLEX June 29, 2024 1:53pm September 25, 2024 7:15pm TAKE 1 CAPSULE BY MOUTH EVERY DAY Start: 04-03-2024 End: 06-29-2024 take 1 capsule by mouth once daily Lansoprazole 30 mg capsule,delayed release(DR/EC) Discontinued 0 .ROUTE .COMPLEX 90 April 03, 2024 1:40pm June 29, 2024 1:53pm TAKE 1 CAPSULE BY MOUTH EVERY DAY Problems Active Problems Problem Classification Problem Date Documented Date Episodic/Chronic Anxiety disorders (12 sources) Anxiety disorder; Translations: [Other specified anxiety disorders] Chronic Congestive heart failure; nonhypertensive (2 sources) Chronic systolic (congestive) heart failure; Translations: [Chronic systolic (congestive) heart failure] Onset: 11-15-2023 Chronic Coronary atherosclerosis and other heart disease (2 sources) Atherosclerotic heart disease of enterprise coronary artery without angina pectoris; Translations: [Atherosclerotic heart disease of enterprise coronary artery without angina pectoris] Onset: 01-06-2025 [...] conditions (not mental disorders or infectious disease) (17 sources) Other specified abnormal findings of blood [...] Test Name Value Interpretation Reference Range Facility Basophils Auto (Bld) [#/Vol] on 01-11-2025 Basophils (Bld) [#/Vol] Automated basophil count 0.0-0.1 [facility] Basophils/100 WBC Auto (Bld) on 01-11-2025 Basophils/100 WBC (Bld) Automated basophil % 0.2-2.0 [facility] Cholesterol in LDL Calc [Mas s/Vol]on 01-11-2025 Cholesterol in LDL [Mass/Vol] Cholesterol in LDL [Mass/volume] in Serum or Plasma by calculation [facility] Comment on above: <100 mg/dl [id number] 0-129 mg/dl NEAR OR ABOVE UPINEMO122-272 mg/dl BORDERLINE [id number] mg/dl HIGH>190 mg/dl VERY HIGH Cholesterol in VLDL Calc [Ma ss/Vol]on 01-11-2025 Cholesterol in VLDL [Mass/Vol] Cholesterol in VLDL [Mass/volume] in Serum or Plasma by calculation [facility] Eosinophils/100 WBC Auto (Bl d)on 01-11-2025 Eosinophils/100 WBC (Bld) Automated eosinophil % 0.9-7.0 [facility] Erythrocyte distribution wid th Auto (RBC) [Ratio]on 01-11-2025 Erythrocyte distribution width (RBC) [Ratio] Erythrocyte distribution width [Ratio] by Automated count 11.0-15.0 [facility] Glucose mean value [Mass/vol ume] in Blood Estimated from glycated hemoglobinon 01-11-2025 Average glucose Estimated from glycated hemoglobin (Bld) [Mass/Vol] Glucose mean value [Mass/volume] in Blood Estimated from glycated hemoglobin [facility] Hematocrit Auto (Bld) [Volum e fraction]on 01-11-2025 Hematocrit (Bld) [Volume fraction] Hematocrit [Volume Fraction] of Blood by Automated count 36.0-48.0 [facility] Hemoglobin A1c percentageon 01-11-2025 HbA1c (Bld) [Mass fraction] Hemoglobin A1c percentage 4.5-6.2 [facility] Comment on above: ADA RECOMMENDED LIMI T 4.0 - 6.0ADA THERAPEUTIC TARGET < 7.0ACTION SUGGESTED> 7.0 Hemoglobin [Mass/volume] in Bloodon 01-11-2025 Hemoglobin (Bld) [Mass/Vol] Hemoglobin [Mass/volume] in Blood 12.0-16.0 [facility] Laboratory - Chemistry and C hemistry - challengeon 01-11-2025 Cholesterol [Mass/Vol] 136 mg/dL <=200 [facility] Cholesterol in HDL [Mass/Vol] 40 mg/dL 40-60 [facility] Comment on above: > or =60 mg/dl - LOW CARDIOVASCULAR RISK<40 mg/dl - HIGH CARDIOVASCULAR RISK Triglyceride [Mass/Vol] 107 mg/dL <=150 [facility] TSH Qn 0.291 m[IU]/L Low 0.358-3.740 [facility] Laboratory - Hematology and Cell countson 01-11-2025 Immature granulocytes/100 WBC (Bld) 0.2 % 0.0-0.5 [facility] Leukocytes [#/volume] correc braulio for nucleated erythrocytes in Blood by Automated counon 01-11-2025 WBC corrected for nucl RBC Auto (Bld) [#/Vol] Leukocytes [#/volume] corrected for nucleated erythrocytes in Blood by Automated coun 4.0-11.0 [facility] Lymphocytes Auto (Bld) [#/Vo l]on 01-11-2025 Lymphocytes (Bld) [#/Vol] Lymphocytes [#/volume] in Blood by Automated count 1.2-3.8 [facility] Lymphocytes/100 WBC Auto (Bl d)on 01-11-2025 Lymphocytes/100 WBC (Bld) Lymphocytes/100 leukocytes in Blood by Automated count 20.5-60.0 [facility] MCH Auto (RBC) [Entitic mass ]on 01-11-2025 MCH (RBC) [Entitic mass] MCH [Entitic mass] by Automated count 26.7-34.0 [facility] MCHC Auto (RBC) [Mass/Vol]on 01-11-2025 MCHC (RBC) [Mass/Vol] MCHC [Mass/volume] by Automated count 29.9-35.2 [facility] MCV Auto (RBC) [Entitic vol] on 01-11-2025 MCV (RBC) [Entitic vol] MCV [Entitic volume] by Automated count 81.0-99.0 [facility] Monocytes Auto (Bld) [#/Vol] on 01-11-2025 Monocytes (Bld) [#/Vol] Automated blood monocyte count 0.3-0.8 [facility] Monocytes/100 WBC Auto (Bld) on 01-11-2025 Monocytes/100 WBC (Bld) Automated monocyte % 1.7-12.0 [facility] Neutrophils Auto (Bld) [#/Vo l]on 01-11-2025 Neutrophils (Bld) [#/Vol] Neutrophils [#/volume] in Blood by Automated count 1.4-6.5 [facility] Neutrophils/100 WBC Auto (Bl d)on 01-11-2025 Neutrophils/100 WBC (Bld) Automated neutrophil % 43.0-75.0 [facility] No Panel Informationon 01-11 Eosinophils # (Auto) 0.5 10 3/uL 0.0-0.7 [facility] Immature Granulocyte # (Auto) 0.02 10 3/uL 0.00-0.03 [facility] Platelet mean volume Auto (B ld) [Entitic vol]on 01-11-2025 Platelet mean volume (Bld) [Entitic vol] Platelet mean volume [Entitic volume] in Blood by Automated count 9.5-13.5 [facility] Platelets Auto (Bld) [#/Vol] on 01-11-2025 Platelets (Bld) [#/Vol] Platelets [#/volume] in Blood by Automated count 150-450 [facility] RBC Auto (Bld) [#/Vol]on RBC (Bld) [#/Vol] Erythrocytes [#/volume] in Blood by Automated count 4.20-5.40 [facility] Serum or plasma total choles terol/high density lipoprotein (HDL) cholesterol mass shama 01-11-2025 Cholesterol.total/Ch olesterol in HDL [Mass ratio] Serum or plasma total cholesterol/high density lipoprotein (HDL) cholesterol mass rat [facility] Comment on above: 3.3 - 4.4 LOW RISK4. 4 - 7.1 AVERAGE RISK7.1 - 11.0 MODERATE RISK>11.0 HIGH RISK Office Visiton 01-06-2025 Follow-up visit [id number] Robyn Tai 1955 F Date Provider Department Center 01/06/2025 [place]-BENITEZ PATTERSON [facility] No family history on file Level of Service:51494 MO OFFICE/OUTPATIENT ESTABLISHED MOD MDM 30 MIN [facility] 36on 07-21-2024 36 LM on patient's VM with message from Marimar Urbina CNP. [facility] 36on 07-16-2024 36 Please let her know her stress test was negative. Her ECHO was also good, no significant changes. She has mild mitral regurg which has been stable compared to previous ECHOs. No objections for her to proceed with surgery if she decides to proceed with things. Thanks! [facility] 36on 07-15-2024 36 Patient had echo and stress test completed and they're scanned into media developer. Can you please review when you have time and let me know what you need for her? Thanks! [facility] Office Visiton 06-17-2024 Follow-up visit [id number] Robyn Tai 1955 F Date Provider Department Center 06/17/2024 166MENDOZA FAUST [facility] No family history on file Level of Service:97281 MO OFFICE/OUTPATIENT ESTABLISHED MOD [facility] 30 MIN Reason for Visit and Comments: Follow-up [134238] - 6 month follow up [facility] US THYROIDon 11-20-2022 US THYROID [...] Date: 2022-11-19 23:59 Normal [facility] CBC AUTO DIFFon 11-09-2022 BASO # 0.0 103/ul Normal 0.0-0.1 [facility] Comment on above: Performed By: #### C BC #### [facility] [address] [place] [address] Dr. Mike Ball Basophils/100 WBC (Bld) 0.2 % Normal 0.2-2.0 [facility] Comment on above: Performed By: #### C BC #### [facility] [address] [place] [address] Dr. Mike Ball EO # 0.3 103/ul Normal 0.0-0.7 [facility] Comment on above: Performed By: #### C BC #### [facility] [address] [place] [address] Dr. Mike Ball Eosinophils/100 WBC (Bld) 4.2 % Normal 0.9-7.0 [facility] Comment on above: Performed By: #### C BC #### [facility] [address] [place] [address] Dr. Mike Ball Erythrocyte distribution width (RBC) [Ratio] 12.5 % Normal 11.0-15.0 [facility] Comment on above: Performed By: #### C BC #### [facility] [address] [place] [address] Dr. Mike Ball Hematocrit (Bld) [Volume fraction] 43.2 % Normal 36.0-48.0 [facility] Comment on above: Performed By: #### C BC #### [facility] [address] [place] [address] Dr. Mike Ball Hemoglobin (Bld) [Mass/Vol] 14.6 g/dL Normal 12.0-16.0 [facility] Comment on above: Performed By: #### C BC #### [facility] [address] [place] [address] Dr. Mike Ball IG # 0.01 10e3/ul Normal 0.00-0.03 [facility] Comment on above: Performed By: #### C BC #### [facility] [address] [place] [address] Dr. Mike Ball IG % 0.1 % Normal 0.0-0.5 [facility] Comment on above: Performed By: #### C BC #### [facility] [address] [place] [address] Dr. Mike Ball LYMPH # 2.4 103/ul Normal 1.2-3.8 [facility] Comment on above: Performed By: #### C BC #### [facility] [address] [place] [address] Dr. Mike Ball Lymphocytes/100 WBC (Bld) 30.0 % Normal 20.5-60.0 [facility] Comment on above: Performed By: #### C BC #### [facility] [address] [place] [address] Dr. Mike Ball MANUAL DIFF REQ NO Normal [facility] Comment on above: Performed By: #### C BC #### [facility] [address] [place] [address] Dr. Mike Ball MCH (RBC) [Entitic mass] 30.4 pg Normal 26.7-34.0 [facility] Comment on above: Performed By: #### C BC #### [facility] [address] [place] [address] Dr. Mike Ball MCHC (RBC) [Mass/Vol] 33.8 g/dL Normal 29.9-35.2 [facility] Comment on above: Performed By: #### C BC #### [facility] [address] [place] [address] Dr. Mike Ball MCV (RBC) [Entitic vol] 89.8 fL Normal 81.0-99.0 [facility] Comment on above: Performed By: #### C BC #### [facility] [address] [place] [address] Dr. Mike Ball MONO # 0.7 103/ul Normal 0.3-0.8 [facility] Comment on above: Performed By: #### C BC #### [facility] [address] [place] [address] Dr. Mike Ball Monocytes/100 WBC (Bld) 8.6 % Normal 1.7-12.0 [facility] Comment on above: Performed By: #### C BC #### [facility] [address] [place] [address] Dr. Mike Ball NEUT # 4.6 103/ul Normal 1.4-6.5 [facility] Comment on above: Performed By: #### C BC #### [facility] [address] [place] [address] Dr. Mike Ball Neutrophils/100 WBC (Bld) 56.9 % Normal 43.0-75.0 [facility] Comment on above: Performed By: #### C BC #### [facility] [address] [place] [address] Dr. Mike Ball Platelet mean volume (Bld) [Entitic vol] 10.7 fL Normal 9.5-13.5 [facility] Comment on above: Performed By: #### C BC #### [facility] [address] [place] [address] Dr. Mike Ball PLT 276 103/ul Normal 150-450 [facility] Comment on above: Performed By: #### C BC #### [facility] [address] [place] [address] Dr. Mike Ball RBC 4.81 106/ul Normal 4.20-5.40 [facility] Comment on above: Performed By: #### C BC #### [facility] [address] [place] [address] Dr. Mike Ball WBC 8.1 103/ul Normal 4.0-11.0 [facility] Comment on above: Performed By: #### C BC #### [facility] [address] [place] [address] Dr. Mike Ball GLYCOHEMOGLOBIN A1Con 2021 ADA RECOMMENDATION SEE BELOW Normal [facility] Comment on above: Result Comment: ADA RECOMMENDED LIMIT 4.0 - 6.0 ADA THERAPEUTIC TARGET < 7.0 ACTION SUGGESTED > 7.0 Performed By: #### A 1C #### [facility] [address] [address] [address] Mike Ball Glucose [Mass/Vol] 128 mg/dL Normal [facility] Comment on above: Performed By: #### A 1C #### [facility] [address] [address] [address] Mike Ball HbA1c (Bld) [Mass fraction] 6.1 % Normal 4.5-6.2 [facility] Comment on above: Performed By: #### A 1C #### [facility] [address] [place] [address] Dr. Mike Ball LIPID PROFILEon 11-09-2022 CHOL-HDL RATIO NORM SEE BELOW Normal [facility] Comment on above: Result Comment: 3.3 - 4.4 LOW RISK 4.4 - 7.1 AVERAGE RISK 7.1 - 11.0 MODERATE RISK >11.0 HIGH RISK Performed By: #### C MP, LIPID, TSH #### [facility] [address] [place] [address] Dr. Mike Ball Cholesterol [Mass/Vol] 150 mg/dL Normal <=200 [facility] Comment on above: Performed By: #### C MP, LIPID, TSH #### [facility] [address] [place] [address] Dr. Mike Ball Cholesterol in HDL [Mass/Vol] 46 mg/dL Normal 40-60 [facility] Comment on above: Performed By: #### C MP, LIPID, TSH #### [facility] [address] [address] [address] Mike Ball Cholesterol in LDL [Mass/Vol] 89.6 mg/dL Normal [facility] Comment on above: Performed By: #### C MP, LIPID, TSH #### [facility] [address] [address] [address] Mike Ball Cholesterol.total/Ch olesterol in HDL [Mass ratio] 3.3 {ratio} Normal [facility] Comment on above: Performed By: #### C MP, LIPID, TSH #### [facility] [address] [address] [address] Mike Ball HDL NORMAL > or = 60 mg/dl - LOW CARDIOVASCULAR RISK <40 mg/dl - HIGH CARDIOVASCULAR RISK Normal [facility] Comment on above: Performed By: #### C MP, LIPID, TSH #### [facility] [address] [address] [address] Mike Ball LDL CALC NORMAL SEE BELOW Normal [facility] Comment on above: Result Comment: <100 mg/dl OPTIMAL 100 - 129 mg/dl NEAR OR ABOVE OPTIMAL 130 - 159 mg/dl BORDERLINE HIGH 160 - 189 mg/dl HIGH >190 mg/dl VERY HIGH Performed By: #### C MP, LIPID, TSH #### [facility] [address] [address] [address] Mike Ball Triglyceride [Mass/Vol] 72 mg/dL Normal <=150 [facility] Comment on above: Performed By: #### C MP, LIPID, TSH #### [facility] [address] [address] [address] Mike Ball VLDL CALC 14.4 mg/dL Normal [facility] Comment on above: Performed By: #### C MP, LIPID, TSH #### [facility] [address] [address] [address] Mike Ball PROF 14(COMP METB)on 022 Albumin [Mass/Vol] 4.1 g/dL Normal 3.4-5.0 [facility] Comment on above: Performed By: #### C MP, LIPID, TSH #### [facility] [address] [address] [address] Mike Ball Albumin/Globulin [Mass ratio] 1.4 {ratio} Normal [facility] Comment on above: Performed By: #### C MP, LIPID, TSH #### [facility] [address] [address] [address] Miek Ball ALP [Catalytic activity/Vol] 63 U/L Normal 46-116 [facility] Comment on above: Performed By: #### C MP, LIPID, TSH #### [facility] [address] [address] [address] Mike Ball ALT [Catalytic activity/Vol] 22 U/L Normal 14-59 [facility] Comment on above: Performed By: #### C MP, LIPID, TSH #### [facility] [address] [address] [address] Mike Ball Anion gap [Moles/Vol] 9.0 mmol/L Normal [facility] Comment on above: Performed By: #### C MP, LIPID, TSH #### [facility] [facility] [address] [place] [address] Dr. Mike Ball AST [Catalytic activity/Vol] 18 U/L Normal 15-37 [facility] Comment on above: Performed By: #### C MP, LIPID, TSH #### [facility] [address] [place] [address] Dr. Mike Ball Bilirubin [Mass/Vol] 0.5 mg/dL Normal 0.2-1.0 [facility] Comment on above: Performed By: #### C MP, LIPID, TSH #### [facility] [address] [place] [address] Dr. Mike Ball Calcium [Mass/Vol] 9.2 mg/dL Normal 8.5-10.1 [facility] Comment on above: Performed By: #### C MP, LIPID, TSH #### [facility] [address] [place] [address] Dr. Mike Ball Chloride [Moles/Vol] 102 mmol/L Normal 98-107 [facility] Comment on above: Performed By: #### C MP, LIPID, TSH #### [facility] [address] [place] [address] Dr. Mike Ball CO2 [Moles/Vol] 33.6 mmol/L Critically high 21.0-32.0 [facility] Comment on above: Performed By: #### C MP, LIPID, TSH #### [facility] [address] [place] [address] Dr. Mike Ball Creatinine [Mass/Vol] 0.71 mg/dL Normal 0.55-1.02 [facility] Comment on above: Performed By: #### C MP, LIPID, TSH #### [facility] [address] [address] [address] Mike Ball EGFR-AF YEMENI >60 Normal >=60 [facility] Comment on above: Performed By: #### C MP, LIPID, TSH #### [facility] [address] [address] [address] Mike Ball EGFR-NON AF YEMENI >60 Normal >=60 [facility] Comment on above: Performed By: #### C MP, LIPID, TSH #### [facility] [address] [address] [address] Mike Ball Globulin (S) [Mass/Vol] 2.9 g/dL Normal [facility] Comment on above: Performed By: #### C MP, LIPID, TSH #### [facility] [address] [address] [address] Mike Ball Glucose [Mass/Vol] 120 mg/dL Critically high 74-106 [facility] Comment on above: Performed By: #### C MP, LIPID, TSH #### [facility] [address] [address] [address] Mike Ball Potassium [Moles/Vol] 3.6 mmol/L Normal 3.5-5.1 [facility] Comment on above: Performed By: #### C MP, LIPID, TSH #### [facility] [address] [address] [address] Mike Ball Protein [Mass/Vol] 7.0 g/dL Normal 6.4-8.2 [facility] Comment on above: Performed By: #### C MP, LIPID, TSH #### [facility] [address] [address] [address] Mike Ball Sodium [Moles/Vol] 141 mmol/L Normal 136-145 [facility] Comment on above: Performed By: #### C MP, LIPID, TSH #### [facility] [address] [address] [address] Mike Ball Urea nitrogen [Mass/Vol] 21.0 mg/dL Critically high 7.0-18.0 [facility] Comment on above: Performed By: #### C MP, LIPID, TSH #### [facility] [address] [address] [address] Mike Ball Urea nitrogen/Creatinine [Mass ratio] 29.6 mg/mg Normal [facility] Comment on above: Performed By: #### C MP, LIPID, TSH #### [facility] [address] [address] [address] Mike Ball TSHon 11-09-2022 TSH 0.294 uIU/mL Critically low 0.358-3.740 [facility] Comment on above: Performed By: #### C MP, LIPID, TSH #### [facility] [address] [address] [address] Mike Ball MG MAMM SCREEN 3D PETAR CADon 09-10-2022 MG MAMM SCREEN 3D PETAR CAD Patient: ROBYN TAI Exam Date: 09/10/2022 : 1955 Gender:F Ordering : DR FLORENCIA WOLF M.D. Admission #: [id number] Family : Order #: [id number] CLICK HERE TO VIEW EXAM RADIOLOGY REPORT [...] at age 72. LOCATION: [facility] BREAST COMPOSITION: Heterogeneously dense,which may obscure small [...] 09/10/2022 at 11:53 Normal [facility] Cardiovascular Lab Reporton 11-06-2019 Cardiovascular Lab Report [facility] Patient Name: [facility] Robyn He MR #: [id number] Department of Physician: Benitez Patterson Medicine MSabino Division of Service Date: 11/05/2019 Cardiology Birthdate: 1955 Adult Cardiovascular Room #: [facility] [address] [place] [id number] Cardiovascular Laboratory Report FINAL IMPRESSIONS: 1. Mild coronary artery disease. 2. Moderately reduced global left ventricular systolic function. 3. Aabn-cp-hexihwmy mitral regurgitation. 4. Mildly elevated right-sided heart pressures. 5. Normal cardiac output/cardiac index. RECOMMENDATIONS: 1. Aggressive cardiovascular risk factor modification. 2. Optimization of medical management; for the mild coronary artery disease, the patient will be started on aspirin, moderate intensity statin therapy and beta daruis. For her nonischemic cardiomyopathy, she will be [...] remain asymptomatic. 5. Follow up with Dr. Cheung/Dr. Patterson in the [facility]. 6. Follow up with Dr. Florencia Wolf as scheduled. PROCEDURES: Right heart catheterization, bilateral selective coronary angiography, left heart catheterization, left ventriculography, limited femoral angiography, placement of a 6-Guyanese MynxGrip closure device. METHODS: After risks, benefits, and alternatives were explained, written informed consent was obtained. The patient was prepped and draped in the usual sterile fashion over the right groin. Using 1% lidocaine solution, local infiltration anesthesia was achieved. Using a modified Seldinger technique, micropuncture kit, access to the right common femoral vein and artery was obtained. A 6-Guyanese 11 cm sheath was placed in each. Baseline femoral angiography was performed via the inner cannula of a micropuncture kit prior to up sizing to a 6-Guyanese sheath. Right heart catheterization was performed using [...] was elected to conclude the procedure. A 6-Guyanese MynxGrip closure device was deployed per protocol [...] Patterson M.D. Date Trans: 11/06/2019 06:49 A/evelino [id number] cc: Florencia Wolf M.D. [address] [place], [place] [id number] Girish Cheung M.D. [address] [id number] Normal [facility] BASIC METABOLIC PANELon 12-0 Calcium [Mass/Vol] 7.4 mg/dL Low 8.6-10.3 [facility] Comment on above: Performed By: #### 0 0071 #### [facility] [address] [place] [address], [facility] Chloride [Moles/Vol] 110 mmol/L High 98-107 [facility] Comment on above: Performed By: #### 0 0071 #### [facility] [address] [place] [address], [place] CO2 [Moles/Vol] 24 mmol/L Normal 21-31 [facility] Comment on above: Performed By: #### 0 0071 #### [facility] [address] [place] [address], [place] Creatinine [Mass/Vol] 0.50 mg/dL Low 0.60-1.20 [facility] Comment on above: Performed By: #### 0 0071 #### [facility] [address] [place] [address], [place] GFR/1.73 sq M predicted among blacks MDRD (S/P/Bld) [Vol rate/Area] mL/min/{1.73_m2} Normal >60 [facility] Comment on above: Performed By: #### 0 0071 #### [facility] [address] [place] [address], [place] GFR/1.73 sq M predicted among non-blacks MDRD (S/P/Bld) [Vol rate/Area] mL/min/{1.73_m2} Normal >60 [facility] Comment on above: Performed By: #### 0 0071 #### [facility] [address] [place] [address], [place] Glucose [Mass/Vol] 75 mg/dL Normal 70-100 [facility] Comment on above: Performed By: #### 0 0071 #### [facility] [address] [place] [address], [place] Potassium [Moles/Vol] 2.7 mmol/L Low 3.5-5.1 [facility] Comment on above: Performed By: #### 0 0071 #### [facility] [address] [place] [address], [place] Sodium [Moles/Vol] 141 mmol/L Normal 136-145 [facility] Comment on above: Performed By: #### 0 0071 #### [facility] [address] [place] [address], [place] Urea nitrogen [Mass/Vol] 16 mg/dL Normal 7-25 [facility] Comment on above: Performed By: #### 0 0071 #### [facility] [address] [place] [address], [place] Vital Signs Date Time Vital Sign Value Performing Clinician Facility 01-13-2025 10:42-0500 Body height 154.94 cm [facility] 01-13-2025 10:32-0500 Body mass index (BMI) [Ratio] 29.8 kg/m2 [facility] 01-13-2025 10:32-0500 Body weight 71.66 kg [facility] 01-13-2025 10:32-0500 Diastolic blood pressure 63 mm[Hg] [facility] 01-13-2025 10:32-0500 Heart rate 60 /min [facility] 01-13-2025 10:32-0500 Systolic blood pressure 132 mm[Hg] [facility] 12-16-2023 16:05-0500 Body height 157.48 cm Florencia Wolf Other [facility] Other 11-18-2023 14:00-0500 Body height 157.48 cm Florencia Wolf Other [facility] Other 11-18-2023 14:00-0500 Body mass index (BMI) [Ratio] 28.82 kg/m2 Florencia Wolf Other [facility] Other 11-18-2023 14:00-0500 Body temperature 96.8 [degF] Florencia Wolf Other [facility] Other 11-18-2023 14:00-0500 Body weight 71.49 kg Florencia Wolf Other [facility] Other 11-18-2023 14:00-0500 Diastolic blood pressure 72 mm[Hg] Florencia Wolf Other [facility] Other 11-18-2023 14:00-0500 Systolic blood pressure 130 mm[Hg] Florencia Wolf Other [facility] Other Encounters Encounter Date Encounter Type Care Provider Facility Start: 01-13-2025 End: 01-13-2025 ambulatory [facility] Work Phone: Start: 01-13-2025 End: 01-13-2025 Patient encounter procedure [facility] Work Phone: Start: 01-11-2025 Non-patient / Non-visit [facility] [employer] Work Phone: Start: 01-06-2025 Patient encounter status [facility] Start: 01-06-2025 End: 01-06-2025 ambulatory EHAB YONI [facility] Start: 06-17-2024 End: 06-17-2024 ambulatory MENDOZA PARK [facility] Start: 12-16-2023 End: 12-16-2023 ambulatory Florencia Wolf Other [facility] Other Start: 12-16-2023 Telephone encounter Florencia Wolf [facility] Start: 11-28-2023 End: 11-28-2023 ambulatory Florencia Wolf Other [facility] Other Start: 11-28-2023 Telephone encounter Florencia Wolf [facility] Start: 11-18-2023 End: 11-18-2023 ambulatory Florencia Wolf Other [facility] Other Start: 11-18-2023 Encounter for genera l adult medical examination without abnormal findings Florencia Wolf [facility] Start: 11-18-2023 Periodic preventive med est patient 65yrs& older Florencia Wolf [facility] Start: 09-11-2023 End: 09-11-2023 ambulatory Florencia Wolf Other [facility] Other Start: 09-11-2023 Telephone encounter Florencia Wolf [facility] Start: 07-10-2023 End: 07-10-2023 ambulatory Boo Walker Other [facility] Other Start: 07-10-2023 Telephone encounter Boo Walker [facility] Start: 06-18-2023 End: 06-18-2023 ambulatory Boo Walker Other [facility] Other Start: 06-18-2023 Telephone encounter Boo [facility] Start: 06-14-2023 End: 06-14-2023 ambulatory Boo Walker Other [facility] Other Start: 06-14-2023 Telephone encounter Boo [facility] Start: 06-07-2023 End: 06-07-2023 ambulatory Florencia Wolf Other [facility] Other Start: 06-07-2023 Nursing evaluation o f patient and report Florencia Wolf [facility] Start: 03-28-2023 End: 03-29-[address] BOO WALKER Facility:[facility] Start: 12-12-2022 ambulatory FRAN ASHTON Facility:[facility] Start: 11-19-2022 End: 11-20-[address] HORACIO ORO Facility:[facility] Start: 11-13-2022 Adult health examination Boo Walker Other [facility] Other Start: 11-12-2022 Encounter for genera l adult medical examination without abnormal findings DR FLORENCIA WOLF [facility] Start: 11-09-2022 End: 11-10-[address] FLORENCIA WOLF Facility:[facility] Start: 11-09-2022 End: 11-10-2022 Encounter for general adult medical examination without abnormal findings DR FLORENCIA WOLF Facility:[facility] Start: 10-05-2022 End: 10-06-[address] LILIYA PONCE . Facility:[facility] Start: 09-10-2022 End: 09-11-[address] FLORENCIA WOLF Facility:[facility] Start: 11-05-2019 End: 11-06-2019 Patient encounter procedure EHAB A YONI Facility:[facility] Start: 10-06-2019 Problem, abnormal examination Boo Walker Other [employer] [facility] Other Procedures Date Procedure Procedure Detail Performing Clinician Start: 04-08-2014 General examination of patient Boo Walker Other Screening for malign ant neoplasm of breast Boo Walker Other Plan of Treatment Date Care Activity Detail Author [facility] Immunizations Immunization Date Immunization Notes Care Provider Miguel valenciacheryl 03-25-2023 Shingrix 50 MCG/0.5M L; Translations: [Shingrix 50 MCG/0.5ML] Florencia Wolf Other [facility] [employer] Other Payers Date Payer Category Payer Unknown [id number] 2019 Unknown [id number] 1957 Self-pay [id number] 1955 Unknown [id number] 2.16.8 [id number] 1955 Unknown [id number] 2.16.84 [id number] 1955 Unknown [id number] 2.16.84 [id number] 1955 Unknown [id number] 2.16.84 [id number] 1955 Unknown [id number] 2.16.84 [id number] 1955 Unknown [id number] 2.16.84 [id number] Unknown [id number] Unknown [id number] 2.16.84 [id number] Social History Date Type Detail Facility Sex Assigned At [facility] Work Phone: Start: 01-13-2025 Sex Female (finding) [facility] Start: 1955 Sex Assigned At Female [facility] Clinical Notes 06-07-2023 to 01-06-2025 Note Date & Type Note Facility 01-06-2025 Note [facility] SUBJECTIVE Patient here for 6 mo follow [...] diastolic dysfunction, MR, HTN, anxiety. 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 [facility] 06-17-2024 Note Cardiovascular Medic ine [facility] SUBJECTIVE Chief Complaint Patient presents with Follow-up 6 month follow up Robyn Tai is a 68 y.o. female here for follow-up. HPI PMHx of HFrEF, NICM (viral), mild CAD per 11/2019 cath, diastolic dysfunction, MR, HTN, anxiety. 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 Coronary (more content not included)... [facility] 11-29-2023 History general N arrative - [...] surgical procedures, hx of, Problem Comment : [facility] 1996 - dysmenorrhea - BSO and Appy B upper blepharoplasty Colonoscopy 2010 - hyperplastic polyp, Problem Status : Active, Surgical History 2: 06/2018 - Stepanic, Problem S tatus : Active, Surgical History 1: Problem Title : s urgical procedures, hx of, Problem Description : surgical procedures, hx of, Problem Comment : [facility] 1996 - dysmenorrhea - BSO and Appy B upper blepharoplasty Colonoscopy 2010 - hyperplastic polyp R knee arthroscopic surgery Surgical History 2: 06/2018, Problem Status : Act linnea, [facility] Other 12-28-2023 Evaluation note* Encounter Date Diagnosis Assessment Notes Treatment Notes Treatment Clinical Notes Nov, Acute cystitis without hematuria (ICD-10 - N30.00) [facility] Other 12-22-2023 History general Narrative - Reported* [...] surgical procedures, hx of, Problem Comment : [facility] 1996 - dysmenorrhea - BSO and Appy B upper blepharoplasty Colonoscopy 2010 - hyperplastic polyp, Problem Status : Active, Surgical History 2: 06/2018 - Stepanic, Problem S tatus : Active, Surgical History 1: Problem Title : s urgical procedures, hx of, Problem Description : surgical procedures, hx of, Problem Comment : [facility] 1996 - dysmenorrhea - BSO and Appy B upper blepharoplasty Colonoscopy 2010 - hyperplastic polyp R knee arthroscopic surgery Surgical History 2: 06/2018, Problem Status : Act linnea, [facility] Other 12-18-2023 Evaluation note* Encounter Date Diagnosis [...] or operate machinery while taking this medication. [employer] [facility] Other 10-11-2023 Evaluation note* Encounter Date Diagnosis Assessment Notes Treatment Notes Treatment Clinical Notes Sep, Screening mammogram, encounter for (ICD-10 - Z12.31) [facility] Other 07-14-2023 Evaluation note* Encounter Date Diagnosis Assessment Notes Treatment Notes Treatment Clinical Notes Jun, Acute cystitis with hematuria (ICD-10 - N30.01) [facility] Other 07-14-2023 Evaluation note* Encounter Date Diagnosis Assessment Notes Treatment Notes Treatment Clinical Notes Jun, Acute cystitis without hematuria (ICD-10 - N30.00) [facility] Other 07-07-2023 Evaluation note* Encounter Date Diagnosis Assessment Notes Treatment Notes Treatment Clinical Notes Jun, Acute cystitis with hematuria (ICD-10 - N30.01) [employer] [facility] Other Evaluation noteNo InformationNort [employer] Other Evaluation note* Diagnosis Onset Date Resolution Status Admit Date Elevated TSH acute January 10:25am [facility] Work Phone: Hisiwje general Narrative - Reported* Type Description Date Surgical History Problem Title : past surgical history reviewed, Problem Description : past surgical history reviewed, Problem Comment : reviewed - no changes required, Problem Status : Active, Surgical History Problem Title : surg ical procedures, hx of, Problem Description : surgical procedures, hx of, Problem Comment : [facility] 1996 - dysmenorrhea - BSO and Appy B upper blepharoplasty Colonoscopy 2010 - hyperplastic polyp, Problem Status : Active, Surgical History 2: 06/2018 - Stepanic, Problem S tatus : Active, Surgical History 1: Problem Title : s urgical procedures, hx of, Problem Description : surgical procedures, hx of, Problem Comment : [facility] 1996 - dysmenorrhea - BSO and Appy B upper blepharoplasty Colonoscopy 2010 - hyperplastic polyp R knee arthroscopic surgery Surgical History 2: 06/2018, Problem Status : Act linnea, [employer] [facility] Other History general Narrative - Reported* Type Description Date Medical History hypertension Medical History anxiety Medical History insomnia Medical History hypertriglyceridemia Medical History GERD Surgical History Hysterectomy 1996 Surgical History Bilateral Salpingo oophorectomy Surgical History Blepharoplasty Surgical History Colonoscopy [employer] Other Summary Purpose Family History No Family History Records FoundNo Family History Records FoundNo Family History Records Found Advance Directives Advance Directive Response Recorded Date/ Time Advance Directives No January 10:24am Chief Complaint and Reason for Visit Chief Complaint Admit Date Wellness January 13, 2025 10:25am Reason for Visit Admit Date Elevated TSH January 13, 2025 10:25am Additional Source Comments INFORMATION SOURCE (unrecogn ized section and content) DATE CREATED AUTHOR 03/29/[address] [facility] DATE CREATED AUTHOR AUTHOR'S ORGANIZ ATION 04/04/2023 [facility] DATE CREATED AUTHOR AUTHOR'S ORGANIZ ATION 01/08/2025 [facility] REASON FOR VISIT (unrecogniz ed section and content) UA-Frequency, BurningNo Info rmationNo InformationNo InformationUpdaterefillMammogram OrderwellnesslabsUpdated Medical Historywellness Care Teams (unrecognized sec tion and content) Team Status: Active Member Role Status Dates Florecnia Wolf MD Primary Care Provider Active Team Status: Active Member Role Status Dates Florencia Wolf MD Primary Care Provide r, Attending Provider Active Start: January 11, 2025 Team Status: Inactive Member Role Status Dates Florencia Wolf MD Primary Care Provide r, Attending Provider Active Start: January 13, 2025 End: January 13, 2025 Goals (unrecognized section and content) Goals may be documented in a n alternate section FOR RECORDS PERTAINING TO PATIENTS WHO ARE [...] BE BASED ON THE PRIMARY CLINICAL RECORDS. [facility]. provides no warranty or guarantee of the accuracy or completeness of information in this document.
[2025-04-12 08:49] LABS: Thyroid Stimulating Hormone 0.414 uIU/mL (0.358-3.740)
[2025-04-12 09:13] LABS: Free T4 1.25 ng/dL (0.76-1.46)
== END 2025-04-12 06:59 | disposition home or self-care (01) ==
LOC: LAB 06:58
PROVIDERS: PCP Family Medicine; Visit Provider Family Medicine
DX: Z00.00 Encounter for general adult medical examination without abnormal findings (principal); R79.89 Other specified abnormal findings of blood chemistry
CPT/HCPCS: 36415; 84439; 84443